=== PATIENT | male | born 1940 | race Caucasian/White ===

== ENCOUNTER → 2016-05-01 | Outpatient (CLI) | payer OTHER ==
[~2016-05-01] MED LIST: ALT25 PO; AMOX500C3 PO; ATOR-22 PO; ATOR10TA88 PO; CHOL100041 PO; CLIN1LOT TOP; CLOP1TAB15 PO; CYAN10005 PO; GLC500 PO; GLIM2TAB2 PO; GLIM4TAB2 PO; HYDR25SU20 PR; METF500T5 PO; NVLGI7030 SC; OMEP20CA9 PO; POTASSIUM PO; RAMI2.5C PO; SITA100T3 PO
[2016-05-01 11:42] LABS: ESTIMATED AVERAGE GLUCOSE 203 mg/dl; HA1C FLAG Normal (Normal)
[2016-05-01 12:56] LABS: RATIO 16.8 mcg/mg (0-30.0)
== END | disposition home or self-care (01) ==
LOC: C.LAB 10:18
PROVIDERS: ATTEND Nurse Practitioner Adult Health
DX: E11.65 Type 2 diabetes mellitus with hyperglycemia (principal); E78.5 Hyperlipidemia, unspecified

== ENCOUNTER 2016-09-20 20:21 | Emergency (ER) | payer OTHER ==
[~2016-09-20] VITALS: Ht 162.6 cm; Wt 82.7 kg
[~2016-09-20 20:21] MED LIST changes: -AMOX500C3 PO; -ATOR-22 PO; +ATOR10TA82 PO; -ATOR10TA88 PO; -CLIN1LOT TOP; -CLOP1TAB15 PO; -CYAN10005 PO; -HYDR25SU20 PR; -METF500T5 PO; -NVLGI7030 SC; -POTASSIUM PO; -RAMI2.5C PO
[2016-09-20 20:25] VITALS: TEMP 36.6; Ht 162.6 cm; Wt 82.7 kg
[2016-09-20 21:12] LABS: BASO % 0.5 %; BASO ABS # 0.06 K/uL (0-0.2); COMPLETE YES; EOS % 6.4 %; HEMATOCRIT 48.9 % (42-52); IG% 0.5 %; LYMPH % 25.8 %; LYMPH ABS # 2.98 K/uL (1.2-3.4); MEAN CELL VOLUME 92.8 fL (80-100); MEAN CORPUSCULAR HEMOGLOBIN 30.2 pg (25-34); MEAN CORPUSCULAR HGB CONC 32.5 g/dl (32-36); MEAN PLATELET VOLUME 9.8 fL (7.4-10.4); MONO % 7.8 %; PLATELET COUNT 261 K/uL (130-400); RED BLOOD COUNT 5.27 M/uL (4.7-6.1); WHITE BLOOD COUNT 11.55 K/uL (4.8-10.8)
[2016-09-20 21:21] LABS: INR 1.1 (0.9-1.1); PARTIAL THROMBOPLASTIN RATIO 1.1; PROTHROMBIN TIME (PATIENT) 11.4 SECONDS (9.0-12.0)
[2016-09-20] MEDS ORDERED: METF500T5 PO (21:29)
[2016-09-20] MEDS ORDERED: AMOX500C3 PO (21:29)
[2016-09-20] MEDS ORDERED: CYAN10005 PO (21:29)
[2016-09-20] MEDS ORDERED: CLIN1LOT TOP (21:29)
[2016-09-20] MEDS ORDERED: RAMI2.5C PO (21:29)
[2016-09-20] MEDS ORDERED: NVLGI7030 SC ×2 (21:29)
[2016-09-20] MEDS ORDERED: HYDR25SU20 PR (21:29)
[2016-09-20] MEDS ORDERED: ATOR-22 PO (21:29)
[2016-09-20 21:30] LABS: BLOOD UREA NITROGEN 27 mg/dl (7-18); BUN/CREATININE RATIO 21.1 (10-20); CALCIUM 9.1 mg/dl (8.5-10.1); CARBON DIOXIDE 26 mmol/L (21-32); CHLORIDE 109 mmol/L (98-107); GLUCOSE 98 mg/dl (70-99); SODIUM 143 mmol/L (136-145)
[2016-09-20] MEDS ORDERED: POTASSIUM PO (21:32)
[2016-09-20 21:36] LABS: ALKALINE PHOSPHATASE 95 U/L (45-117); ALT/SGPT 43 U/L (12-78); AST/SGOT 21 U/L (15-37); CKMB/CK RATIO 2.6 (0-3.0)
[2016-09-20] MEDS ORDERED: CLOP1TAB15 PO (22:21)
--- NOTE | 2016-09-21 00:14 | EMERGENCY ROOM VISIT NOTE ---
History Report prepared by Jared: Chandler Recio Under the Supervision of: Dr. Radhames Rios D.O. First contact with patient: 20:36 Chief Complaint: RECTAL BLEEDING Stated Complaint: RECTAL BLEEDING History of Present Illness The patient is a 75 year old male who presents to the Emergency Room with complaints of sudden rectal bleeding starting earlier today. The patient states that he had colonoscopy and polypectomy 11 days ago due to the presence of 6 precancerous nodules. He reports that the doctor burned and clipped the site. The patient states that he was fine after the surgery, but he started to experience rectal bleeding today. He reports that he was in his kitchen when he had an accidental bowel movement. The patient states he went to the bathroom and noticed a lot of blood had passed during his bowel movement. The patient reports he was able to have a bowel movement earlier today prior to his incontinence episode and denies any bleeding during his prior movement. He reports that he has an upcoming colonoscopy in November. The patient states he is currently on a Ramipril due to his carotid artery issue. He states that he monitors the artery with his doctor once a year. The patient denies any rectal or abdominal pain. Source of History: patient Onset: today Position: other (rectum) Quality: other (bleeding) Timing: other (sudden) Modifying Factors (Worsening): other (bowel movement) Associated Symptoms: No abdominal pain Review of Systems See HPI for pertinent positives & negatives. A total of 10 systems reviewed and were otherwise negative. Past Medical & Surgical Medical Problems: (1) Diverticulosis Colon (W/O Ment Of Hemorrhage) (2) Hypertension Nos (3) Hypothyroidism Nos (4) Urin Tract Infection Nos (5) Vitamin D Deficiency Nos Social History Smoking Status: Former Smoker Drug Use: none Marital Status: single Housing Status: lives alone Occupation Status: retired Current/Historical Medications Scheduled Amoxicillin (Amoxil), 4 CAP PO UD Atorvastatin (Lipitor), 20 MG PO DAILY Cholecalciferol (D 1000), 2,000 UNIT PO QD Clindamycin Phosphate (Topical (Cleocin-T), 1 APPLN TOP PRN Clopidogrel (Plavix), 75 MG PO DAILY Cyanocobalamin (Vitamin B-12), 1,000 MCG PO DAILY Insulin Aspart 70/30 (Novolog Mix 70/30), 45 UNITS SC QPM Insulin Aspart Protamine & Asp (Novolog Mix 70/30), 34 UNITS SC QAM Metformin Hcl Er (Glucophage Er), 500 MG PO DAILY Omeprazole (Prilosec), 20 MG PO DAILY Ramipril (Ramipril), 1 CAP PO DAILY [Potassium], 99 MG PO DAILY Scheduled PRN Hydrocortisone Acetate (Rectal (Anusol-Hc), 25 MG MA HS PRN for Hemorrhoids Allergies Coded Allergies: Niacinamide (Unverified Allergy, Unknown, RASH, 01/03/15) Procaine (Unverified Allergy, Unknown, RASH, 01/03/15) Pyridoxine (Unverified Allergy, Unknown, RASH, 01/03/15) Riboflavin (Unverified Allergy, Unknown, RASH, 01/03/15) Tetracycline (Unverified Allergy, Unknown, RASH, 01/03/15) Thiamine (Unverified Allergy, Unknown, RASH, 01/03/15) Physical Exam Vital Signs Date Time Temp Pulse Resp B/P (MAP) Pulse Ox O2 Delivery O2 Flow Rate FiO2 09/21/16 00:19 81 18 157/69 95 09/20/16 23:10 79 16 160/77 90 Room Air 09/20/16 21:53 81 121/66 96 Room Air 09/20/16 20:25 36.6 99 16 165/81 99 Room Air Physical Exam CONSTITUTIONAL/VITAL SIGNS: Reviewed / noted above. GENERAL: Non-toxic in appearance. INTEGUMENTARY: Warm, dry, and [place]. HEAD: Normocephalic. EYES: without scleral icterus or trauma. ENT/OROPHARYNX: clear and moist. LYMPHADENOPATHY/NECK: Is supple without lymphadenopathy or meningismus. RESPIRATORY: Lungs clear and equal. CARDIOVASCULAR: Regular rate and rhythm. GI/ABDOMEN: Soft and nontender. No organomegaly or pulsatile mass. No rebound or guarding. Normal bowel sounds. EXTREMITIES: Warm and well perfused. BACK: No CVA tenderness. NEUROLOGICAL: Intact without focal deficits. PSYCHIATRIC: normal affect. MUSCULOSKELETAL: Normally developed with good muscle tone. Medical Decision & Procedures Laboratory Results 09/20/16 20:56 Red Blood Count 5.27, Mean Corpuscular Volume 92.8, Mean Corpuscular Hemoglobin 30.2, Mean Corpuscular Hemoglobin Concent 32.5, Mean Platelet Volume 9.8, Neutrophils (%) (Auto) 59.0, Lymphocytes (%) (Auto) 25.8, Monocytes (%) (Auto) 7.8, Eosinophils (%) (Auto) 6.4, Basophils (%) (Auto) 0.5, Neutrophils # (Auto) 6.81, Lymphocytes # (Auto) 2.98, Monocytes # (Auto) 0.90, Eosinophils # (Auto) 0.74, Basophils # (Auto) 0.06 09/20/16 20:56 Test 09/20/16 20:56 09/20/16 23:37 White Blood Count 11.55 K/uL (4.8-10.8) Red Blood Count 5.27 M/uL (4.7-6.1) Hemoglobin 15.9 g/dL (14.0-18.0) Hematocrit 48.9 % (42-52) Mean Corpuscular Volume 92.8 fL (80-100) Mean Corpuscular Hemoglobin 30.2 pg (25-34) Mean Corpuscular Hemoglobin Concent 32.5 g/dl (32-36) Platelet Count 261 K/uL (130-400) Mean Platelet Volume 9.8 fL (7.4-10.4) Neutrophils (%) (Auto) 59.0 % Lymphocytes (%) (Auto) 25.8 % Monocytes (%) (Auto) 7.8 % Eosinophils (%) (Auto) 6.4 % Basophils (%) (Auto) 0.5 % Neutrophils # (Auto) 6.81 K/uL (1.4-6.5) Lymphocytes # (Auto) 2.98 K/uL (1.2-3.4) Monocytes # (Auto) 0.90 K/uL (0.11-0.59) Eosinophils # (Auto) 0.74 K/uL (0-0.5) Basophils # (Auto) 0.06 K/uL (0-0.2) RDW Standard Deviation 47.6 fL (36.4-46.3) RDW Coefficient of Variation 14.1 % (11.5-14.5) Immature Granulocyte % (Auto) 0.5 % Immature Granulocyte # (Auto) 0.06 K/uL (0.00-0.02) Prothrombin Time 11.4 SECONDS (9.0-12.0) Prothromb Time International Ratio 1.1 (0.9-1.1) Activated Partial Thromboplast Time 27.5 SECONDS (21.0-31.0) Partial Thromboplastin Ratio 1.1 Anion Gap 8.0 mmol/L (3-11) Est Creatinine Clear Calc Drug Dose 46.2 ml/min Estimated GFR () 61.0 Estimated GFR (Non- 52.6 BUN/Creatinine Ratio 21.1 (10-20) Calcium Level 9.1 mg/dl (8.5-10.1) Total Bilirubin 0.5 mg/dl (0.2-1) Direct Bilirubin 0.1 mg/dl (0-0.2) Aspartate Amino Transf (AST/SGOT) 21 U/L (15-37) Alanine Aminotransferase (ALT/SGPT) 43 U/L (12-78) Alkaline Phosphatase 95 U/L (45-117) Total Creatine Kinase 112 U/L (39-308) Creatine Kinase MB 2.9 ng/ml (0.5-3.6) Creatine Kinase MB Ratio 2.6 (0-3.0) Troponin I < 0.015 ng/ml (0-0.045) Total Protein 7.1 gm/dl (6.4-8.2) Albumin 3.5 gm/dl (3.4-5.0) Bedside Glucose 86 mg/dl (70-99) Laboratory results as stated above per my review. ECG Indication: other (rectal bleeding) Rate (beats per minute): 91 Rhythm: normal sinus Findings: no acute ischemic change, no ectopy ED Course 203: Previous medical records were reviewed. The patient was evaluated in room B02. A complete history and physical examination was performed. 2347: On reevaluation, the patient is resting comfortably. I discussed the results and findings with the patient. He verbalized agreement of the treatment plan. He was discharged home. Medical Decision Differential includes acute coronary syndrome, myocardial infarction, CVA, TIA, anemia, infection, pneumonia, UTI, pyelonephritis, poor nutrition, dehydration, electrolyte disturbance,hypoglycemia. Medication Reconciliation: I attest that I have personally reviewed the patient' s current medication list. Blood pressure Screening: Patient was found to have an elevated blood pressure and was referred to their primary doctor for recheck and further treatment. This is a 75-year-old male who presents to the ED with a chief complaint of rectal bleeding. The patient states that he had a polypectomy 10 days ago during colonoscopy. He states that one of the polyps bled and a Was placed. Tonight he had an episode of bloody bowel movement about 30 minute prior to arrival. The patient denies any other symptoms. His initial blood pressure was hypertensive. The patient's exam was unremarkable. His hemoglobin was 15.9. The BUN is 27. Complete metabolic panel was normal. Troponin is negative. The patient was unable to have any additional bloody stools during his ED stay. He was observed for 4 hours without any additional bleeding. He was felt to be stable for discharge. He was told to return should he have any recurrence or additional bleeding. Impression Primary Impression: GI bleed Scribe Attestation The scribe's documentation has been prepared under my direction and personally reviewed by me in its entirety. I confirm that the note above accurately reflects all work, treatment, procedures, and medical decision making performed by me. Departure Information Dispostion Home / Self-Care Referrals No Doctor, Assigned (PCP) Patient Instructions My [facility] Additional Instructions Return to the emergency department for recheck of blood work if you have any additional significant rectal bleeding. Follow-up with your doctor for further care and evaluation in 1-2 days. Return to the emergency department for worsening or new symptoms or any concerns. You have been examined and treated today on an emergency basis only. This is not a substitute for, or an effort to provide, complete comprehensive medical care. It is impossible to recognize and treat all injuries or illnesses in a single emergency department visit. It is therefore important that you follow up closely with your doctor. Call as soon as possible for an appointment.
[2016-09-21 00:19] VITALS: BP 157/69; PULSE 81; O2SAT 95
== END 2016-09-21 00:20 | disposition home or self-care (01) ==
LOC: C.EDB 20:22
DX: K92.2 Gastrointestinal hemorrhage, unspecified (principal); Z98.890 Other specified postprocedural states; Z86.010 Personal history of colon polyps; Z79.899 Other long term (current) drug therapy; I10 Essential (primary) hypertension; E03.9 Hypothyroidism, unspecified; Z87.440 Personal history of urinary (tract) infections; E55.9 Vitamin D deficiency, unspecified; Z87.891 Personal history of nicotine dependence; Z79.01 Long term (current) use of anticoagulants; Z79.82 Long term (current) use of aspirin

== ENCOUNTER → 2016-10-31 | Outpatient (CLI) | payer OTHER ==
[~2016-10-31] MED LIST changes: -ALT25 PO; +AMOX500C3 PO; +ATOR-22 PO; -ATOR10TA82 PO; +CLIN1LOT TOP; +CLOP1TAB15 PO; +CYAN10005 PO; -GLC500 PO; -GLIM2TAB2 PO; -GLIM4TAB2 PO; +HYDR25SU20 PR; +METF500T5 PO; +NVLGI7030 SC; +POTASSIUM PO; +RAMI2.5C PO; -SITA100T3 PO
[2016-10-31 09:51] LABS: ESTIMATED AVERAGE GLUCOSE 192 mg/dl; HA1C FLAG Normal (Normal)
[2016-10-31 09:53] LABS: ALT/SGPT 40 U/L (12-78); BLOOD UREA NITROGEN 24 mg/dl (7-18); BUN/CREATININE RATIO 24.5 (10-20); CARBON DIOXIDE 26 mmol/L (21-32); CHLORIDE 105 mmol/L (98-107); CREATININE 0.98 mg/dl (0.60-1.40); GLUCOSE 291 mg/dl (70-99); POTASSIUM 4.3 mmol/L (3.5-5.1); SODIUM 137 mmol/L (136-145)
[2016-10-31 09:57] LABS: ALB/GLOB RATIO 0.9 (0.9-2); ALKALINE PHOSPHATASE 88 U/L (45-117); AST/SGOT 23 U/L (15-37); CHOLESTEROL 90 mg/dl (0-200); CHOLESTEROL/HDL RATIO 3.1; HDL CHOLESTEROL 29 mg/dl; LDL CHOLESTEROL CALCULATED 49 mg/dl; TRIGLYCERIDES 61 mg/dl (0-150); VERY LOW DENSITY LIPOPROT CALC 12 mg/dl
== END | disposition home or self-care (01) ==
LOC: C.LAB 07:18
PROVIDERS: ATTEND Nurse Practitioner Adult Health
DX: E78.5 Hyperlipidemia, unspecified (principal); E11.65 Type 2 diabetes mellitus with hyperglycemia; I10 Essential (primary) hypertension

== ENCOUNTER → 2017-02-14 | Outpatient (CLI) | payer OTHER ==
[2017-02-14 09:37] LABS: HEMATOCRIT 51.3 % (42-52)
[2017-02-14 09:59] LABS: ESTIMATED AVERAGE GLUCOSE 174 mg/dl; HA1C FLAG Normal (Normal)
== END | disposition home or self-care (01) ==
LOC: C.LAB 08:34
PROVIDERS: ATTEND Nurse Practitioner Adult Health
DX: E78.5 Hyperlipidemia, unspecified (principal); E11.65 Type 2 diabetes mellitus with hyperglycemia; Z79.4 Long term (current) use of insulin; I10 Essential (primary) hypertension

== ENCOUNTER → 2017-06-17 | Outpatient (CLI) | payer OTHER ==
[~2017-06-17] MED LIST changes: +OPTIRAY 320 IV PRN
[2017-06-17 16:45] LABS: BASO % 0.4 %; BASO ABS # 0.06 K/uL (0-0.2); EOS % 1.9 %; EOS ABS # 0.26 K/uL (0-0.5); HEMATOCRIT 50.4 % (42-52); IG# 0.05 K/uL (0.00-0.02); LYMPH % 20.4 %; LYMPH ABS # 2.74 K/uL (1.2-3.4); MEAN CELL VOLUME 92.3 fL (80-100); MEAN CORPUSCULAR HEMOGLOBIN 31.1 pg (25-34); MEAN CORPUSCULAR HGB CONC 33.7 g/dl (32-36); MEAN PLATELET VOLUME 10.2 fL (7.4-10.4); MONO % 6.1 %; MONO ABS # 0.82 K/uL (0.11-0.59); NEUT % 70.8 %; NEUT ABS # 9.47 K/uL (1.4-6.5); PLATELET COUNT 183 K/uL (130-400); RED CELL DISTRIBUTION WIDTH CV 15.3 % (11.5-14.5); RED CELL DISTRIBUTION WIDTH SD 51.4 fL (36.4-46.3)
--- NOTE | 2017-06-17 16:57 | DIAGNOSTIC IMAGING REPORT ---
CT ANGIOGRAM OF THE CHEST CLINICAL HISTORY: Hypoxia COMPARISON STUDY: 09/14/2013 TECHNIQUE: Following the IV administration of 100 mL of Optiray-320, CT angiogram of the thorax was performed from the thoracic inlet to the lung bases utilizing the pulmonary embolus protocol. Images are reviewed in the axial, sagittal, and coronal planes. IV contrast was administered without complication. MIP imaging was performed. A dose lowering technique was utilized adhering to the principles of ALARA. CT DOSE: 511.86 mGycm FINDINGS: There is persistent mediastinal and hilar lymphadenopathy. An index right paratracheal lymph node measures 12 mm in short axis. This previously measured 10 mm. An index subcarinal lymph node measures 15 mm in short axis. This previously measured 13 mm. There was no evidence of thoracic aortic dilatation. There were no pulmonary artery filling defects to indicate acute pulmonary embolism. No pleural effusions are visualized. There is a solid 10.5 mm right upper lobe pulmonary nodule. This previously measured 9.6 mm. The slow growth rate favors a benign etiology. There is a stable 7 mm subpleural left lower lobe pulmonary nodule. There is no lobar consolidation. There are dependent atelectatic changes. There is subpleural interstitial thickening with an upper lung zone predominance. This appears progressive. There is persistent diffuse esophageal wall thickening IMPRESSION: 1. No evidence of acute pulmonary embolism 2. Mild progression the patient's mediastinal and hilar lymphadenopathy 3. Essentially stable pulmonary nodules 4. Persistent diffuse esophageal thickening 5. Suspected underlying interstitial lung disease with a subpleural and upper lung zone predominance Electronically signed by: Franklin Johnson M.D. 06/17/2017 4:56 PM Dictated Date/Time: 06/17/2017 4:47 PM
[2017-06-17 17:04] LABS: ALBUMIN 3.4 gm/dl (3.4-5.0); ALT/SGPT 35 U/L (12-78); BLOOD UREA NITROGEN 26 mg/dl (7-18); CALCIUM 9.3 mg/dl (8.5-10.1); CARBON DIOXIDE 26 mmol/L (21-32); CREATININE 1.09 mg/dl (0.60-1.40); GLUCOSE 77 mg/dl (70-99); SODIUM 137 mmol/L (136-145)
[2017-06-17 17:09] LABS: ALKALINE PHOSPHATASE 94 U/L (45-117); AST/SGOT 20 U/L (15-37); TOTAL PROTEIN 7.1 gm/dl (6.4-8.2)
[2017-06-18 06:47] LABS: HEMOGLOBIN A1C 8.3 % (4.5-5.6)
== END | disposition home or self-care (01) ==
LOC: C.CTS 15:51
PROVIDERS: ATTEND Internal Medicine
DX: Z01.812 Encounter for preprocedural laboratory examination (principal); R09.02 Hypoxemia; E11.9 Type 2 diabetes mellitus without complications; Z79.4 Long term (current) use of insulin; I10 Essential (primary) hypertension; R06.00 Dyspnea, unspecified

== ENCOUNTER → 2017-06-24 | Outpatient (CLI) | payer OTHER ==
[~2017-06-24] MED LIST changes: -OPTIRAY 320 IV PRN
[2017-06-25 20:41] LABS: ANA SCREEN TC 249X NEGATIVE (NEGATIVE)
== END | disposition home or self-care (01) ==
LOC: C.LAB 08:25
PROVIDERS: ATTEND Internal Medicine
DX: R59.0 Localized enlarged lymph nodes (principal)

== ENCOUNTER → 2017-07-03 | Outpatient (CLI) | payer OTHER | END | disposition home or self-care (01) | LOC: C.LAB 17:18 | PROVIDERS: ATTEND Internal Medicine Pulmonary Disease | DX: J84.9 Interstitial pulmonary disease, unspecified (principal) ==

== ENCOUNTER → 2017-10-28 | Outpatient (CLI) | payer OTHER ==
[~2017-10-28] MED LIST changes: +INSDGIPEN SQ; +LVQ750 PO; +NVLGI/PEN SQ
[2017-10-28 12:36] LABS: HEMOGLOBIN A1C 7.9 % (4.5-5.6)
== END | disposition home or self-care (01) ==
LOC: C.LAB 10:37
PROVIDERS: ATTEND Nurse Practitioner Adult Health
DX: Z00.00 Encounter for general adult medical examination without abnormal findings (principal); E11.9 Type 2 diabetes mellitus without complications; Z79.4 Long term (current) use of insulin; I10 Essential (primary) hypertension

== ENCOUNTER 2017-11-04 11:55 | Inpatient (IN) | payer OTHER ==
[~2017-11-04] VITALS: Ht 162.6 cm; Wt 84.6 kg
[~2017-11-04 11:55] MED LIST changes: -INSDGIPEN SQ; -LVQ750 PO; -NVLGI/PEN SQ
[2017-11-04] MEDS ORDERED: OPTIRAY 320 IV PRN (12:15)
[2017-11-04] MEDS ORDERED: ONDANSETRON INJ 2 MG/ML 2 ML VIAL IV STA (12:17)
[2017-11-04 12:32] LABS: BASO % 0.3 %; BASO ABS # 0.04 K/uL (0-0.2); EOS % 0.5 %; EOS ABS # 0.08 K/uL (0-0.5); HEMATOCRIT 47.2 % (42-52); HEMOGLOBIN 15.6 g/dL (14.0-18.0); IG# 0.06 K/uL (0.00-0.02); LYMPH % 10.9 %; LYMPH ABS # 1.74 K/uL (1.2-3.4); MEAN CELL VOLUME 94.8 fL (80-100); MEAN CORPUSCULAR HEMOGLOBIN 31.3 pg (25-34); MEAN CORPUSCULAR HGB CONC 33.1 g/dl (32-36); MEAN PLATELET VOLUME 9.9 fL (7.4-10.4); MONO % 5.8 %; MONO ABS # 0.92 K/uL (0.11-0.59); NEUT % 82.1 %; NEUT ABS # 13.11 K/uL (1.4-6.5); PLATELET COUNT 236 K/uL (130-400); RED CELL DISTRIBUTION WIDTH CV 14.1 % (11.5-14.5); RED CELL DISTRIBUTION WIDTH SD 48.8 fL (36.4-46.3); WHITE BLOOD COUNT 15.95 K/uL (4.8-10.8)
[2017-11-04 12:41] LABS: INR 1.2 (0.9-1.1); PTT PATIENT 28.2 SECONDS (21.0-31.0)
--- NOTE | 2017-11-04 12:44 | DIAGNOSTIC IMAGING REPORT ---
CHEST ONE VIEW PORTABLE CLINICAL HISTORY: EVALUATE RESPIRATORY DISTRESS.DYSPNEA dyspnea COMPARISON STUDY: 05/18/2013 FINDINGS: Mild primary megaly. Increased interstitial prominence throughout both hemithoraces suggesting developing congestive failure and/or pulmonary edema. IMPRESSION: Developing congestive failure and/or pulmonary edema. The above report was generated using voice recognition software. It may contain grammatical, syntax or spelling errors. Electronically signed by: Dylan Sandoval M.D. 11/04/2017 12:43 PM Dictated Date/Time: 11/04/2017 12:42 PM
[2017-11-04 12:45] LABS: ALBUMIN 3.4 gm/dl (3.4-5.0); ALKALINE PHOSPHATASE 89 U/L (45-117); ALT/SGPT 33 U/L (12-78); AST/SGOT 20 U/L (15-37); BLOOD UREA NITROGEN 33 mg/dl (7-18); CALCIUM 8.8 mg/dl (8.5-10.1); CARBON DIOXIDE 23 mmol/L (21-32); CREATININE 1.09 mg/dl (0.60-1.40); GLUCOSE 259 mg/dl (70-99); POTASSIUM 4.1 mmol/L (3.5-5.1); SODIUM 137 mmol/L (136-145); TOTAL PROTEIN 7.3 gm/dl (6.4-8.2)
--- NOTE | 2017-11-04 13:45 | DIAGNOSTIC IMAGING REPORT ---
(CHEST FOR PE) ANGIO WITH CLINICAL HISTORY: 76 years-old Male presenting with ^EVALUATE FOR PE ^RESPIRATORY DISTRESS.DYSPNEA. TECHNIQUE: Multidetector CT angiography of the chest was performed after administration of intravenous contrast. 3-D volumetric and/or maximum intensity projection (MIP) images were subsequently reconstructed for review. IV contrast: 83 mL of Optiray 320. A dose lowering technique was used consistent with the principles of ALARA (as low as reasonably achievable). COMPARISON: 06/17/2017. CT DOSE (mGy.cm): The estimated cumulative dose is 457.90 mGy.cm. 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 Pulmonary vasculature: The study is suboptimal for the assessment of the pulmonary vascular tree secondary to timing of the contrast bolus and respiratory motion artifact. Allowing for limited image quality, no central filling defect to suggest pulmonary embolus. Main pulmonary artery enlarged measuring 3.5 cm in diameter. Flattening of the interventricular septum with relative enlargement of the right atrium and right ventricle. No intracardiac filling defect. No reflux of contrast into the hepatic veins. Remaining chest: On soft tissue windows, normal thyroid and thoracic inlet. Stable to slight interval increase in size of numerous mediastinal and hilar lymph nodes. And index node in the right paratracheal region measures 12 mm in the short axis, previously 11 mm. Atherosclerosis of the aorta. Mild multichamber enlargement of the heart. Coronary artery calcification. No pericardial or pleural effusion. Diffuse esophageal wall thickening greatest in the mid to distal portion as on prior exam. Cholecystectomy clips. On lung windows, solid nodule in the right middle lobe now measures 13 mm, previously 10 mm (series 4 image 148). Extensive peripheral groundglass and reticular opacities with diffuse added density of the lungs. This diffusely affects both upper and lower lobes. Solid 6 mm nodule in the lingula (series 4 image 153), previously 6 mm. Interlobular septal thickening also noted. On bone windows, degenerative changes of the spine. IMPRESSION: 1. Allowing for suboptimal image quality, no evidence of pulmonary embolus. 2. Diffuse added density of the lungs new from prior. Given the evidence of pulmonary arterial hypertension, this may indicate pulmonary edema. Interlobular septal thickening may also be secondary to congestive change. If the patient has underlying malignancy, these findings may also be due to lymphangitic carcinomatosis. 3. Chronic lung disease with subpleural fibrotic changes as on prior exam. 4. Stable to slight interval increase in size of the solid right middle lobe nodule, which has been present and is largely unchanged dating back to at least 2013 consistent with a benign etiology. Electronically signed by: Mp Henry M.D. 11/04/2017 1:44 PM Dictated Date/Time: 11/04/2017 1:18 PM
[2017-11-04] MEDS ORDERED: NVLGI/PEN SQ ×2 (13:46)
[2017-11-04] MEDS ORDERED: INSDGIPEN SQ (13:46)
[2017-11-04] MEDS ORDERED: FUROSEMIDE INJ 20 MG in SYRINGE 0 ML IV ONE ×2 (15:15→20:15)
[2017-11-04] MEDS ORDERED: FUROSEMIDE 40 MG/4 ML VIAL ONE (15:23)
--- NOTE | 2017-11-04 15:33 | EMERGENCY ROOM VISIT NOTE ---
History Report prepared by Jared: Niurka Matthews Under the Supervision of: Dr. John Rios M.D. First contact with patient: 12:00 Chief Complaint: SHORTNESS OF BREATH Stated Complaint: SOB History of Present Illness The patient is a 76 year old male who presents to the Emergency Room with complaints of worsening shortness of breath starting last night. The patient states that movement exacerbates his shortness of breath. The patient states that he wears 5L of Oxygen at home. He states that his pulse ox is usually around 70 but sometimes goes up to 80. The patient states that he stays constant at 5L and that he does not turn it up when he walks around. He reports that he does have portable Oxygen when he leaves his home but that it only goes up to 4L. The patient reports having a cough but states that this has been chronic. He denies being febrile. The patient states that he follows with the [facility] and states that he has an upcoming appointment. He denies being around any sick and he also denies changes in medications. The patient states that he is diabetic but denies being on steroids for it currently. Per nursing staff, the patient has an interstitial lung disease. The patient reports that he is not sure what is causing his lung disease. Per nursing staff , the patient went to the diabetic clinic today and became short of breath after walking from his car to the clinic. The patient reports that he lives by himself. Per notes, the patient has an interstitial lung disease, pulmonary hypertension , hypertension, and type 2 diabetes. Notes report that the patient was diagnosed with hypoxemia on 06/17/17 during a colonoscopy.The patient had an ABG on 07/05/17 and was 7.47/37/53, with O2 saturation at 87%. Notes report that the patient's average glucose is about 150 and that the patient is on multiple doses of insulin. Notes state that the patient remains compliant with his blood pressure medication. Source of History: patient, nursing staff, other (notes) Onset: last night Position: other (generalized) Quality: other (shortness of breath ) Timing: worsening Modifying Factors (Worsening): movement Associated Symptoms: + cough (chronic), No fevers Review of Systems See HPI for pertinent positives and negatives. A total of ten systems were reviewed and were otherwise negative. Past Medical & Surgical Medical Problems: (1) Carotid artery plaque (2) Diverticulosis Colon (W/O Ment Of Hemorrhage) (3) HTN (hypertension) (4) Hypertension Nos (5) Hypothyroidism Nos (6) Hypoxia (7) Interstitial lung disease (8) Pulmonary hypertension (9) Type 2 diabetes mellitus (10) Urin Tract Infection Nos (11) Vitamin D Deficiency Nos Surgical Problems: (1) Cholecystectomy planned Family History FH: cancer FH: heart disease Hypertension Social History Smoking Status: Former Smoker Drug Use: none Marital Status: single Housing Status: lives alone Occupation Status: retired Current/Historical Medications Scheduled Amoxicillin (Amoxil), 4 CAP PO UD Atorvastatin (Lipitor), 20 MG PO DAILY Cholecalciferol (D 1000), 2,000 UNIT PO QD Clindamycin Phosphate (Topical (Cleocin-T), 1 APPLN TOP PRN Clopidogrel (Plavix), 75 MG PO DAILY Cyanocobalamin (Vitamin B-12), 1,000 MCG PO DAILY Insulin Aspart (Novolog Flexpen), 8 UNITS SQ BIDM Insulin Aspart (Novolog Flexpen), 10 UNITS SQ QDD Insulin Glargine (Lantus Solostar), 61 UNITS SQ QPM Metformin Hcl Er (Glucophage Er), 500 MG PO DAILY Omeprazole (Prilosec), 20 MG PO DAILY Ramipril (Ramipril), 1 CAP PO DAILY [Potassium], 99 MG PO DAILY Scheduled PRN Hydrocortisone Acetate (Rectal (Anusol-Hc), 25 MG [place] HS PRN for Hemorrhoids Allergies Coded Allergies: Niacinamide (Unverified Allergy, Unknown, RASH, 11/04/17) Procaine (Unverified Allergy, Unknown, RASH, 11/04/17) Pyridoxine (Unverified Allergy, Unknown, RASH, 11/04/17) Riboflavin (Unverified Allergy, Unknown, RASH, 11/04/17) Tetracycline (Unverified Allergy, Unknown, RASH, 11/04/17) Thiamine (Unverified Allergy, Unknown, RASH, 11/04/17) Physical Exam Vital Signs Date Time Temp Pulse Resp B/P (MAP) Pulse Ox O2 Delivery O2 Flow Rate FiO2 11/04/17 16:30 95 34 114/63 83 Nasal Cannula 5.0 11/04/17 16:14 97 11/04/17 16:00 98 30 118/66 83 Nasal Cannula 5.0 11/04/17 15:37 103 28 83 Nasal Cannula 5.0 11/04/17 15:32 136/81 11/04/17 15:00 101 27 143/76 89 Nasal Cannula 5.0 11/04/17 14:30 100 21 112/58 88 Nasal Cannula 5.0 11/04/17 14:00 104 23 123/69 91 Oxymask 5.0 11/04/17 13:30 110 33 118/64 84 Oxymask 5.0 11/04/17 13:27 127/66 11/04/17 13:00 107 35 105/56 87 Oxymask 6.0 11/04/17 12:32 108 28 122/71 86 Nasal Cannula 6.0 11/04/17 12:10 90 Oxymask 6.0 11/04/17 12:09 90 Oxymask 6.0 11/04/17 12:07 114 11/04/17 12:03 37.6 124 30 168/80 77 Nasal Cannula 4.0 Physical Exam GENERAL: Awake, alert, well-appearing, mild respiratory distress HENT: Normocephalic, atraumatic. Oropharynx unremarkable. EYES: Normal conjunctiva. Sclera non-icteric. NECK: Supple. No nuchal rigidity. RESPIRATORY: Clear to auscultation. No wheezes, but crackles at bases. Mild work of breathing. CARDIAC: Tachycardic. Normal rhythm. Extremities warm and well perfused. GI: Soft, non-distended. No tenderness to palpation. No rebound or guarding. No masses. RECTAL: Deferred. MUSCULOSKELETAL: Atraumatic. Chest examination reveals no tenderness. LOWER EXTREMITIES: Calves are equal size bilaterally and non-tender. No edema NEURO: Normal sensorium. No sensory or motor deficits noted. No facial droop. SKIN: Warm and dry. No rash or jaundice noted. Medical Decision & Procedures ER Provider Diagnostic Interpretation: Radiology results as stated below per my review and radiologist interpretation: CHEST ONE VIEW PORTABLE CLINICAL HISTORY: EVALUATE RESPIRATORY DISTRESS.DYSPNEA dyspnea COMPARISON STUDY: 05/18/2013 FINDINGS: Mild primary megaly. Increased interstitial prominence throughout both hemithoraces suggesting developing congestive failure and/or pulmonary edema. IMPRESSION: Developing congestive failure and/or pulmonary edema. The above report was generated using voice recognition software. It may contain grammatical, syntax or spelling errors. Electronically signed by: Dylan Sandoval M.D. 11/04/2017 12:43 PM Dictated Date/Time: 11/04/2017 12:42 PM (CHEST FOR PE) ANGIO WITH CLINICAL HISTORY: 76 years-old Male presenting with ^EVALUATE FOR PE ^RESPIRATORY DISTRESS.DYSPNEA. TECHNIQUE: Multidetector CT angiography of the chest was performed after administration of intravenous contrast. 3-D volumetric and/or maximum intensity projection (MIP) images were subsequently reconstructed for review. IV contrast: 83 mL of Optiray 320. A dose lowering technique was used consistent with the principles of ALARA (as low as reasonably achievable). COMPARISON: 06/17/2017. CT DOSE (mGy.cm): The estimated cumulative dose is 457.90 mGy.cm. FINDINGS: Music Engineer topogram: Cholecystectomy clips. Pulmonary vasculature: The study is suboptimal for the assessment of the pulmonary vascular tree secondary to timing of the contrast bolus and respiratory motion artifact. Allowing for limited image quality, no central filling defect to suggest pulmonary embolus. Main pulmonary artery enlarged measuring 3.5 cm in diameter. Flattening of the interventricular septum with relative enlargement of the right atrium and right ventricle. No intracardiac filling defect. No reflux of contrast into the hepatic veins. Remaining chest: On soft tissue windows, normal thyroid and thoracic inlet. Stable to slight interval increase in size of numerous mediastinal and hilar lymph nodes. And index node in the right paratracheal region measures 12 mm in the short axis, previously 11 mm. Atherosclerosis of the aorta. Mild multichamber enlargement of the heart. Coronary artery calcification. No pericardial or pleural effusion. Diffuse esophageal wall thickening greatest in the mid to distal portion as on prior exam. Cholecystectomy clips. On lung windows, solid nodule in the right middle lobe now measures 13 mm, previously 10 mm (series 4 image 148). Extensive peripheral groundglass and reticular opacities with diffuse added density of the lungs. This diffusely affects both upper and lower lobes. Solid 6 mm nodule in the lingula (series 4 image 153), previously 6 mm. Interlobular septal thickening also noted. On bone windows, degenerative changes of the spine. IMPRESSION: 1. Allowing for suboptimal image quality, no evidence of pulmonary embolus. 2. Diffuse added density of the lungs new from prior. Given the evidence of pulmonary arterial hypertension, this may indicate pulmonary edema. Interlobular septal thickening may also be secondary to congestive change. If the patient has underlying malignancy, these findings may also be due to lymphangitic carcinomatosis. 3. Chronic lung disease with subpleural fibrotic changes as on prior exam. 4. Stable to slight interval increase in size of the solid right middle lobe nodule, which has been present and is largely unchanged dating back to at least 2013 consistent with a benign etiology. Electronically signed by: Mp Henry M.D. 11/04/2017 1:44 PM Dictated Date/Time: 11/04/2017 1:18 PM Laboratory Results 11/04/17 12:00 Red Blood Count 4.98, Mean Corpuscular Volume 94.8, Mean Corpuscular Hemoglobin 31.3, Mean Corpuscular Hemoglobin Concent 33.1, Mean Platelet Volume 9.9, Neutrophils (%) (Auto) 82.1, Lymphocytes (%) (Auto) 10.9, Monocytes (%) (Auto) 5.8, Eosinophils (%) (Auto) 0.5, Basophils (%) (Auto) 0.3, Neutrophils # (Auto) 13.11, Lymphocytes # (Auto) 1.74, Monocytes # (Auto) 0.92, Eosinophils # (Auto) 0.08, Basophils # (Auto) 0.04 11/04/17 12:00 Test 11/04/17 12:00 11/04/17 12:45 11/04/17 15:55 White Blood Count 15.95 K/uL (4.8-10.8) Red Blood Count 4.98 M/uL (4.7-6.1) Hemoglobin 15.6 g/dL (14.0-18.0) Hematocrit 47.2 % (42-52) Mean Corpuscular Volume 94.8 fL (80-100) Mean Corpuscular Hemoglobin 31.3 pg (25-34) Mean Corpuscular Hemoglobin Concent 33.1 g/dl (32-36) Platelet Count 236 K/uL (130-400) Mean Platelet Volume 9.9 fL (7.4-10.4) Neutrophils (%) (Auto) 82.1 % Lymphocytes (%) (Auto) 10.9 % Monocytes (%) (Auto) 5.8 % Eosinophils (%) (Auto) 0.5 % Basophils (%) (Auto) 0.3 % Neutrophils # (Auto) 13.11 K/uL (1.4-6.5) Lymphocytes # (Auto) 1.74 K/uL (1.2-3.4) Monocytes # (Auto) 0.92 K/uL (0.11-0.59) Eosinophils # (Auto) 0.08 K/uL (0-0.5) Basophils # (Auto) 0.04 K/uL (0-0.2) RDW Standard Deviation 48.8 fL (36.4-46.3) RDW Coefficient of Variation 14.1 % (11.5-14.5) Immature Granulocyte % (Auto) 0.4 % Immature Granulocyte # (Auto) 0.06 K/uL (0.00-0.02) Prothrombin Time 12.2 SECONDS (9.0-12.0) Prothromb Time International Ratio 1.2 (0.9-1.1) Activated Partial Thromboplast Time 28.2 SECONDS (21.0-31.0) Partial Thromboplastin Ratio 1.1 Anion Gap 9.0 mmol/L (3-11) Est Creatinine Clear Calc Drug Dose 54.8 ml/min Estimated GFR () 75.0 Estimated GFR (Non- 64.7 BUN/Creatinine Ratio 29.8 (10-20) Calcium Level 8.8 mg/dl (8.5-10.1) Total Bilirubin 1.0 mg/dl (0.2-1) Aspartate Amino Transf (AST/SGOT) 20 U/L (15-37) Alanine Aminotransferase (ALT/SGPT) 33 U/L (12-78) Alkaline Phosphatase 89 U/L (45-117) Troponin I < 0.015 ng/ml (0-0.045) Pro-B-Type Natriuretic Peptide 342 pg/ml (0-1800) Total Protein 7.3 gm/dl (6.4-8.2) Albumin 3.4 gm/dl (3.4-5.0) Globulin 3.9 gm/dl (2.5-4.0) Albumin/Globulin Ratio 0.9 (0.9-2) Arterial Blood pH 7.45 (7.35-7.45) Arterial Blood Partial Pressure CO2 33 mmHg (35-46) Arterial Blood Partial Pressure O2 53 mm/Hg (80-95) Arterial Blood HCO3 23 mmol/L (19-24) Arterial Blood Oxygen Saturation 87.0 % (90-95) Arterial Blood Base Excess -0.2 mEq/L (-9-1.8) Arterial Blood Gas Delivery 6L Armand Test POS (POS) Bedside Glucose 222 mg/dl (70-99) Laboratory results reviewed by me Medications Administered Medications (Trade) Dose Ordered Sig/Allison Route Start Time Stop Time Status Last Admin Dose Admin Ondansetron HCl (Zofran Inj) 4 mg NOW STAT IV 11/04/17 12:17 11/04/17 12:18 DC 11/04/17 12:19 4 MG Furosemide (Lasix Inj) 40 mg STK-MED ONCE .ROUTE 11/04/17 15:23 11/04/17 15:24 DC 11/04/17 15:27 20 MG Insulin Aspart (novoLOG PER UNIT) 10 units STK-MED ONCE .ROUTE 11/04/17 16:05 11/04/17 16:06 DC 11/04/17 16:36 10 UNITS ECG Per My Interpretation Indication: SOB/dyspnea Rate (beats per minute): 122 Rhythm: sinus tachycardia Findings: other (normal intervals, normal axis, no ST segment elevation) Comparison ECG Date: now tachycardic, otherwise no change from 09/20/16 ED Course 1201: The patient was evaluated in room A1. A complete history and physical exam was performed. 1217: Ordered Zofran Inj 4 mg IV. 1435: I checked on the patient and he is feeling improved. I called out for the [facility] barrel tester and drainer. 1446: Discussed the patient's case with Dr. Pollock-[facility] Night Worker. He recommends diuresis and continued follow-up. 1508: Upon reexamination, the patient was resting. I discussed the test results and treatment plan with him. The patient will be evaluated for further management by Dr. Amaya. 1515: Ordered Furosemide 20 mg/Syringe 2 ml @ 4 mls/min IV. 1523: Ordered Lasix Inj 40 mg IV. Medical Decision Differential diagnosis: Etiologies such as infections, reactive airway disease, pneumonia, pneumothorax , COPD, CHF, cardiac ischemia, pulmonary embolism, musculoskeletal, gastrointestinal, as well as others were entertained. Patient presents complaining of worsening shortness of breath over the last approximately 24 hours. States he was outside yesterday. Is on a baseline 5 L of oxygen. Follows at the [facility] for interstitial lung disease and pulmonary hypertension. Patient denies any chest pain. States he felt more winded especially with exertion and went to his diabetes appointment today. Extremely winded from the office to the meeting and they referred him here for further evaluation. States his pulse ox is normal in the high 70s-80 on 5 L of oxygen. Does state he does feel more short of breath. Denies any chest pain. Experience some nausea earlier and has some mild diffuse abdominal cramping. States this started when he came into the emergency room. Not chronically on steroids or other breathing treatments. Does not have a known underlying cause for his interstitial restrictive lung disease. No significant infectious history reported but would not take much of a deficit with his interstitial lung disease to cause worsening shortness of breath. Infectious workup including x-ray and CT to exclude pulmonary embolism or pneumonia was completed. Lower suspicion this is acutely cardiac. Benign abdominal exam with some mild gas pain. Doubt this is a dissection or other acute intra- abdominal process. EKG shows sinus tachycardia without ischemic changes. Does have leukocytosis of almost 16 with shift. No elevated proBNP or troponin. There is some evidence of possible CHF on x-ray and CT of the chest was completed. On 6 L oxygen ABG shows a PO2 of 53. No PE noted. Some findings consistent with mild pulmonary edema. Back down to baseline 5 L of nasal oxygen and feels improved at rest. Did call and discuss with the [facility] barrel tester and drainer client relationship executive regarding his case. They recommend some light diuresis. Never been on Lasix for diuresis before. Still appears to be working some regarding breathing. Feel that observation overnight for monitor diuresis is prudent. The barrel tester and drainer did not feel strongly about starting steroids at this point. Patient in agreement with this plan especially as he lives alone. Medication Reconcilliation Current Medication List: was personally reviewed by me Blood Pressure Screening Patient's blood pressure: Low blood pressure will be monitored by the hospitalist Consults Time Called: [phone] Consulting Physician: Dr. Pollock-[facility] Pulmonolgist Returned Call: [phone] [facility] the [facility] He recommends diuresis and continued follow-up. Additional Consults: Time Called: [phone] Consulted Physician: Dr. Chandra Valdes Returned Call: [phone] Additional Comments: Discussed the patient's case. The patient will be evaluated for further treatment and disposition. Impression Primary Impression: Pulmonary edema Additional Impressions: Hypoxia Interstitial lung disease Scribe Attestation The scribe's documentation has been prepared under my direction and personally reviewed by me in its entirety. I confirm that the note above accurately reflects all work, treatment, procedures, and medical decision making performed by me. Departure Information Dispostion Being Evaluated By Hospitalist Referrals Mp Yeboah M.D. (PCP) Patient Instructions My [facility] Problem Qualifiers Primary Impression: Pulmonary edema Chronicity: acute Qualified Codes: J81.0 - Acute pulmonary edema
[2017-11-04] MEDS ORDERED: INSULIN ASPART 100 UNITS/ML 3 ML PEN SC ONE (16:00)
[2017-11-04] MEDS ORDERED: NovoLOG PER UNIT CHARGE ONE (16:05)
[2017-11-04] MEDS ORDERED: GLUCOSE 10 TABS/TUBE PO PRN (17:00)
[2017-11-04] MEDS ORDERED: ALBUT/IPRATROP 3MG/0.5MG NEB 3 ML VIAL INH PRN (17:00)
[2017-11-04] MEDS ORDERED: CARBOHYDRATES FOR HYPOGLYCEMIA PO PRN (17:00)
[2017-11-04] MEDS ORDERED: ONDANSETRON INJ 2 MG/ML 2 ML VIAL IV PRN (17:00)
[2017-11-04] MEDS ORDERED: GLUCOSE 40% GEL 15 GM TUBE PO PRN (17:00)
[2017-11-04] MEDS ORDERED: DC ALL PREVIOUSLY ORDERED DIABETES MEDS ONE (17:00)
[2017-11-04] MEDS ORDERED: DEXTROSE 50% 50 ML SYR IV PRN (17:00)
[2017-11-04] MEDS ORDERED: GLUCAGON FOR INJ 1 MG VIAL SQ PRN (17:00)
[2017-11-04] MEDS ORDERED: ACETAMINOPHEN 325 MG TAB PO PRN (17:00)
[2017-11-04 18:20] VITALS: BP 116/73; PULSE 91; TEMP 36.6; O2SAT 89
[2017-11-04 18:33] VITALS: BP 116/73; PULSE 91; TEMP 36.6; Ht 162.6 cm; Wt 84.6 kg
[2017-11-04 19:14] LABS: PHOSPHORUS 3.1 mg/dl (2.5-4.9)
--- NOTE | 2017-11-04 20:02 | History and Physical ---
History & Physical Date & Time of Service: Nov 04, 2017 at 19:34 Chief Complaint: Hypoxia Primary Care Physician: Mp Yeboah M.D. History of Present Illness Source: patient Patient is a pleasant 76yo male with history of HTN, DM, HLP, ILD on 5 liters of O2 at home. He follows with Dr. Ivy Thompson at [facility] for his ILD. Patient was out to dinner last night at [facility] when he started having shaking chills and some mild increase in shortness of breath. Chills have persisted. He reports some stable baseline shortness of breath at present. No increase in O2 requirement. His oxygen saturations have been at baseline (high 70's to low 90's). He denies fevers, productive cough, wheeze, worsening shortness of breath or urinary complaints. Denies abdominal pain, diarrhea or rash. Blood sugars have been more elevated than usual, 200's today. He had some nausea today with a small amount of vomit. He saw his diabetic DOG BOARDER today and was sent to the ER for further evaluation. In the ER he was found to be tachypneic with RR of 35, oxygen saturations 89% on 5L NC. No additional complaints today ER Course: Novolog 10u x 2, Lasix 40mg IV, Zofran 4mg Past Medical/Surgical History Medical Problems: Hypertension Diabetes Hyperlipidemia Interstitial Lung Disease - 5L O2 Carotid artery stenosis Diverticulosis Hypothyroidism Pulmonary hypertension Surgical Problems: (1) Cholecystectomy Right knee Family History FH: cancer FH: heart disease Hypertension Social History Smoking Status: Former Smoker Smokeless Tobacco Use: No Alcohol Use: none Drug Use: none Marital Status: single Housing status: lives alone Occupational Status: retired Immunizations History of Influenza Vaccine: No History of Tetanus Vaccine?: Yes History of Pneumococcal: Yes History of Hepatitis B Vaccine: Unknown Allergies Coded Allergies: Niacinamide (Unverified Allergy, Unknown, RASH, 11/04/17) Procaine (Unverified Allergy, Unknown, RASH, 11/04/17) Pyridoxine (Unverified Allergy, Unknown, RASH, 11/04/17) Riboflavin (Unverified Allergy, Unknown, RASH, 11/04/17) Tetracycline (Unverified Allergy, Unknown, RASH, 11/04/17) Thiamine (Unverified Allergy, Unknown, RASH, 11/04/17) Home Medications Scheduled Amoxicillin (Amoxil), 4 CAP PO UD Atorvastatin (Lipitor), 20 MG PO DAILY Cholecalciferol (D 1000), 2,000 UNIT PO QD Clindamycin Phosphate (Topical (Cleocin-T), 1 APPLN TOP PRN Clopidogrel (Plavix), 75 MG PO DAILY Cyanocobalamin (Vitamin B-12), 1,000 MCG PO DAILY Insulin Aspart (Novolog Flexpen), 8 UNITS SQ BIDM Insulin Aspart (Novolog Flexpen), 10 UNITS SQ QDD Insulin Glargine (Lantus Solostar), 61 UNITS SQ QPM Metformin Hcl Er (Glucophage Er), 500 MG PO DAILY Omeprazole (Prilosec), 20 MG PO DAILY Ramipril (Ramipril), 1 CAP PO DAILY [Potassium], 99 MG PO DAILY Scheduled PRN Hydrocortisone Acetate (Rectal (Anusol-Hc), 25 MG OK HS PRN for Hemorrhoids Review of Systems Constitutional: + chills, No fever, No sweats, No weight loss, No fatigue Eyes: No worsening of vision, No diplopia ENT: No hearing loss, No sore throat Respiratory: + shortness of breath (at baseline presently), No cough, No sputum , No wheezing, No dyspnea on exertion Cardiovascular: No chest pain, No orthopnea, No palpitations Abdomen: + nausea, + vomiting, No pain Musculoskeletal: No joint pain Genitourinary - Male: No hematuria, No dysuria Neurologic: No weakness Endocrine: No fatigue Hematologic / Lymphatic: No abnormal bleeding/bruising Integumentary: No rash Physical Exam Vital Signs Date Time Temp Pulse Resp B/P (MAP) Pulse Ox O2 Delivery O2 Flow Rate FiO2 11/04/17 18:33 36.6 91 20 116/73 Nasal Cannula 5.0 90 11/04/17 18:20 36.6 91 18 116/73 (87) 89 Nasal Cannula 4.5 11/04/17 17:30 94 26 124/85 84 Nasal Cannula 5.0 11/04/17 17:01 99 26 94/84 87 Nasal Cannula 5.0 11/04/17 16:30 95 34 114/63 83 Nasal Cannula 5.0 11/04/17 16:14 97 11/04/17 16:00 98 30 118/66 83 Nasal Cannula 5.0 11/04/17 15:37 103 28 83 Nasal Cannula 5.0 11/04/17 15:32 136/81 11/04/17 15:00 101 27 143/76 89 Nasal Cannula 5.0 11/04/17 14:30 100 21 112/58 88 Nasal Cannula 5.0 11/04/17 14:00 104 23 123/69 91 Oxymask 5.0 11/04/17 13:30 110 33 118/64 84 Oxymask 5.0 11/04/17 13:27 127/66 11/04/17 13:00 107 35 105/56 87 Oxymask 6.0 11/04/17 12:32 108 28 122/71 86 Nasal Cannula 6.0 11/04/17 12:10 90 Oxymask 6.0 11/04/17 12:09 90 Oxymask 6.0 11/04/17 12:07 114 11/04/17 12:03 37.6 124 30 168/80 77 Nasal Cannula 4.0 General: patient resting comfortably in bed, NAD, AA&O x 4, NC in place Skin: warm, dry, intact, no rashes or lesions HEENT: NC/AT, PERRL, EOMI, anicteric sclera, conjunctiva without injection, nares patent, moist mucus membranes, no oropharyngeal lesions, neck supple, trachea midline, no thyromegaly, no LAD Heart: +S1/S2, regular, no m/r/g Lungs: equal air entry bilaterally, diffuse end inspiratory crackles increased at bilateral bases, no rhonchi/wheezes Abdomen: soft, NT/ND, no masses/organomegaly/ascites Extremities: warm, well perfused, no clubbing, +CYANOSIS OF NAIL BEDS HANDS, 2 + palpable pulses in UE/LE bilaterally Neuro: grossly nonfocal Diagnostics Laboratory Results Results Past 24 Hours Test 11/04/17 12:00 11/04/17 12:45 11/04/17 15:55 11/04/17 16:00 Range/Units White Blood Count 15.95 4.8-10.8 K/uL Red Blood Count 4.98 4.7-6.1 M/uL Hemoglobin 15.6 14.0-18.0 g/dL Hematocrit 47.2 42-52 % Mean Corpuscular Volume 94.8 80-100 fL Mean Corpuscular Hemoglobin 31.3 25-34 pg Mean Corpuscular Hemoglobin Concent 33.1 32-36 g/dl Platelet Count 236 130-400 K/uL Mean Platelet Volume 9.9 7.4-10.4 fL Neutrophils (%) (Auto) 82.1 % Lymphocytes (%) (Auto) 10.9 % Monocytes (%) (Auto) 5.8 % Eosinophils (%) (Auto) 0.5 % Basophils (%) (Auto) 0.3 % Neutrophils # (Auto) 13.11 1.4-6.5 K/uL Lymphocytes # (Auto) 1.74 1.2-3.4 K/uL Monocytes # (Auto) 0.92 0.11-0.59 K/uL Eosinophils # (Auto) 0.08 0-0.5 K/uL Basophils # (Auto) 0.04 0-0.2 K/uL RDW Standard Deviation 48.8 36.4-46.3 fL RDW Coefficient of Variation 14.1 11.5-14.5 % Immature Granulocyte % (Auto) 0.4 % Immature Granulocyte # (Auto) 0.06 0.00-0.02 K/uL Prothrombin Time 12.2 9.0-12.0 SECONDS Prothromb Time International Ratio 1.2 0.9-1.1 Activated Partial Thromboplast Time 28.2 21.0-31.0 SECONDS Partial Thromboplastin Ratio 1.1 Sodium Level 137 136-145 mmol/L Potassium Level 4.1 3.5-5.1 mmol/L Chloride Level 105 98-107 mmol/L Carbon Dioxide Level 23 21-32 mmol/L Anion Gap 9.0 3-11 mmol/L Blood Urea Nitrogen 33 7-18 mg/dl Creatinine 1.09 0.60-1.40 mg/dl Est Creatinine Clear Calc Drug Dose 54.8 ml/min Estimated GFR () 75.0 Estimated GFR (Non- 64.7 BUN/Creatinine Ratio 29.8 10-20 Random Glucose 259 70-99 mg/dl Calcium Level 8.8 8.5-10.1 mg/dl Total Bilirubin 1.0 0.2-1 mg/dl Aspartate Amino Transf (AST/SGOT) 20 15-37 U/L Alanine Aminotransferase (ALT/SGPT) 33 12-78 U/L Alkaline Phosphatase 89 45-117 U/L Troponin I < 0.015 0-0.045 ng/ml Pro-B-Type Natriuretic Peptide 342 0-1800 pg/ml Total Protein 7.3 6.4-8.2 gm/dl Albumin 3.4 3.4-5.0 gm/dl Globulin 3.9 2.5-4.0 gm/dl Albumin/Globulin Ratio 0.9 0.9-2 Arterial Blood pH 7.45 7.35-7.45 Arterial Blood Partial Pressure CO2 33 35-46 mmHg Arterial Blood Partial Pressure O2 53 80-95 mm/Hg Arterial Blood HCO3 23 19-24 mmol/L Arterial Blood Oxygen Saturation 87.0 90-95 % Arterial Blood Base Excess -0.2 -9-1.8 mEq/L Arterial Blood Gas Delivery 6L Armand Test POS POS Bedside Glucose 222 70-99 mg/dl Urine Color YELLOW Urine Appearance CLEAR CLEAR Urine pH 5.0 4.5-7.5 Urine Specific [place] > 1.045 1.000-1.030 Urine Protein NEG NEG Urine Glucose (UA) NEG NEG Urine Ketones NEG NEG Urine Occult Blood NEG NEG Urine Nitrite NEG NEG Urine Bilirubin NEG NEG Urine Urobilinogen NEG NEG Urine Leukocyte Esterase NEG NEG Test 11/04/17 18:32 Range/Units Phosphorus Level 3.1 2.5-4.9 mg/dl Magnesium Level 1.8 1.8-2.4 mg/dl Microbiology Results 11/04/17 Blood Culture, Received Pending 11/04/17 Blood Culture, Received Pending Diagnostic Radiology CHEST ONE VIEW PORTABLE CLINICAL HISTORY: EVALUATE RESPIRATORY DISTRESS.DYSPNEA dyspnea COMPARISON STUDY: 05/18/2013 FINDINGS: Mild primary megaly. Increased interstitial prominence throughout both hemithoraces suggesting developing congestive failure and/or pulmonary edema. IMPRESSION: Developing congestive failure and/or pulmonary edema. The above report was generated using voice recognition software. It may contain grammatical, syntax or spelling errors. Electronically signed by: Dylan Sandoval M.D. 11/04/2017 12:43 PM Dictated Date/Time: 11/04/2017 12:42 PM (CHEST FOR PE) ANGIO WITH CLINICAL HISTORY: 76 years-old Male presenting with ^EVALUATE FOR PE ^RESPIRATORY DISTRESS.DYSPNEA. TECHNIQUE: Multidetector CT angiography of the chest was performed after administration of intravenous contrast. 3-D volumetric and/or maximum intensity projection (MIP) images were subsequently reconstructed for review. IV contrast: 83 mL of Optiray 320. A dose lowering technique was used consistent with the principles of ALARA (as low as reasonably achievable). COMPARISON: 06/17/2017. CT DOSE (mGy.cm): The estimated cumulative dose is 457.90 mGy.cm. FINDINGS: Transporter Driver topogram: Cholecystectomy clips. Pulmonary vasculature: The study is suboptimal for the assessment of the pulmonary vascular tree secondary to timing of the contrast bolus and respiratory motion artifact. Allowing for limited image quality, no central filling defect to suggest pulmonary embolus. Main pulmonary artery enlarged measuring 3.5 cm in diameter. Flattening of the interventricular septum with relative enlargement of the right atrium and right ventricle. No intracardiac filling defect. No reflux of contrast into the hepatic veins. Remaining chest: On soft tissue windows, normal thyroid and thoracic inlet. Stable to slight interval increase in size of numerous mediastinal and hilar lymph nodes. And index node in the right paratracheal region measures 12 mm in the short axis, previously 11 mm. Atherosclerosis of the aorta. Mild multichamber enlargement of the heart. Coronary artery calcification. No pericardial or pleural effusion. Diffuse esophageal wall thickening greatest in the mid to distal portion as on prior exam. Cholecystectomy clips. On lung windows, solid nodule in the right middle lobe now measures 13 mm, previously 10 mm (series 4 image 148). Extensive peripheral groundglass and reticular opacities with diffuse added density of the lungs. This diffusely affects both upper and lower lobes. Solid 6 mm nodule in the lingula (series 4 image 153), previously 6 mm. Interlobular septal thickening also noted. On bone windows, degenerative changes of the spine. IMPRESSION: 1. Allowing for suboptimal image quality, no evidence of pulmonary embolus. 2. Diffuse added density of the lungs new from prior. Given the evidence of pulmonary arterial hypertension, this may indicate pulmonary edema. Interlobular septal thickening may also be secondary to congestive change. If the patient has underlying malignancy, these findings may also be due to lymphangitic carcinomatosis. 3. Chronic lung disease with subpleural fibrotic changes as on prior exam. 4. Stable to slight interval increase in size of the solid right middle lobe nodule, which has been present and is largely unchanged dating back to at least 2013 consistent with a benign etiology. Electronically signed by: Mp Henry M.D. 11/04/2017 1:44 PM Dictated Date/Time: 11/04/2017 1:18 PM EKG sinus tachycardia at 122bpm, normal axis, intervals and waveforms, no evidence of acute ischemia Impression Assessment and Plan 76yo male with history of HTN, DM, HLP and ILD on 5L O2 at baseline presenting with shaking chills, leukocytosis 1. Shortness of breath - patient with shortness of breath at baseline, requiring 5L O2. He had brief worsening of SOB yesterday which has since improved to baseline. Patient also with leukocytosis/rigors raising concern for infectious process although no focal infiltrate noted on imaging. Concern for possibility of CHF in setting of pulmonary hypertension contributing to SOB and imaging findings. -Admit to medical floor with continuous pulse oximetry -Check procalcitonin, blood cultures, sputum culture -Trend leukocytosis -Will hold antibiotics for now pending results of culture data -Check 2D echocardiogram -Administer Lasix 20mg IV x additional dose now -Closely monitor I/Os -Pulmonology consultation -Continue 5L NC, target SaO2 > 88% -DuoNeb q4 hours PRN SOB 2. Rigors - patient afebrile at present, hemodynamically stable, does have leukocytosis. Concern for infectious source -Check blood cultures, urine culture, sputum culture -Continue to monitor 3. Diabetes - blood sugar elevated at 222 today. Reports being fairly well controlled prior to episode -Continue home lantus 61u qHS -Novolog sliding scale 4. Hypertension- patient presently normotensive. -Continue Ramipril -Continue to monitor 5. Hyperlipidemia - stable, chronic -Continue Lipitor 6. Carotid stenosis - asymptomatic, no bruits appreciated -Continue Plavix 7. F/E/N - Heplock, gentle diuresis as above with Lasix 20mg IV, monitor electrolytes and replete as needed, Diabetic diet as tolerated 8. Ppx - Lovenox for DVT prophylaxis, Protonix 9. Code -Full per discussion with patient 10. Dispo - admit to medical floor with continuous pulse oximetry Advanced Directives Existing Living Will: Yes Existing Power of Environmental Compliance Inspector: Yes Resuscitation Status Full VTE Prophylaxis Will order VTE Prophylaxis: Yes
--- NOTE | 2017-11-04 20:14 | Pulmonary Consultation ---
History General Date of Service: Nov 04, 2017. Stated Complaint: Hypoxia HPI Dear Leona, Thank you for your kind referral of Mr. Chen to pulmonary service. This is 76-year-old gentleman with a history of interstitial lung disease has been followed at [facility], according to the patient, he underwent pulmonary function test and followed by Dr. Pollock at that institution. The patient did not have any further workup although he has been scheduled for it next month. The patient followed by Dr. perez as an outpatient. The patient was at dinner with his family when he started having shaking chills and could not keep his O2 saturation where he was maintained on 3 L of oxygen with portable condenser. The patient presented to the ER for further management where he was found to have O2 saturation between 70-90%. He did have increased shortness of breath. No chest pain was reported no cough and no sputum production. The patient did not have any abdominal pain no epigastric pain. No nausea or vomiting and he did not have any choking sensation or aspiration event while he was eating at the dinner. No sick contact was reported as well. No increased swelling in his lower extremities and no increased shortness of breath. The patient in the ED, was found to have increased interstitial markings bilaterally and underwent a CAT scan of the chest which showed diffuse groundglass opacities as well as interstitial changes. The patient was given the diagnosis of CHF exacerbation, and he was diuresed and admitted to the hospital for further management. Historian: patient, other (Records) Review of Systems Constitutional: reports: chills Eyes: reports: no symptoms ENT: reports: no symptoms Cardiovascular: reports: no symptoms Respiratory: reports: cough, shortness of breath Gastrointestinal: reports: no symptoms Musculoskeletal: reports: no symptoms Neurologic: reports: no symptoms Hematologic / Lymphatic: no symptoms Allergic / Immunologic: no symptoms Past Medical History Past Medical History: Significant for ILD, osteoarthritis, coronary artery disease, ex-smoker. Past Medical History: arthritis, diabetes, high cholesterol Past Surgical History: cholecystectomy Family History FH: cancer FH: heart disease Hypertension Parent: Heart Disease Social History Hx Tobacco Use In Past Year?: No Smoking Status: Former Smoker Alcohol: socially Marital status: single Housing status: lives alone Occupational Status: retired Immunizations History of Influenza Vaccine: No History of Tetanus Vaccine?: Yes History of Pneumococcal: Yes History of Hepatitis B Vaccine: Unknown History of MDRO History of MDRO: No Allergies Coded Allergies: Niacinamide (Unverified Allergy, Unknown, RASH, 11/04/17) Procaine (Unverified Allergy, Unknown, RASH, 11/04/17) Pyridoxine (Unverified Allergy, Unknown, RASH, 11/04/17) Riboflavin (Unverified Allergy, Unknown, RASH, 11/04/17) Tetracycline (Unverified Allergy, Unknown, RASH, 11/04/17) Thiamine (Unverified Allergy, Unknown, RASH, 11/04/17) Current Medications Reported Home Medications Medications Dose Route/Sig Max Daily Dose Days Date Category Dose Instructions Lantus Solostar (Insulin Glargine) 100 Unit/Ml Inj 61 Units SQ QPM 11/04/17 Reported Novolog Flexpen (Insulin Aspart) 100 Units/Ml Inj 10 Units SQ QDD 11/04/17 Reported 10 UNITS IS PT BASELINE. DEPENDING WHAT HIS SUGAR IS AT THE TIME OF DINNER Novolog Flexpen (Insulin Aspart) 100 Units/Ml Inj 8 Units SQ BIDM 11/04/17 Reported TAKES WITH BREAKFAST AND LUNCH. 8 UNITS IS THE BASELINE DEPENDING WHAT HIS SUGAR LEVELS ARE. [Potassium] 99 Mg PO DAILY 09/20/16 Reported Vitamin B-12 (Cyanocobalamin) 1,000 Mcg Tab 1,000 Mcg PO DAILY 09/20/16 Reported Ramipril 2.5 Mg Cap 1 Cap PO DAILY 90 09/20/16 Reported Glucophage Er (Metformin HCl) 500 Mg Tab 500 Mg PO DAILY 09/20/16 Reported Anusol-Hc (Hydrocortisone Acetate (Rectal) 25 Mg Sup 25 Mg VT HS PRN 09/20/16 Reported Cleocin-T (Clindamycin Phosphate (Topical) 1 % Lot 1 Appln TOP PRN 30 09/20/16 Reported Lipitor (Atorvastatin Calcium) 20 Mg Tab 20 Mg PO DAILY 09/20/16 Reported Amoxil (Amoxicillin) 500 Mg Cap 4 Cap PO UD 09/20/16 Reported TAKE 1 HR PRIOR TO DENTAL VISIT Plavix (Clopidogrel Bisulfate) 75 Mg Tab 75 Mg PO DAILY 06/28/15 Reported Prilosec (Omeprazole) 20 Mg Cap 20 Mg PO DAILY 01/03/15 Reported D 1000 (Cholecalciferol) 1,000 Unit Cap 2,000 Unit PO QD 01/03/15 Reported Physical Physical Exam Vital Signs: Date Time Temp Pulse Resp B/P (MAP) Pulse Ox O2 Delivery O2 Flow Rate FiO2 11/04/17 18:33 36.6 91 20 116/73 Nasal Cannula 5.0 90 11/04/17 18:20 36.6 91 18 116/73 (87) 89 Nasal Cannula 4.5 11/04/17 17:30 94 26 124/85 84 Nasal Cannula 5.0 11/04/17 17:01 99 26 94/84 87 Nasal Cannula 5.0 11/04/17 16:30 95 34 114/63 83 Nasal Cannula 5.0 11/04/17 16:14 97 11/04/17 16:00 98 30 118/66 83 Nasal Cannula 5.0 11/04/17 15:37 103 28 83 Nasal Cannula 5.0 11/04/17 15:32 136/81 11/04/17 15:00 101 27 143/76 89 Nasal Cannula 5.0 11/04/17 14:30 100 21 112/58 88 Nasal Cannula 5.0 11/04/17 14:00 104 23 123/69 91 Oxymask 5.0 11/04/17 13:30 110 33 118/64 84 Oxymask 5.0 11/04/17 13:27 127/66 11/04/17 13:00 107 35 105/56 87 Oxymask 6.0 11/04/17 12:32 108 28 122/71 86 Nasal Cannula 6.0 11/04/17 12:10 90 Oxymask 6.0 11/04/17 12:09 90 Oxymask 6.0 11/04/17 12:07 114 11/04/17 12:03 37.6 124 30 168/80 77 Nasal Cannula 4.0 General Appearance: WD/WN, NO APPARENT DISTRESS Eyes: EOMI ENT: NORMAL EAR EXAM, NORMAL NASAL EXAM, NORMAL MOUTH EXAM, NORMAL THROAT EXAM Neck: TRACHEA MIDLINE Respiratory: other (Diffuse rhonchi.) Cardiovasular: REGULAR RATE/RHYTHM, NORMAL S1S2, NO M/G/R, NO MURMUR Abdomen: NON TENDER, NO ORGANOMEGALY Back: NORMAL INSPECTION Lower Extremities: NO EDEMA Neuro: ALERT, ORIENTED x 3, NORMAL MOTOR EXAM, NORMAL SENSATION Psychiatric: NORMAL AFFECT Diagnostics Labs Results Past 24 Hours Test 11/04/17 12:00 11/04/17 12:45 11/04/17 15:55 8/7/18 16:00 Range/Units White Blood Count 15.95 4.8-10.8 K/uL Red Blood Count 4.98 4.7-6.1 M/uL Hemoglobin 15.6 14.0-18.0 g/dL Hematocrit 47.2 42-52 % Mean Corpuscular Volume 94.8 80-100 fL Mean Corpuscular Hemoglobin 31.3 25-34 pg Mean Corpuscular Hemoglobin Concent 33.1 32-36 g/dl Platelet Count 236 130-400 K/uL Mean Platelet Volume 9.9 7.4-10.4 fL Neutrophils (%) (Auto) 82.1 % Lymphocytes (%) (Auto) 10.9 % Monocytes (%) (Auto) 5.8 % Eosinophils (%) (Auto) 0.5 % Basophils (%) (Auto) 0.3 % Neutrophils # (Auto) 13.11 1.4-6.5 K/uL Lymphocytes # (Auto) 1.74 1.2-3.4 K/uL Monocytes # (Auto) 0.92 0.11-0.59 K/uL Eosinophils # (Auto) 0.08 0-0.5 K/uL Basophils # (Auto) 0.04 0-0.2 K/uL RDW Standard Deviation 48.8 36.4-46.3 fL RDW Coefficient of Variation 14.1 11.5-14.5 % Immature Granulocyte % (Auto) 0.4 % Immature Granulocyte # (Auto) 0.06 0.00-0.02 K/uL Prothrombin Time 12.2 9.0-12.0 SECONDS Prothromb Time International Ratio 1.2 0.9-1.1 Activated Partial Thromboplast Time 28.2 21.0-31.0 SECONDS Partial Thromboplastin Ratio 1.1 Sodium Level 137 136-145 mmol/L Potassium Level 4.1 3.5-5.1 mmol/L Chloride Level 105 98-107 mmol/L Carbon Dioxide Level 23 21-32 mmol/L Anion Gap 9.0 3-11 mmol/L Blood Urea Nitrogen 33 7-18 mg/dl Creatinine 1.09 0.60-1.40 mg/dl Est Creatinine Clear Calc Drug Dose 54.8 ml/min Estimated GFR () 75.0 Estimated GFR (Non- 64.7 BUN/Creatinine Ratio 29.8 10-20 Random Glucose 259 70-99 mg/dl Calcium Level 8.8 8.5-10.1 mg/dl Total Bilirubin 1.0 0.2-1 mg/dl Aspartate Amino Transf (AST/SGOT) 20 15-37 U/L Alanine Aminotransferase (ALT/SGPT) 33 12-78 U/L Alkaline Phosphatase 89 45-117 U/L Troponin I < 0.015 0-0.045 ng/ml Pro-B-Type Natriuretic Peptide 342 0-1800 pg/ml Total Protein 7.3 6.4-8.2 gm/dl Albumin 3.4 3.4-5.0 gm/dl Globulin 3.9 2.5-4.0 gm/dl Albumin/Globulin Ratio 0.9 0.9-2 Arterial Blood pH 7.45 7.35-7.45 Arterial Blood Partial Pressure CO2 33 35-46 mmHg Arterial Blood Partial Pressure O2 53 80-95 mm/Hg Arterial Blood HCO3 23 19-24 mmol/L Arterial Blood Oxygen Saturation 87.0 90-95 % Arterial Blood Base Excess -0.2 -9-1.8 mEq/L Arterial Blood Gas Delivery 6L Armand Test POS POS Bedside Glucose 222 70-99 mg/dl Urine Color YELLOW Urine Appearance CLEAR CLEAR Urine pH 5.0 4.5-7.5 Urine Specific [place] > 1.045 1.000-1.030 Urine Protein NEG NEG Urine Glucose (UA) NEG NEG Urine Ketones NEG NEG Urine Occult Blood NEG NEG Urine Nitrite NEG NEG Urine Bilirubin NEG NEG Urine Urobilinogen NEG NEG Urine Leukocyte Esterase NEG NEG Test 11/04/17 18:32 11/04/17 20:00 Range/Units Phosphorus Level 3.1 2.5-4.9 mg/dl Magnesium Level 1.8 1.8-2.4 mg/dl Microbiology Results 11/04/17 Blood Culture, Received Pending 11/04/17 Blood Culture, Received Pending Diagnostic Radiology I have reviewed his CAT scan on this admission and compared with the one from 2014 which showed significant interstitial changes, multiple nodularity, right middle lobe nodule that has been increasing in size, multiple lymphadenopathy, I am not sure about serologic workup done on this patient in the past. He had leukocytosis was 6% bandemia. Impression Assessment and Plan 1. Although the patient has significant history of pulmonary hypertension, this could not explain increased groundglass opacity. 2. Pulmonary edema with cardiogenic versus noncardiogenic is a possibility however the patient has leukocytosis and 6% bandemia. Accompanied with chills even with the absence of fever, I would be suspicious about community-acquired pneumonia although atypical. 3. History of interstitial lung disease, workup is in progress at the [facility]. The patient had an appointment scheduled for further testing including pulmonary exercise testing and evaluation for pulmonary hypertension. 4. Given the presence of multiple nodularity in the lung and lymphadenopathy, concerns for granulomatous disease such as sarcoidosis is very high. 5. Right middle lobe nodule increasing in size which could represent granulomatous disease, cannot exclude low-grade malignancy. Plan: 1. I will add Levaquin 750 mg IV daily empirically. 2. Obtain serology including LOBO, FINANCIAL PLANNING ADVISER, DEION, CCP. 3. Agree with gentle diuresis. 4. Continue with oxygen. 5. The patient would benefit from bronchoscopy and sampling of the lymph nodes in the mediastinum. However he has been scheduled to be seen and followed by his tooth inspector at [facility]. Thank you
[2017-11-04] MEDS: LEVOFLOXACIN / D5W 750 MG in PREMIXED IN D5W 150 ML IV SCH (20:35)
[2017-11-04] MEDS: INSULIN GLARGINE SOLOSTAR 100 UNITS/ML 3 ML PEN SQ SCH (20:54)
[2017-11-04] MEDS: INSULIN ASPART 100 UNITS/ML 3 ML PEN SC SCH (20:55)
[2017-11-04] MEDS: ENOXAPARIN 40 MG/0.4 ML SYR SQ SCH (20:55)
[2017-11-04 21:42] VITALS: O2SAT 90
[2017-11-04 23:08] VITALS: BP 100/64; PULSE 89; TEMP 36.5; O2SAT 92
[2017-11-05 00:15] VITALS: O2SAT 91
[2017-11-05 06:55] VITALS: BP 109/70; PULSE 76; TEMP 36.5; O2SAT 91
[2017-11-05 07:12] LABS: BASO % 0.3 %; BASO ABS # 0.03 K/uL (0-0.2); EOS % 2.2 %; EOS ABS # 0.26 K/uL (0-0.5); HEMATOCRIT 43.9 % (42-52); HEMOGLOBIN 14.7 g/dL (14.0-18.0); IG# 0.06 K/uL (0.00-0.02); LYMPH % 19.4 %; LYMPH ABS # 2.25 K/uL (1.2-3.4); MEAN CELL VOLUME 94.8 fL (80-100); MEAN CORPUSCULAR HEMOGLOBIN 31.7 pg (25-34); MEAN CORPUSCULAR HGB CONC 33.5 g/dl (32-36); MEAN PLATELET VOLUME 9.6 fL (7.4-10.4); MONO % 11.2 %; NEUT % 66.4 %; NEUT ABS # 7.67 K/uL (1.4-6.5); PLATELET COUNT 206 K/uL (130-400); WHITE BLOOD COUNT 11.57 K/uL (4.8-10.8)
[2017-11-05 07:36] LABS: CALCIUM 8.5 mg/dl (8.5-10.1); CREATININE 0.9 mg/dl (0.60-1.40); POTASSIUM 3.5 mmol/L (3.5-5.1)
[2017-11-05] MEDS: INSULIN ASPART 100 UNITS/ML 3 ML PEN SC SCH ×4 (07:53→20:05)
[2017-11-05] MEDS: PANTOprazole SOD 40 MG TAB PO SCH (07:55)
[2017-11-05] MEDS: CLOPIDOGREL BISULFATE 75 MG TAB PO SCH (07:55)
[2017-11-05] MEDS: ATORVASTATIN 20 MG TAB PO SCH (07:55)
[2017-11-05] MEDS: CYANOCOBALAMIN 500 MCG TAB (VIT B-12) PO SCH (07:55)
[2017-11-05] MEDS: CHOLECALCIFEROL 1000 INTER.UNIT TAB PO SCH (07:55)
[2017-11-05] MEDS: LISINOPRIL 10 MG TAB PO SCH (07:56)
--- NOTE | 2017-11-05 12:03 | Clinical Documentation Query ---
CLINICAL DOCUMENTATION QUERY QUERY 1 OF 2 76 yo male admitted with SOB, shaking chills and leukocytosis. Patient meets SIRS criteria: SIRS may be indicated by 2 or more of the following; however, consider the entire clinical scenario... Temp < 96.8*F/36*C or > 100.4*F/38*C Resps > 20 breaths/min Pulse > 90 bpm PaCO2 <32 mmHg WBC > 12K or < 4K or Bands > 10% In your clinical opinion is this patient being managed for: ( ) Sepsis ( x ) Not Agree ( ) Other explanation of clinical findings (No explanation is considered a No Response) ( ) Unable to determine ( ) Need to Discuss (Phone CDS or qliq) (No discussion is considered a No Response) The medical record reflects the following clinical findings, treatment, and risk factors. Clinical Indicators: WBC 15.95, Pulse 124, Resp 30 Treatment: Levaquin IV, blood cultures, CT chest, O2, I&O, Pulmonary consult Risk Factors: Age, chronic respiratory failure, chronic lung disease QUERY 2 OF 2 Patient is on chronic home O2 at 5L. Patient's saturations upon admission were 77% requiring an oxymask. Respiration rate was 28. CXR shows developing congestive failure and/or pulmonary edema. In your clinical opinion is this patient being managed for: (x ) Acute and chronic respiratory failure with hypoxia ( ) Not Agree ( ) Other explanation of clinical findings (No explanation is considered a No Response) ( ) Unable to determine ( ) Need to Discuss (Phone CDS or qliq) (No discussion is considered a No Response) The medical record reflects the following clinical findings, treatment, and risk factors. Clinical Indicators: As above Treatment: O2 via oxymask, ABGs, chest CT, Pulmonary consult Risk Factors: Age, chronic O2, chronic lung disease Please clarify and document your clinical opinion in the progress notes and discharge summary. Terms such as "probable", "suspected", "likely", "questionable", "possible", or "still to be ruled out" are acceptable. IF IN AGREEMENT, YOU MUST DOCUMENT ABOVE DIAGNOSTIC STATEMENT IN DAILY PROGRESS NOTES AND DISCHARGE SUMMARY. This document is not part of the patient's record. Thank You, Rita Thompson RN, MSN [id number]
[2017-11-05 15:58] VITALS: O2SAT 91
--- NOTE | 2017-11-05 16:14 | Progress Note ---
Subjective Date of Service: Nov 05, 2017. Subjective Pt evaluation today including: conversation w/ patient, physical exam, lab review, conversation w/ computing consultant, review of inpatient medication list Pain: no pain PO Intake: adequate Voiding: no voiding problems patient feels better but not at his baseline asking about going home, asked him to ambulate around the room saturations dropped to 81% just walking [address] Jackson, appreciate his recommendations patient feels like urinated more with the Lasix IV, says he does not normally take Lasix says that he was not gaining weight to his knowledge and did not notice leg swelling Problem List Medical Problems: (1) Encounter for management of vacuum-assisted closure (VAC) of wound Status: Acute (2) GI bleed Status: Acute (3) Hypoxia Status: Chronic (4) Interstitial lung disease Status: Chronic (5) Pulmonary edema Status: Acute Review of Systems Respiratory: + cough, + dyspnea on exertion All Other Systems: Reviewed and Negative Medications Current Inpatient Medications Medications (Trade) Dose Ordered Sig/Allison Route Start Time Stop Time Status Last Admin Dose Admin Ioversol (Optiray 320) 100 ml UD PRN IV 11/04/17 12:15 11/08/17 12:14 Enoxaparin Sodium (Lovenox Inj) 40 mg QPM SQ 11/04/17 21:00 12/04/17 20:59 11/04/17 20:55 40 MG Acetaminophen (Tylenol Tab) 650 mg Q4H PRN PO 11/04/17 17:00 12/04/17 16:59 Ondansetron HCl (Zofran Inj) 4 mg Q6H PRN IV 11/04/17 17:00 12/04/17 16:59 Glucose (Glucose 40% Gel) 15-30 GRAMS 15 GRAMS... UD PRN PO 11/04/17 17:00 12/04/17 16:59 Glucose (Glucose Chew Tab) 4-8 Tablets 4 Tabl... UD PRN PO 11/04/17 17:00 12/04/17 16:59 Dextrose (Dextrose 50% 50ML Syringe) 25-50ML 25ML FOR ... UD PRN IV 11/04/17 17:00 12/04/17 16:59 Glucagon (Glucagon Inj) 1 mg UD PRN SQ 11/04/17 17:00 12/04/17 16:59 Carbohydrates (Carbohydrates For Hypoglycemia) 15-30 GRAMS 15 grams if BSG 54-69... UD PRN PO 11/04/17 17:00 12/04/17 16:59 Atorvastatin Calcium (Lipitor Tab) 20 mg DAILY PO 11/05/17 09:00 12/05/17 08:59 11/05/17 07:55 20 MG Clopidogrel Bisulfate (plAVix TAB) 75 mg DAILY PO 11/05/17 09:00 12/05/17 08:59 11/05/17 07:55 75 MG Cyanocobalamin (Vitamin B-12 Tab) 1,000 mcg DAILY PO 11/05/17 09:00 12/05/17 08:59 11/05/17 07:55 1,000 MCG Insulin Glargine (Lantus Solostar Pen) 61 units QPM SQ 11/04/17 21:00 12/04/17 20:59 11/04/17 20:54 61 UNITS Cholecalciferol (Vitamin D Tab) 2,000 inter.unit DAILY PO 11/05/17 09:00 12/05/17 08:59 11/05/17 07:55 2,000 INTER.UNIT Pantoprazole Sodium (Protonix Tab) 40 mg DAILY PO 11/05/17 09:00 12/05/17 08:59 11/05/17 07:55 40 MG Lisinopril (Zestril Tab) 10 mg DAILY PO 11/05/17 09:00 12/05/17 08:59 11/05/17 07:56 10 MG Insulin Aspart (novoLOG ASPART) SLIDING SCALE G... ACHS SC 11/04/17 21:00 12/04/17 20:59 11/05/17 11:52 6 UNITS Albuterol/ Ipratropium (Duoneb) 3 ml Q4R PRN INH 11/04/17 17:00 12/04/17 16:59 Levofloxacin 750 mg/Prmx 150 ml @ 100 mls/hr Q24H IV 11/04/17 20:30 11/11/17 20:29 11/04/17 20:35 100 MLS/HR Objective Vital Signs Date Time Temp Pulse Resp B/P (MAP) Pulse Ox O2 Delivery O2 Flow Rate FiO2 11/05/17 15:58 91 Nasal Cannula 5.0 90 8/8/18 07:40 Nasal Cannula 5.0 11/05/17 06:55 36.5 76 18 109/70 (83) 91 Nasal Cannula 5.0 11/05/17 00:15 91 Nasal Cannula 5.0 11/04/17 23:08 36.5 89 16 100/64 (76) 92 Nasal Cannula 5.0 11/04/17 21:42 90 Nasal Cannula 5.0 11/04/17 18:33 36.6 91 20 116/73 Nasal Cannula 5.0 90 11/04/17 18:20 36.6 91 18 116/73 (87) 89 Nasal Cannula 4.5 11/04/17 17:30 94 26 124/85 84 Nasal Cannula 5.0 11/04/17 17:01 99 26 94/84 87 Nasal Cannula 5.0 11/04/17 16:30 95 34 114/63 83 Nasal Cannula 5.0 11/04/17 16:14 97 Physical Exam General Appearance: WD/WN, no apparent distress Eyes: normal inspection, EOMI, sclerae normal ENT: normal ENT inspection, hearing grossly normal, pharynx normal Neck: supple, no adenopathy, no JVD, trachea midline Respiratory/Chest: chest non-tender, lungs clear, no respiratory distress, no accessory muscle use, + decreased breath sounds (bases) Cardiovascular: regular rate, rhythm, no edema, no gallop, no JVD, no murmur Abdomen: normal bowel sounds, non tender, soft, no organomegaly Extremities: normal range of motion, non-tender, normal inspection, no pedal edema, no calf tenderness, pelvis stable Neurologic/Psychiatric: 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 II-XII nml as tested, no motor/sensory deficits, alert, normal mood/affect, oriented x 3 Skin: normal color, warm/dry, no rash Laboratory Results Last 24 Hours Test 11/04/17 18:32 11/04/17 20:05 11/05/17 06:35 11/05/17 07:32 Phosphorus Level 3.1 mg/dl Magnesium Level 1.8 mg/dl Procalcitonin 0.12 ng/ml Cyclic Citrullinated Peptide IgG Ab < 0.40 U/mL Bedside Glucose 159 mg/dl 89 mg/dl White Blood Count 11.57 K/uL Red Blood Count 4.63 M/uL Hemoglobin 14.7 g/dL Hematocrit 43.9 % Mean Corpuscular Volume 94.8 fL Mean Corpuscular Hemoglobin 31.7 pg Mean Corpuscular Hemoglobin Concent 33.5 g/dl Platelet Count 206 K/uL Mean Platelet Volume 9.6 fL Neutrophils (%) (Auto) 66.4 % Lymphocytes (%) (Auto) 19.4 % Monocytes (%) (Auto) 11.2 % Eosinophils (%) (Auto) 2.2 % Basophils (%) (Auto) 0.3 % Neutrophils # (Auto) 7.67 K/uL Lymphocytes # (Auto) 2.25 K/uL Monocytes # (Auto) 1.30 K/uL Eosinophils # (Auto) 0.26 K/uL Basophils # (Auto) 0.03 K/uL RDW Standard Deviation 48.0 fL RDW Coefficient of Variation 14.0 % Immature Granulocyte % (Auto) 0.5 % Immature Granulocyte # (Auto) 0.06 K/uL Sodium Level 137 mmol/L Potassium Level 3.5 mmol/L Chloride Level 105 mmol/L Carbon Dioxide Level 26 mmol/L Anion Gap 6.0 mmol/L Blood Urea Nitrogen 30 mg/dl Creatinine 0.90 mg/dl Est Creatinine Clear Calc Drug Dose 66.4 ml/min Estimated GFR () 94.5 Estimated GFR (Non- 81.5 BUN/Creatinine Ratio 33.0 Random Glucose 85 mg/dl Calcium Level 8.5 mg/dl Test 11/05/17 11:28 Bedside Glucose 168 mg/dl Assessment and Plan 76yo male with history of HTN, DM, HLP and ILD on 5L O2 at baseline presenting with shaking chills, leukocytosis - Acute and chronic hypoxic respiratory failure still with increased work of breathing at rest and quickly desaturates just walking around the room he is maintaining 88-90% on 5L at rest which he wears chronically however, saturations drop to 80% walking patient wishes to go home, not quite ready, will reassess tomorrow - Interstitial lung disease still being worked up at [facility], has an appointment later this month planning on right heart catheterization Dr. Jackson recommends bronchoscopy and sampling of nodes sent serology markers continue nebulizers, Levaquin for infectious etiology of flare - Pulmonary edema: improved, no rales admits that he diuresed more follow up on echo results - Diabetes - monitor for hypoglycemia -Continue home lantus 61u qHS -Novolog sliding scale 4. Hypertension- patient presently normotensive. -Continue Ramipril -Continue to monitor 5. Hyperlipidemia - stable, chronic -Continue Lipitor 6. Carotid stenosis - asymptomatic, no bruits appreciated -Continue Plavix 7. F/E/N - Heplock, gentle diuresis as above with Lasix 20mg IV, monitor electrolytes and replete as needed, Diabetic diet as tolerated 8. Ppx - Lovenox for DVT prophylaxis, Protonix 9. Code -Full per discussion with patient
--- NOTE | 2017-11-05 18:32 | Pulmonology Progress Note ---
Pulmonary Progress Note Date of Service Nov 05, 2017. Attending Dr. Jackson Subjective The patient is feeling better today, his shortness of breath is less, but he desaturated with ambulation. The patient uses 2 L/3 L of oxygen at rest and ambulation respectively. He denies any cough no sputum production and no chills occurred. Objective Physical exam on 11/05/2017 showed elderly gentleman, not in any apparent distress , he speaks in full sentences, bibasilar crackles were audible, S1-S2 regular rate and rhythm, abdomen is benign, no edema. His leukocytosis has improved. And his CCP was negative. Assessment & Plan 1. Interstitial lung disease with lymphadenopathy, highly suspicious for sarcoidosis. Other entities cannot be totally excluded. 2. Pulmonary hypertension. 3. Atypical community-acquired pneumonia, responding to Levaquin. 4. Chronic hypoxic respiratory failure on home O2. 5. Possible superimposed pulmonary vascular congestion and mild case of CHF. Plan: 1. Continue with Levaquin for total of 7 days. May change to p.o. 2. Continue with oxygen. 3. Follow [employer] and DEION levels. 4. The patient would benefit from bronchoscopy and sampling of the lymph nodes to rule out sarcoidosis, however the patient has been scheduled at [facility] for a full workup in that regard and he has been followed with them as well. 5. Hopefully discharge in the morning. Patient does have oxygen at home and he does have a nebulizer machine as well as bronchodilators. Thank you. Data Medications: Current Inpatient Medications Medications (Trade) Dose Ordered Sig/Allison Route Start Time Stop Time Status Last Admin Dose Admin Ioversol (Optiray 320) 100 ml UD PRN IV 11/04/17 12:15 11/08/17 12:14 Enoxaparin Sodium (Lovenox Inj) 40 mg QPM SQ 11/04/17 21:00 12/04/17 20:59 11/04/17 20:55 40 MG Acetaminophen (Tylenol Tab) 650 mg Q4H PRN PO 11/04/17 17:00 12/04/17 16:59 Ondansetron HCl (Zofran Inj) 4 mg Q6H PRN IV 11/04/17 17:00 12/04/17 16:59 Glucose (Glucose 40% Gel) 15-30 GRAMS 15 GRAMS... UD PRN PO 11/04/17 17:00 12/04/17 16:59 Glucose (Glucose Chew Tab) 4-8 Tablets 4 Tabl... UD PRN PO 11/04/17 17:00 12/04/17 16:59 Dextrose (Dextrose 50% 50ML Syringe) 25-50ML 25ML FOR ... UD PRN IV 11/04/17 17:00 12/04/17 16:59 Glucagon (Glucagon Inj) 1 mg UD PRN SQ 11/04/17 17:00 12/04/17 16:59 Carbohydrates (Carbohydrates For Hypoglycemia) 15-30 GRAMS 15 grams if BSG 54-69... UD PRN PO 11/04/17 17:00 12/04/17 16:59 Atorvastatin Calcium (Lipitor Tab) 20 mg DAILY PO 11/05/17 09:00 12/05/17 08:59 11/05/17 07:55 20 MG Clopidogrel Bisulfate (plAVix TAB) 75 mg DAILY PO 11/05/17 09:00 12/05/17 08:59 11/05/17 07:55 75 MG Cyanocobalamin (Vitamin B-12 Tab) 1,000 mcg DAILY PO 11/05/17 09:00 12/05/17 08:59 11/05/17 07:55 1,000 MCG Insulin Glargine (Lantus Solostar Pen) 61 units QPM SQ 11/04/17 21:00 12/04/17 20:59 11/04/17 20:54 61 UNITS Cholecalciferol (Vitamin D Tab) 2,000 inter.unit DAILY PO 11/05/17 09:00 12/05/17 08:59 11/05/17 07:55 2,000 INTER.UNIT Pantoprazole Sodium (Protonix Tab) 40 mg DAILY PO 11/05/17 09:00 12/05/17 08:59 11/05/17 07:55 40 MG Lisinopril (Zestril Tab) 10 mg DAILY PO 11/05/17 09:00 12/05/17 08:59 11/05/17 07:56 10 MG Insulin Aspart (novoLOG ASPART) SLIDING SCALE G... ACHS SC 11/04/17 21:00 12/04/17 20:59 11/05/17 17:08 8 UNITS Albuterol/ Ipratropium (Duoneb) 3 ml Q4R PRN INH 11/04/17 17:00 12/04/17 16:59 Levofloxacin 750 mg/Prmx 150 ml @ 100 mls/hr Q24H IV 11/04/17 20:30 11/11/17 20:29 11/04/17 20:35 100 MLS/HR I & O: 24-Hour Column 11/06/17 08:00 Intake Total 895 ml Output Total 825 ml Balance 70 ml Vital Signs: Date Time Temp Pulse Resp B/P (MAP) Pulse Ox O2 Delivery O2 Flow Rate FiO2 11/05/17 15:58 91 Nasal Cannula 5.0 90 11/05/17 07:40 Nasal Cannula 5.0 11/05/17 06:55 36.5 76 18 109/70 (83) 91 Nasal Cannula 5.0 11/05/17 00:15 91 Nasal Cannula 5.0 11/04/17 23:08 36.5 89 16 100/64 (76) 92 Nasal Cannula 5.0 11/04/17 21:42 90 Nasal Cannula 5.0 11/04/17 18:33 36.6 91 20 116/73 Nasal Cannula 5.0 90 Laboratory Results: Last 24 Hours Test 11/04/17 18:32 11/04/17 20:05 11/05/17 06:35 11/05/17 07:32 Phosphorus Level 3.1 mg/dl Magnesium Level 1.8 mg/dl Procalcitonin 0.12 ng/ml Cyclic Citrullinated Peptide IgG Ab < 0.40 U/mL Bedside Glucose 159 mg/dl 89 mg/dl White Blood Count 11.57 K/uL Red Blood Count 4.63 M/uL Hemoglobin 14.7 g/dL Hematocrit 43.9 % Mean Corpuscular Volume 94.8 fL Mean Corpuscular Hemoglobin 31.7 pg Mean Corpuscular Hemoglobin Concent 33.5 g/dl Platelet Count 206 K/uL Mean Platelet Volume 9.6 fL Neutrophils (%) (Auto) 66.4 % Lymphocytes (%) (Auto) 19.4 % Monocytes (%) (Auto) 11.2 % Eosinophils (%) (Auto) 2.2 % Basophils (%) (Auto) 0.3 % Neutrophils # (Auto) 7.67 K/uL Lymphocytes # (Auto) 2.25 K/uL Monocytes # (Auto) 1.30 K/uL Eosinophils # (Auto) 0.26 K/uL Basophils # (Auto) 0.03 K/uL RDW Standard Deviation 48.0 fL RDW Coefficient of Variation 14.0 % Immature Granulocyte % (Auto) 0.5 % Immature Granulocyte # (Auto) 0.06 K/uL Sodium Level 137 mmol/L Potassium Level 3.5 mmol/L Chloride Level 105 mmol/L Carbon Dioxide Level 26 mmol/L Anion Gap 6.0 mmol/L Blood Urea Nitrogen 30 mg/dl Creatinine 0.90 mg/dl Est Creatinine Clear Calc Drug Dose 66.4 ml/min Estimated GFR () 94.5 Estimated GFR (Non- 81.5 BUN/Creatinine Ratio 33.0 Random Glucose 85 mg/dl Calcium Level 8.5 mg/dl Test 11/05/17 11:28 11/05/17 16:06 Bedside Glucose 168 mg/dl 227 mg/dl
--- NOTE | 2017-11-05 18:48 | ECHOCARDIOGRAM REPORT ---
*NOTICE TO RECEIVING [employer] This information is strictly Confidential and protected under [place] law. [place] law prohibits you from making any further disclosure of this information unless further disclosure is expressly permitted by the written consent of the person to whom it pertains or is authorized by law. A general authorization for the release of medical or other information is not sufficient for this purpose. Hospital accepts no responsibility if the information is made available to any other person, INCLUDING THE PATIENT. Interpretation Summary * Name: ALAYNA HADDAD Study Date: 11/05/2017 06:48 AM BP: 109/70 mmHg * Patient Location: .[id number]\[id number]\1 HR: 78 * : 1940 (M/d/yyyy) Gender: Male Height: 64 in * Age: 76 yrs Ethnicity: [place] Weight: 186 lb * Ordering Physician: Leona Amaya * Referring Physician: Self, Referred * Performed By: Leona Dawson RDCS * * Reason For Study: CHF * BSA: 1.9 m2 * -- Conclusions -- * 1. Normal left ventricular size and systolic function. EF 55-60%. No regional wall motion abnormalities. Mild left ventricular hypertrophy. Type 1 diastolic dysfunction. * 2. Aortic valve sclerosis mild, without significant aortic valvular stenosis. * 3. Mild pulmonary hypertension suggested. Estimated RVSP 46mmHg. * 4. Technically difficult study, enhanced with IV Definity. * 5. Compared to prior study on 01/14/2011, RVSP is similar. Procedure Details * A contrast injection of Definity was performed to improve assessment of LV function. * Contrast was injected into an intravenous site in the left arm. * One vial of Definity ultrasound contrast was diluted in normal saline to a total volume of 10 ml. A total of '2' ml of solution was administered during imaging. * Lot # [id number] of Definity utilized for procedure. * Expiration date OCT 16. * The attending nurse who injected the contrast agent was LINCOLN PADILLA. Left Ventricle * Normal left ventricular size and systolic function. EF 55-60%. No regional wall motion abnormalities. Mild left ventricular hypertrophy. Type 1 diastolic dysfunction. * Septal flattening during diastole may suggest right ventricular volume overload. Right Ventricle * The right ventricle is normal in size and function. Atria * The left atrial size is normal. * Right atrial size is normal. * There is no evidence of atrial septal defect, but resolution does not allow assessment for a patent foramen ovale. Mitral Valve * The mitral valve is grossly normal. * There is no mitral valve stenosis. * There is trace mitral regurgitation. Tricuspid Valve * The tricuspid valve is not well visualized, but is grossly normal. * There is no tricuspid stenosis. * There is mild tricuspid regurgitation. Aortic Valve * Aortic valve sclerosis mild, without significant aortic valvular stenosis. * No aortic regurgitation is present. Pulmonic Valve * The pulmonary valve is inadequately visualized, but the Doppler data is adequate for interpretation. * There is no pulmonic valvular stenosis. * Mild to moderate pulmonic valvular regurgitation. Great Vessels * The aortic root is normal size. Pericardium/Pleural * There is no pericardial effusion. Great Vessels * Normal inferior vena cava size and collapsability with sniff indicates a normal right atrial pressure of 3 mmHg MMode 2D Measurements and Calculations IVSd 1.2 cm IVSs 1.9 cm LVIDd 3.6 cm LVIDs 2.7 cm LVPWd 1.1 cm LVPWs 1.7 cm IVS/LVPW 1.1 FS 25.1 % EDV(Teich) 53.7 ml ESV(Teich) 26.6 ml EF(Teich) 50.6 % EDV(cubed) 45.9 ml ESV(cubed) 19.3 ml EF(cubed) 58.0 % % IVS thick 59.0 % % LVPW thick 64.2 % LV mass(C)d 126.5 grams LV mass(C)dI 66.7 grams/m\S\2 LV mass(C)s 192.4 grams LV mass(C)sI 101.4 grams/m\S\2 SV(Teich) 27.2 ml SI(Teich) 14.3 ml/m\S\2 SV(cubed) 26.6 ml SI(cubed) 14.0 ml/m\S\2 Ao root diam 3.5 cm Ao root area 9.8 cm\S\2 LA dimension 3.4 cm LA/Ao 0.95 LVAd ap4 29.3 cm\S\2 LVLd ap4 8.5 cm EDV(MOD-sp4) 81.7 ml EDV(sp4-el) 85.7 ml LVAs ap4 16.5 cm\S\2 LVLs ap4 7.3 cm ESV(MOD-sp4) 31.2 ml ESV(sp4-el) 31.7 ml EF(MOD-sp4) 61.8 % EF(sp4-el) 63.0 % SV(MOD-sp4) 50.5 ml SI(MOD-sp4) 26.6 ml/m\S\2 SV(sp4-el) 54.0 ml SI(sp4-el) 28.5 ml/m\S\2 Doppler Measurements and Calculations MV E max isaac 65.0 cm/sec MV A max isaac 87.8 cm/sec MV E/A 0.74 MV dec time 0.25 sec Ao V2 max 139.9 cm/sec Ao max PG 7.8 mmHg Ao max PG (full) 3.7 mmHg LV V1 max PG 4.1 mmHg LV V1 max 101.4 cm/sec TR max isaac 325.8 cm/sec RVSP(TR) 45.7 mmHg RAP systole 3.0 mmHg
[2017-11-05] MEDS: LEVOFLOXACIN / D5W 750 MG in PREMIXED IN D5W 150 ML IV SCH (19:51)
[2017-11-05] MEDS: ENOXAPARIN 40 MG/0.4 ML SYR SQ SCH (19:52)
[2017-11-05] MEDS: INSULIN GLARGINE SOLOSTAR 100 UNITS/ML 3 ML PEN SQ SCH (20:06)
[2017-11-05 23:33] VITALS: BP 102/60; PULSE 88; TEMP 37.5; O2SAT 94
[2017-11-06] MEDS: CHOLECALCIFEROL 1000 INTER.UNIT TAB PO SCH (07:37)
[2017-11-06] MEDS: CLOPIDOGREL BISULFATE 75 MG TAB PO SCH (07:37)
[2017-11-06] MEDS: PANTOprazole SOD 40 MG TAB PO SCH (07:37)
[2017-11-06] MEDS: LISINOPRIL 10 MG TAB PO SCH (07:37)
[2017-11-06] MEDS: ATORVASTATIN 20 MG TAB PO SCH (07:37)
[2017-11-06] MEDS: CYANOCOBALAMIN 500 MCG TAB (VIT B-12) PO SCH (07:37)
[2017-11-06 07:41] VITALS: BP 115/73; PULSE 71; TEMP 36.4; O2SAT 93
[2017-11-06 07:42] LABS: CALCIUM 8.2 mg/dl (8.5-10.1); CREATININE 0.79 mg/dl (0.60-1.40); POTASSIUM 3.6 mmol/L (3.5-5.1)
[2017-11-06] MEDS: INSULIN ASPART 100 UNITS/ML 3 ML PEN SC SCH ×2 (08:03→12:01)
--- NOTE | 2017-11-06 11:20 | Pulmonology Progress Note ---
Pulmonary Progress Note Date of Service Nov 06, 2017. Attending Dr. Jackson Subjective The patient is clinically feeling better, he denies any shortness of breath in the morning, no chills reported, no fever. Objective Physical exam on 11/05/2017 showed elderly gentleman, not in any apparent distress , he speaks in full sentences, bibasilar crackles were audible, S1-S2 regular rate and rhythm, abdomen is benign, no edema. His leukocytosis has improved. And his CCP was negative. Physical exam on 11/06/2017 showed stable vital signs, O2 sat 91% on 3 L of oxygen which is his baseline, S1-S2 regular rate and rhythm, bilateral Velcro type crackles mainly at the bases up to the mid nathan, trace edema in the periphery. Abdomen is benign. Serology still pending. Assessment & Plan 1. Interstitial lung disease with lymphadenopathy, highly suspicious for sarcoidosis. 2. Pulmonary hypertension. 3. Atypical community-acquired pneumonia, responding to Levaquin. 4. Chronic hypoxic respiratory failure on home O2. 5. Possible superimposed pulmonary vascular congestion and mild case of CHF. Plan: 1. Continue with Levaquin for total of 7 days. Finishing on 11/11/2017. 2. Continue with oxygen. Keep O2 sat above than 88%. 3. Follow [employer] and DEION levels. 4. Follow-up at [facility] with Dr. Pollock and pulmonary for ILD and pulmonary hypertension. 5. PA catheter and bronchoscopy is recommended if the patient is willing to pursue a definitive diagnosis. 6. Discharge patient home. Thank you. Will follow as needed. Data Medications: Current Inpatient Medications Medications (Trade) Dose Ordered Sig/[facility] Route Start Time Stop Time Status Last Admin Dose Admin Ioversol (Optiray 320) 100 ml UD PRN IV 11/04/17 12:15 11/08/17 12:14 Enoxaparin Sodium (Lovenox Inj) 40 mg QPM SQ 11/04/17 21:00 12/04/17 20:59 11/05/17 19:52 40 MG Acetaminophen (Tylenol Tab) 650 mg Q4H PRN PO 11/04/17 17:00 12/04/17 16:59 Ondansetron HCl (Zofran Inj) 4 mg Q6H PRN IV 11/04/17 17:00 12/04/17 16:59 Glucose (Glucose 40% Gel) 15-30 GRAMS 15 GRAMS... UD PRN PO 11/04/17 17:00 12/04/17 16:59 Glucose (Glucose Chew Tab) 4-8 Tablets 4 Tabl... UD PRN PO 11/04/17 17:00 12/04/17 16:59 Dextrose (Dextrose 50% 50ML Syringe) 25-50ML 25ML FOR ... UD PRN IV 11/04/17 17:00 12/04/17 16:59 Glucagon (Glucagon Inj) 1 mg UD PRN SQ 11/04/17 17:00 12/04/17 16:59 Carbohydrates (Carbohydrates For Hypoglycemia) 15-30 GRAMS 15 grams if BSG 54-69... UD PRN PO 11/04/17 17:00 12/04/17 16:59 Atorvastatin Calcium (Lipitor Tab) 20 mg DAILY PO 11/05/17 09:00 12/05/17 08:59 11/06/17 07:37 20 MG Clopidogrel Bisulfate (plAVix TAB) 75 mg DAILY PO 11/05/17 09:00 12/05/17 08:59 11/06/17 07:37 75 MG Cyanocobalamin (Vitamin B-12 Tab) 1,000 mcg DAILY PO 11/05/17 09:00 12/05/17 08:59 11/06/17 07:37 1,000 MCG Insulin Glargine (Lantus Solostar Pen) 61 units QPM SQ 11/04/17 21:00 12/04/17 20:59 11/05/17 20:06 61 UNITS Cholecalciferol (Vitamin D Tab) 2,000 inter.unit DAILY PO 11/05/17 09:00 12/05/17 08:59 11/06/17 07:37 2,000 INTER.UNIT Pantoprazole Sodium (Protonix Tab) 40 mg DAILY PO 11/05/17 09:00 12/05/17 08:59 11/06/17 07:37 40 MG Lisinopril (Zestril Tab) 10 mg DAILY PO 11/05/17 09:00 12/05/17 08:59 11/06/17 07:37 10 MG Insulin Aspart (novoLOG ASPART) SLIDING SCALE G... ACHS SC 11/04/17 21:00 12/04/17 20:59 11/06/17 08:03 4 UNITS Albuterol/ Ipratropium (Duoneb) 3 ml Q4R PRN INH 11/04/17 17:00 12/04/17 16:59 Levofloxacin 750 mg/Prmx 150 ml @ 100 mls/hr Q24H IV 11/04/17 20:30 11/11/17 20:29 11/05/17 19:51 100 MLS/HR Vital Signs: Date Time Temp Pulse Resp B/P (MAP) Pulse Ox O2 Delivery O2 Flow Rate FiO2 11/06/17 08:00 Nasal Cannula 5.0 11/06/17 07:41 36.4 71 18 115/73 (87) 93 Nasal Cannula 5.0 11/06/17 00:40 Nasal Cannula 5.0 11/05/17 23:33 37.5 88 20 102/60 (74) 94 5.0 11/05/17 15:58 91 Nasal Cannula 5.0 90 Laboratory Results: Last 24 Hours Test 11/05/17 11:28 11/05/17 16:06 11/05/17 19:12 11/06/17 07:00 Bedside Glucose 168 mg/dl 227 mg/dl 205 mg/dl Sodium Level 136 mmol/L Potassium Level 3.6 mmol/L Chloride Level 106 mmol/L Carbon Dioxide Level 26 mmol/L Anion Gap 4.0 mmol/L Blood Urea Nitrogen 25 mg/dl Creatinine 0.79 mg/dl Est Creatinine Clear Calc Drug Dose 75.6 ml/min Estimated GFR () 99.7 Estimated GFR (Non- 86.0 BUN/Creatinine Ratio 31.3 Random Glucose 86 mg/dl Calcium Level 8.2 mg/dl Test 11/06/17 07:10 Bedside Glucose 93 mg/dl
[2017-11-06] MEDS ORDERED: INSDGIPEN SQ (11:43)
[2017-11-06] MEDS ORDERED: LVQ750 PO (11:43)
--- NOTE | 2017-11-06 12:23 | Discharge Instructions ---
Discharge Instructions Date of Service Nov 06, 2017. Admission Reason for Admission: Hypoxia Discharge Discharge Diagnosis / Problem: Acute and chronic hypoxic respiratory failure, atypical pneumonia Discharge Goals Goal(s): Improve function, Improve disease control, Diagnostic testing (heart cath at [facility] on 11/19) Activity Recommendations Activity Limitations: resume your previous activity . Instructions / Follow-Up Instructions / Follow-Up Medications: - LEVAQUIN: take 750mg daily x 5 more days to treat atypical pneumonia Acute and chronic hypoxic respiratory failure, atypical pneumonia, interstitial lung disease improved with Levaquin, complete 5 more days for 7 days total follow up with [facility] as planned keep oxygen saturations above 88% Diabetes, hypoglycemic episodes in the morning as we discussed, try lowering dose of Lantus to 55 units in the evening call and discuss with endocrinology FOLLOW UP - Dr. Yeboah in one week for hospital follow up, call for appointment - [facility] on 11/19 Current Hospital Diet Patient's current hospital diet: Diabetes Type 2 Diet Discharge Diet Recommended Diet: Diabetes Type 2 Diet Pending Studies Studies pending at discharge: yes List of pending studies: serological studies, DEION, SENIOR DATA DEVELOPER and LOBO inhibitor level, Dr. Yeboah will get results Laboratory Results Hemoglobin A1c Test 10/28/17 10:42 Range/Units Estimated Average Glucose 180 mg/dl Hemoglobin A1c 7.9 H 4.5-5.6 % Medical Emergencies . Who to Call and When: Medical Emergencies: If at any time you feel your situation is an emergency, please call 911 immediately. . Non-Emergent Contact Non-Emergency issues call your: Primary Care Provider Call Non-Emergent contact if: you have any medication questions . . "Provider Documentation" section prepared by Connor Rivera. . [place] Drug Monitoring Program Search Results: no issues identified
[2017-11-06 14:08] VITALS: BP 115/73; PULSE 71; TEMP 36.4; O2SAT 93
[2017-11-06 19:25] LABS: ANA SCREEN TC 249X NEGATIVE (NEGATIVE)
[2017-11-06] MEDS ORDERED: LEVOFLOXACIN 750 MG TAB PO SCH (20:00)
--- NOTE | 2017-11-08 08:33 | Discharge Summary ---
Discharge Summary Date of Service Nov 06, 2017. Discharge Summary Admission Date: Nov 04, 2017 at 17:07 Discharge Date: Nov 06, 2017 Discharge Disposition: Home Principal Diagnosis: Atypical pneumonia Problems/Secondary Diagnoses: Acute exacerbation of interstitial lung disease Acute hypoxic respiratory failure Chronic hypoxic respiratory failure DM, insulin dependent Immunizations: Have You Had Influenza Vaccine: No History of Tetanus Vaccine?: Yes History of Pneumococcal: Yes History of Hepatitis B Vaccine: Unknown Procedures: none Consultations: Pulmonology Medication Reconciliation New Medications: Levofloxacin (Levofloxacin) 750 Mg Tab 1 TAB PO DAILY for 5 Days, #5 TABS 0 Refills Changed Medications: Insulin Glargine (Lantus Solostar) 100 Unit/Ml Inj 55 UNITS SQ QPM, #1 BOX 1 Refill (Changed from: 61 UNITS; Refills: ) Continued Medications: Amoxicillin (Amoxil) 500 Mg Cap 4 CAP PO UD, #21 CAP TAKE 1 HR PRIOR TO DENTAL VISIT Atorvastatin (Lipitor) 20 Mg Tab 20 MG PO DAILY, TAB Cholecalciferol (D 1000) 1,000 Unit Cap 2000 UNIT PO QD Clindamycin Phosphate (Topical (Cleocin-T) 1 % Lot 1 APPLN TOP PRN for 30 Days, #60 ML 2 Refills Clopidogrel (Plavix) 75 Mg Tab 75 MG PO DAILY, TAB Cyanocobalamin (Vitamin B-12) 1,000 Mcg Tab 1000 MCG PO DAILY, TAB Hydrocortisone Acetate (Rectal (Anusol-Hc) 25 Mg Sup 25 MG NE HS PRN for Hemorrhoids, #7 SUP Insulin Aspart (Novolog Flexpen) 100 Units/Ml Inj 8 UNITS SQ BIDM TAKES WITH BREAKFAST AND LUNCH. 8 UNITS IS THE BASELINE DEPENDING WHAT HIS SUGAR LEVELS ARE. Insulin Aspart (Novolog Flexpen) 100 Units/Ml Inj 10 UNITS SQ QDD 10 UNITS IS PT BASELINE. DEPENDING WHAT HIS SUGAR IS AT THE TIME OF DINNER Metformin Hcl Er (Glucophage Er) 500 Mg Tab 500 MG PO DAILY, TAB Omeprazole (Prilosec) 20 Mg Cap 20 MG PO DAILY, CAP Ramipril (Ramipril) 2.5 Mg Cap 1 CAP PO DAILY for 90 Days, #90 CAP 3 Refills [Potassium] () 99 MG PO DAILY Discharge Exam Patient feeling much better on the day of discharge, breathing easier, ambulating without desaturating like the day before. Discussed plan with patient, to complete course of Levaquin, follow up closely with pulmonology at [facility] as planned. Discussed with shannan Kenny for discharge. Review of Systems: Constitutional: No fever, No chills, No sweats, No weight loss, No weakness , No fatigue, No problem reported Eyes: No worsening of vision, No eye pain, No redness, No discharge, No diplopia, No problem reported ENT: No hearing loss, No unusual epistaxis, No nasal symptoms, No sore throat, No tinnitus, No dental problems, No trouble swallowing, No problem reported Respiratory: + dyspnea on exertion, + dyspnea at rest, No cough, No sputum, No wheezing, No shortness of breath, No hemoptysis, No problem reported Cardiovascular: No chest pain, No orthopnea, No PND, No edema, No claudication, No palpitations, No problem reported Abdomen: No pain, No nausea, No vomiting, No diarrhea, No constipation, No GI bleeding, No problem reported Musculoskeletal: No joint pain, No muscle pain, No swelling, No calf pain, No problem reported Genitourinary - Male: No hematuria, No dysuria, No urinary frequency, No urinary urgency Neurologic: No memory loss, No paralysis, No weakness, No numbness/tingling , No vertigo, No balance problems, No problem reported Psychiatric: No depression symptoms, No anhedonism, No anxiety, No insomnia , No substance abuse, No problem reported Endocrine: No fatigue, No excessive thirst, No excessive urination, No problem reported Hematologic / Lymphatic: No abnormal bleeding/bruising, No clotting problems , No swollen lymph nodes, No night sweats, No problem reported Integumentary: No rash, No itch, No new/changing skin lesions, No color change, No bleeding, No problem reported Physical Exam: General Appearance: WD/WN, no apparent distress Eyes: normal inspection, EOMI, sclerae normal ENT: normal ENT inspection, hearing grossly normal, pharynx normal Neck: supple, no adenopathy, no JVD, trachea midline Respiratory/Chest: chest non-tender, lungs clear, normal breath sounds, no respiratory distress, no accessory muscle use Cardiovascular: regular rate, rhythm, no edema, no gallop, no JVD, no murmur , normal peripheral pulses Abdomen / GI: normal bowel sounds, non tender, soft, no organomegaly Extremities: normal inspection, no calf tenderness, normal capillary refill , no pedal edema, normal range of motion, pelvis stable 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, no motor/sensory deficits , alert, normal mood/affect, normal reflexes, oriented x 3 Skin: normal color, warm/dry, no rash Hospital Course 76yo male with history of HTN, DM, HLP and ILD on 5L O2 at baseline presenting with shaking chills, leukocytosis - Acute and chronic hypoxic respiratory failure appears closer to baseline, no increased work of breathing, no desaturations with ambulation he is maintaining >90% on 5L at rest which he wears chronically patient wishes to go home - Interstitial lung disease still being worked up at [facility], has an appointment later this month planning on right heart catheterization Dr. Jackson recommends bronchoscopy and sampling of nodes sent serology markers -- DEION, GRINDER OPERATOR TOOL and LOBO inhibitor levels all normal continue nebulizers - Atypical pneumonia likely lead to the acute worsening of his breathing improved quickly with Levaquin recommend completing a 7 day course, prescription provided - Pulmonary edema: resolved, no rales admits that he diuresed more echo shows EF preserved, has pulmonary hypertension which would be expected given his ILD no need for daily diuretics at this time - Diabetes - admits to having hypoglycemic episodes in the morning when at home he was going to discuss with Ruby Ruffin but was sent to the ED due to his breathing difficulties recommend a slight reduction in Lantus at 55 units in the evening recommend he call to discuss with endocrinology soon after discharge, try to reschedule appointment -Hypertension- patient presently normotensive. -Continue Ramipril -Continue to monitor - Hyperlipidemia - stable, chronic, Continue Lipitor - Carotid stenosis - asymptomatic, no bruits appreciated Continue Plavix Total Time Spent: Greater than 30 minutes This includes examination of the patient, discharge planning, medication reconciliation, and communication with other providers. Discharge Instructions Please refer to the electronic Patient Visit Report (Discharge Instructions) for additional information. Follow-Up Dr. Yeboah in one week Pulmonology at [facility] on 11/19 Endocrinology in a few weeks Additional Copies To Mp Yeboah M.D.; [place], Ana Peng
== END 2017-11-06 14:52 | disposition home or self-care (01) | DRG 196 ==
LOC: EDBD 11:55 → C.EDA 11:56 → C.MS2W 17:07 → ENRESERV 17:20
PROVIDERS: ADMIT Internal Medicine; ATTEND Internal Medicine
DX: D86.9 Sarcoidosis, unspecified (principal); J18.9 Pneumonia, unspecified organism; J96.21 Acute and chronic respiratory failure with hypoxia; I10 Essential (primary) hypertension; E03.9 Hypothyroidism, unspecified; E11.649 Type 2 diabetes mellitus with hypoglycemia without coma; E78.5 Hyperlipidemia, unspecified; I65.29 Occlusion and stenosis of unspecified carotid artery; Z79.02 Long term (current) use of antithrombotics/antiplatelets; Z79.4 Long term (current) use of insulin; Z79.84 Long term (current) use of oral hypoglycemic drugs; Z79.899 Other long term (current) drug therapy; Z87.891 Personal history of nicotine dependence; Z99.81 Dependence on supplemental oxygen

== ENCOUNTER 2019-08-12 01:15 | Inpatient (IN) ==
[2019-08-12] MEDS ORDERED: SODIUM CHLORIDE 0.9% 500 ML IV ONE (01:37)
[2019-08-12 01:46] LABS: Basophils # (auto) 0.05 K/uL (0-0.2); Basophils % (auto) 0.3 %; Eosinophils % (auto) 1.9 %; Hematocrit (blood only) 45.2 % (42-52); Hemoglobin 15.1 g/dL (14.0-18.0); Immature Granulocytes # (auto) 0.11 K/uL (0.00-0.02); Immature Granulocytes % (auto) 0.7 %; Lymphocytes # (auto) 4.05 K/uL (1.2-3.4); Lymphocytes % (auto) 25.1 %; Mean Corpuscular Hemoglobin 31.9 pg (25-34); Mean Corpuscular Hgb Conc 33.4 g/dL (32-36); Mean Corpuscular Volume 95.4 fL (80-100); Neutrophils # (auto) 10.34 K/uL (1.4-6.5); Nucleated RBC # (auto) 0.05 K/uL (0-0); Nucleated RBC % (auto) 0.3 %; Platelet Count 272 K/uL (130-400); RDW Standard Deviation 61.3 fL (36.4-46.3); Red Blood Count 4.74 M/uL (4.7-6.1); White Blood Count 16.15 K/uL (4.8-10.8)
[2019-08-12] MEDS ORDERED: LEVOFLOXACIN/D5W 750 MG/150 ML BAG IV STA (02:05)
[2019-08-12] MEDS ORDERED: PIPERACILL/TAZOBAC CONSULT ACTIVE PRN (02:05)
[2019-08-12] MEDS ORDERED: PIPERACILLIN/TAZOBACTAM 4.5 GM/120 ML BAG IV ONE (02:05)
[2019-08-12 02:20] LABS: INR 1.3 (0.9-1.1); Partial Thromboplastin Ratio 1.1; Partial Thromboplastin Time 29.4 Seconds (21.0-31.0); Prothrombin Time 13.6 Seconds (9.0-12.0)
[2019-08-12 02:26] LABS: Albumin Level 3.1 gm/dl (3.4-5.0); Calcium 8.5 mg/dl (8.5-10.1); Creatinine Clr Calc Pharmacy 51.5 ml/min; Est GFR (African American) 65.8; Est GFR (Non-African American) 56.8; Magnesium 1.2 mg/dl (1.8-2.4); Potassium 3.8 mmol/L (3.5-5.1)
[2019-08-12 02:38] LABS: Albumin Globulin Ratio 0.8 (0.9-2); Bilirubin,Total 0.9 mg/dl (0.2-1); Total Protein 7.1 gm/dl (6.4-8.2); Troponin I 0.077 ng/ml (0-0.045)
[2019-08-12] MEDS ORDERED: METOPROLOL TARTRATE 1 MG/ML VIAL IV STA (03:21)
[2019-08-12] MEDS: METOPROLOL TARTRATE 1 MG/ML VIAL IV ONE ×2 (03:26→03:38)
--- NOTE | 2019-08-12 03:27 | Emergency Department Note ---
Impression & Plan Respiratory failure, Hypoxia, Aspiration pneumonia, Syncope ED Provider Note NAME: ALAYNA HADDAD AGE: 78 SEX: M ARRIVES VIA: Ambulance INFORMANT: Patient ED PROVIDER(S): Cortney Bowling DO CHIEF COMPLAINT: Respiratory distress PLAN: Disposition: Admitted to the [facility]ist MEDICAL DECISION MAKING: This is an 78-year-old male patient with a history of interstitial lung disease and diabetes who presents to the emergency department in respiratory failure. The patient had an episode of hypoglycemia at home for which he was attempting to correct by drinking pancake syrup when he had a syncopal event. Upon awakening from the syncopal event, the patient denies injuring himself but noted that he was becoming increasingly short of breath. By the time EMS arrived at his home, he had an O2 saturation in the 60s. The patient denies that he had any respiratory symptoms or complaints prior to this syncopal event. It seems that the patient may have aspirated what ever he was trying to consume to corre ct his blood sugar. He describes taking raisins, pancakes syrup, and a packet of sugar. The patient's sister told nursing staff that it is not uncommon for the patient to eat marshmallows when he is hypoglycemic to correct his blood sugars. Upon EMS arrival at the home, the patient's blood sugar was greater than 400. On chest x-ray here in the emergency department, there appears to be increased interstitial findings on the left which may represent pulmonary edema or early aspiration pneumonia. The case was discussed with the [facility] hospitalist and they will evaluate for further management. Triage Nursing notes reviewed and agree them. Additional history obtained from EMS and the patient's sister Prior medical records reviewed Vital Signs: reviewed and remarkable for hypoxia Differential diagnosis: Aspiration pneumonia, congestive heart failure, COVID-19, pulmonary edema ER treatment provided: IV Levaquin, IV Pipracil and/tazobactam, IV normal saline Diagnostics interpreted by me: ECG: Sinus tachycardia at [address] segment depression in leads V2 and V3 which is new in comparison to an EKG from October 2017. There is no obvious e ctopy or other significant signs of ischemia Cardiac Monitoring: Sinus tachycardia at 108 Laboratory studies: See below Imaging studies: Chest x-ray: Increased interstitial lung markings on the left concerning for early signs of aspiration pneumonia in the left lung versus pulmonary edema as per my interpretation HPI: 78/M arrives for evaluation of shortness of breath. This is an 78-year-old male patient who presents to the emergency department with increasing shortness of breath and hypoxia after syncopal event at home. The patient has a history of interstitial lung disease but was in his usual state of health throughout the day today until tonight when he developed an episode of hypoglycemia. The patient explains that he went to the kitchen to take food to increase his blood sugar and had a syncopal event. Prior to the syncopal event, the patient was eating raisins, taking sugar packets and drinking pancakes syrup. After he woke up on the floor, the patient noted that he was somewhat short of breath. After getting up off of the floor, the shortness of breath seem to significantly increase. He called 911. Upon EMS arrival, they found the patient extremely short of breath, rivera in color, with an O2 saturation in the 60s. They supplied him with supplemental oxygen and transported him here. His blood sugar was found to be greater than 400. The patient has been afebrile without a cough up to this point. He has had no exposure to COVID-19. He has not been going out of the house and no one has been coming into his home. At this time, the patient has this persistent dry hacking cough since the syncopal event. ROS: See above HPI for pertinent positives & negatives. A total of 10 systems reviewed and were otherwise negative. PAST MEDICAL HISTORY:See Below PAST SURGICAL HISTORY:See Below FAMILY HISTORY:See Below SOCIAL HISTORY:See Below HOME MEDICATIONS:See list ALLERGIES:See list VITALS:See Below PHYSICAL EXAMINATION: HEENT: Head - normocephalic and atraumatic Pupils are equal, round, and reactive to light. Extraocular eye muscles are intact, and sclera are anicteric. Nose - moist nasal mucosa without discharge. Mouth - moist buccal mucosa. Oropharynx is nonerythematous and there is no tonsillar exudate or edema noted. Neck: Supple; no JVD, nuchal rigidity, cervical lymphadenopathy, or auscultated bruits. Heart: Regular rate and rhythm. There is a normal S1 and S2 with no murmurs, clicks, or gallops appreciated. Lungs: Rhonchi at both bases Abdomen: Soft, completely nontender, nondistended, with good bowel sounds. There are no palpable pulsatile masses or hepatosplenomegaly. There is no guarding, rigidity, or rebound noted. Extremities: No evidence of cyanosis, clubbing, or edema. There are easily palpable peripheral pulses. Skin: warm and dry with good turgor and no rashes. ED COURSE: The patient was evaluated in room B1. A complete history and physical was performed upon his arrival. The patient had a very weak frequent cough and he appeared to be in moderate respiratory distress. A septic protocol was performed. A chest x-ray was obtained. An order was placed for continuous cardiac monitoring. The patient was noted to be in a sinus tachycardia at a rate of 110. Point of care lactic acid was obtained and found to be greater than 5. Patient was treated with IV normal saline solution and IV Levaquin and Pipracillin /tazobactam. A twelve-lead EKG was obtained as described above. The patient was initially tried on an oxy mask but could not maintain his oxygen saturations. I did discuss CODE STATUS with the patient. He did request to be a full code. He was then switched to high flow oxygen through [employer]. I discussed the case with the [facility] Hospitalist and they will evaluate the patient for further management. His O2 saturations were better maintained on high flow oxygen. I have personally spent greater than 80 minutes of critical care time in the direct management of this patient. This includes bedside care, interpretation of diagnostic studies, and testing, discussion with consultants, patient, and family members, and other required patient management activities. This 80 minutes is in excess of all separately billable procedures. Cortney Bowling DO Past Med/Surg History Social History Preferred Language: Latvian Communication Ability: Effective Visual Impairment: No Limitations Hearing Ability: Normal [place] Required: No Beliefs That Will Affect Care: None marital status: Single Current Living Situation: Alone current occupational status: retired Other Information That Helps Us Care for You: No Feels Safe at Home: Yes Safety Concerns: Feels Safe At This Time Smoking Status: Former smoker Tobacco Type: cigarettes ; Age Started Using Tobacco: 15 ; Age Quit Using Tobacco: 39 ; packs per day: 2 ; Cigarettes Per Day: 40 ; Do You Dip or Chew Tobacco: No ; Smoking End Date: 40 years ago ; Number of Years Since Quit: 39 ; Second Hand Exposure: No ; Tobacco Cessation Education Requested by Patient: No Hx Alcohol Use: No Hx Substance Use: No Childhood Exposure to Second-Hand Smoke: Yes caffeine: No Dental Care, Regularly: Yes Physical Activity Frequency: Does not Exercise Physical Activity Frequency Comment: due to left knee Seatbelt Use: always Sunscreen Use: No Allergies Allergies Allergy/AdvReac Type Severity Reaction Status Date / Time cyanocobalamin (vitamin B12) Allergy Mild Rash Verified 08/12/19 01:30 niacinamide Allergy Unknown RASH Verified 08/12/19 01:30 pyridoxine Allergy Unknown RASH Verified 08/12/19 01:30 riboflavin (vitamin B2) Allergy Unknown RASH Verified 08/12/19 01:30 tetracycline Allergy Unknown RASH Verified 08/12/19 01:30 thiamine (vitamin B1) Allergy Unknown RASH Verified 08/12/19 01:30 Home Meds Home Medications Medication Instructions Recorded Confirmed cholecalciferol (vitamin D3) 2,000 unit PO QAM 07/06/18 08/12/19 [Vitamin D3] potassium 99 mg PO QAM 07/06/18 08/12/19 amoxicillin 500 mg tablet 2,000 mg PO UD PRN tab 02/05/19 08/12/19 insulin glargine 100 unit/mL 55 units SUBCUT HS ml 07/22/19 08/12/19 subcutaneous solution atorvastatin 20 mg PO DAILY 08/12/19 08/12/19 metformin 500 mg PO DAILY 08/12/19 08/12/19 Previous Rx's Medication Instructions Recorded omeprazole 20 mg tablet,delayed 20 mg PO QAM #90 tab 11/16/18 release ramipril 2.5 mg capsule 2.5 mg PO QAM #90 cap 12/14/18 pen needle, diabetic 32 gauge x #400 ea 01/05/19" Novolog Flexpen U-100 Insulin 100 See Rx Instructions .ROUTE 02/08/19 unit/mL (3 mL) subcutaneous .COMPLEX 90 Days #3 box NS hydrocortisone 2.5 % topical cream 1 appln [place] BID PRN #28.35 gm 02/09/19 with perineal applicator Miscellaneous Pulmonary Supply #1 ea 03/12/19 clopidogrel 75 mg tablet 75 mg PO QAM #90 tab 06/02/19 torsemide 10 mg tablet 10 mg PO DAILY #90 tab 07/16/19 Results & Data (ED) Vital Signs Vital Signs - 24 hr 08/12/19 01:20 08/12/19 01:37 08/12/19 01:40 Temperature 36.7 C Temperature Source Oral Pulse Rate 112 H Pulse Rate [Apical] Pulse Rate from SpO2 Sensor Respiratory Rate 26 H Respiratory Effort / Characteristics Respiratory Depth Normal Respiratory Pattern Regular Blood Pressure 147/87 H Blood Pressure Mean 107 Pulse Oximetry 93 94 Oxygen Delivery Method Non-rebreather Oxymask Oxymask Oxygen Flow Rate 15 12 12 Fraction of Inspired Oxygen Sepsis Recent Fever Within 48 Hours No Sepsis New/Unexplained Change in Mental Status No Sepsis Action Taken by Nursing No Action Required Oxygen Flow Rate - Titration Fraction of Inspired Oxygen - Titration Pulse Oximetry Post Tiitration 93 08/12/19 01:47 08/12/19 02:01 08/12/19 02:15 Temperature Temperature Source Pulse Rate 108 H 108 H 105 H Pulse Rate [Apical] Pulse Rate from SpO2 Sensor 110 H 108 H 105 H Respiratory Rate 25 H 30 H 29 H Respiratory Effort / Characteristics Respiratory Depth Respiratory Pattern Blood Pressure 144/78 H 119/103 H 144/95 H Blood Pressure Mean 100 104 111 Pulse Oximetry 92 90 90 Oxygen Delivery Method Oxymask Oxymask Oxymask Oxygen Flow Rate 12 12 12 Fraction of Inspired Oxygen Sepsis Recent Fever Within 48 Hours Sepsis New/Unexplained Change in Mental Status Sepsis Action Taken by Nursing Oxygen Flow Rate - Titration Fraction of Inspired Oxygen - Titration Pulse Oximetry Post Tiitration 08/12/19 02:30 08/12/19 02:46 08/12/19 02:49 Temperature Temperature Source Pulse Rate 104 H 105 H Pulse Rate [Apical] Pulse Rate from SpO2 Sensor 105 H 106 H Respiratory Rate 30 H 29 H Respiratory Effort / Characteristics Respiratory Depth Respiratory Pattern Blood Pressure 136/83 143/78 H Blood Pressure Mean 96 91 Pulse Oximetry 88 L 88 L Oxygen Delivery Method Oxymask Oxymask High Flow Nasal Cannula Oxygen Flow Rate 12 15 Fraction of Inspired Oxygen Sepsis Recent Fever Within 48 Hours Sepsis New/Unexplained Change in Mental Status Sepsis Action Taken by Nursing Oxygen Flow Rate - Titration 30 Fraction of Inspired Oxygen - Titration 100 Pulse Oximetry Post Tiitration 93 08/12/19 03:02 08/12/19 03:19 Temperature Temperature Source Pulse Rate 105 H Pulse Rate [Apical] 103 H Pulse Rate from SpO2 Sensor 107 H Respiratory Rate 38 H 24 Respiratory Effort / Characteristics Spontaneous Respiratory Depth Respiratory Pattern Blood Pressure 162/60 H Blood Pressure Mean 119 Pulse Oximetry 91 92 Oxygen Delivery Method High Flow Nasal Cannula High Flow Nasal Cannula Oxygen Flow Rate 30 30 Fraction of Inspired Oxygen 100 100 Sepsis Recent Fever Within 48 Hours Sepsis New/Unexplained Change in Mental Status Sepsis Action Taken by Nursing Oxygen Flow Rate - Titration Fraction of Inspired Oxygen - Titration Pulse Oximetry Post Tiitration Laboratory Data Result diagrams: 08/12/19 01:30 08/12/19 02:00 Lab Results 08/12/19 08/12/19 08/12/19 Range/Units 01:30 01:30 01:30 WBC 16.15 H (4.8-10.8) K/uL RBC 4.74 (4.7-6.1) M/uL Hgb 15.1 (14.0-18.0) g/dL Hct 45.2 (42-52) % MCV 95.4 (80-100) fL MCH 31.9 (25-34) pg MCHC 33.4 (32-36) g/dL RDW Std Deviation 61.3 H (36.4-46.3) fL RDW Coeff of Ron 18.0 H (11.5-14.5) % Plt Count 272 (130-400) K/uL Immature Gran % (Auto) 0.7 % Neut % (Auto) 64.0 % Lymph % (Auto) 25.1 % [place] % (Auto) 8.0 % Eos % (Auto) 1.9 % Baso % (Auto) 0.3 % Immature Gran # (Auto) 0.11 H (0.00-0.02) K/uL Neut # (Auto) 10.34 H (1.4-6.5) K/uL Lymph # (Auto) 4.05 H (1.2-3.4) K/uL [place] # (Auto) 1.30 H (0.11-0.59) K/uL Eos # (Auto) 0.30 (0-0.5) K/uL Baso # (Auto) 0.05 (0-0.2) K/uL Absolute Nucleated RBC 0.05 H (0-0) K/uL Nucleated RBC % (auto) 0.3 % PT Cancelled INR Cancelled APTT Cancelled PTT Ratio Cancelled Sodium Cancelled Potassium Cancelled Chloride Cancelled Carbon Dioxide Cancelled Anion Gap Cancelled BUN Cancelled Creatinine Cancelled Est Cr Clr Drug Dosing Cancelled Est GFR ( Amer) Cancelled Est GFR (Non-Af Amer) Cancelled BUN/Creatinine Ratio Cancelled Glucose Cancelled POC Lactic Acid Michael (0.90-1.70) mmol/L Lactate (0.4-2.0) mmol/L Calcium Cancelled Magnesium Cancelled Total Bilirubin Cancelled AST Cancelled ALT Cancelled Alkaline Phosphatase Cancelled Troponin I Cancelled Total Protein Cancelled Albumin Cancelled Globulin Cancelled Albumin/Globulin Ratio Cancelled 08/12/19 08/12/19 08/12/19 Range/Units 01:49 01:59 02:00 WBC (4.8-10.8) K/uL RBC (4.7-6.1) M/uL Hgb (14.0-18.0) g/dL Hct (42-52) % MCV (80-100) fL MCH (25-34) pg MCHC (32-36) g/dL RDW Std Deviation (36.4-46.3) fL RDW Coeff of Ron (11.5-14.5) % Plt Count (130-400) K/uL Immature Gran % (Auto) % Neut % (Auto) % Lymph % (Auto) % [place] % (Auto) % Eos % (Auto) % Baso % (Auto) % Immature Gran # (Auto) (0.00-0.02) K/uL Neut # (Auto) (1.4-6.5) K/uL Lymph # (Auto) (1.2-3.4) K/uL [place] # (Auto) (0.11-0.59) K/uL Eos # (Auto) (0-0.5) K/uL Baso # (Auto) (0-0.2) K/uL Absolute Nucleated RBC (0-0) K/uL Nucleated RBC % (auto) % PT INR APTT PTT Ratio Sodium 143 Potassium 3.8 Chloride 110 H Carbon Dioxide 22 Anion Gap 11.0 BUN 22 H Creatinine 1.20 Est Cr Clr Drug Dosing 51.5 Est GFR ( Amer) 65.8 Est GFR (Non-Af Amer) 56.8 BUN/Creatinine Ratio 18.0 Glucose 257 H POC Lactic Acid Michael 5.16 H (0.90-1.70) mmol/L Lactate 4.3 H* (0.4-2.0) mmol/L Calcium 8.5 Magnesium 1.2 L Total Bilirubin 0.9 AST 26 ALT 41 Alkaline Phosphatase 134 H Troponin I 0.077 H* Total Protein 7.1 Albumin 3.1 L Globulin 4.0 Albumin/Globulin Ratio 0.8 L 08/12/19 Range/Units 02:00 WBC (4.8-10.8) K/uL RBC (4.7-6.1) M/uL Hgb (14.0-18.0) g/dL Hct (42-52) % MCV (80-100) fL MCH (25-34) pg MCHC (32-36) g/dL RDW Std Deviation (36.4-46.3) fL RDW Coeff of Ron (11.5-14.5) % Plt Count (130-400) K/uL Immature Gran % (Auto) % Neut % (Auto) % Lymph % (Auto) % [place] % (Auto) % Eos % (Auto) % Baso % (Auto) % Immature Gran # (Auto) (0.00-0.02) K/uL Neut # (Auto) (1.4-6.5) K/uL Lymph # (Auto) (1.2-3.4) K/uL [place] # (Auto) (0.11-0.59) K/uL Eos # (Auto) (0-0.5) K/uL Baso # (Auto) (0-0.2) K/uL Absolute Nucleated RBC (0-0) K/uL Nucleated RBC % (auto) % PT 13.6 H INR 1.3 H APTT 29.4 PTT Ratio 1.1 Sodium Potassium Chloride Carbon Dioxide Anion Gap BUN Creatinine Est Cr Clr Drug Dosing Est GFR ( Amer) Est GFR (Non-Af Amer) BUN/Creatinine Ratio Glucose POC Lactic Acid Michael (0.90-1.70) mmol/L Lactate (0.4-2.0) mmol/L Calcium Magnesium Total Bilirubin AST ALT Alkaline Phosphatase Troponin I Total Protein Albumin Globulin Albumin/Globulin Ratio Administered Medications Atorvastatin Calcium (Lipitor) [facility] [place] Stop: 09/11/19 08:59 Last Admin: 08/12/19 08:37 Dose: 20 mg Documented by: [id number] Clopidogrel Bisulfate (Plavix) 75 mg PO [facility] Stop: 09/11/19 08:59 Last Admin: 08/12/19 08:37 Dose: 75 mg Documented by: [id number] Famotidine (Pepcid) 20 mg PO [facility] Stop: 09/11/19 08:59 Last Admin: 08/12/19 08:37 Dose: 20 mg Documented by: [id number] Ampicillin Sodium/Sulbactam Sodium 1,500 mg/ Sodium Chloride 104 mls @ 200 mls/hr IV Q6H [facility]; Protocol Stop: 08/19/19 11:59 Last Infusion: 08/13/19 00:48 Dose: 0 mls/hr Documented by: [id number] Admin: 08/13/19 00:07 Dose: 200 mls/hr Documented by: [id number] Infusion: 08/12/19 20:56 Dose: 0 mls/hr Documented by: [id number] Admin: 08/12/19 18:31 Dose: 200 mls/hr Documented by: [id number] Infusion: 08/12/19 13:02 Dose: 0 mls/hr Documented by: [id number] Admin: 08/12/19 12:30 Dose: 200 mls/hr Documented by: [id number] Insulin Aspart (Novolog Flexpen) 0 units SC [facility] Stop: 09/11/19 07:29 Last Admin: 08/12/19 21:12 Dose: Not Given Documented by: [id number] Cosigned by: [id number] Admin: 08/12/19 17:27 Dose: 2 units Documented by: [id number] Cosigned by: [id number] Admin: 08/12/19 13:08 Dose: 3 units Documented by: [id number] Cosigned by: [id number] Admin: 08/12/19 08:33 Dose: 1 units Documented by: [id number] Cosigned by: [id number] Insulin Glargine (Lantus Solostar Pen) 45 units SC [facility] Stop: 09/11/19 20:59 Last Admin: 08/12/19 21:11 Dose: 45 units Documented by: [id number] Cosigned by: [id number] Menthol (Nice) 1 ariella BUCCAL TID PRN PRN Reason: cough Stop: 09/11/19 14:00 Last Admin: 08/12/19 14:11 Dose: 1 ariella Documented by: [id number] Torsemide (Demadex) 10 mg PO [facility] Stop: 09/11/19 08:59 Last Admin: 08/12/19 08:36 Dose: 10 mg Documented by: [id number] Discontinued Medications Sodium Chloride (Nss) 500 mls @ 999 mls/hr IV .Q31M ONE Stop: 08/12/19 02:07 Last Infusion: 08/12/19 02:22 Dose: 0 mls/hr Documented by: [id number] Admin: 08/12/19 01:51 Dose: 999 mls/hr Documented by: [id number] Piperacillin Sod/Tazobactam Sod (Zosyn) 4.5 gm in 120 mls @ 240 mls/hr IV NOW ONE Stop: 08/12/19 02:34 Last Infusion: 08/12/19 02:47 Dose: 0 mls/hr Documented by: [id number] Admin: 08/12/19 02:12 Dose: 240 mls/hr Documented by: [id number] Levofloxacin/Dextrose (Levaquin/D5w) 750 mg in 150 mls @ 100 mls/hr IV NOW STA Stop: 08/12/19 03:34 Last Infusion: 08/12/19 04:07 Dose: 0 mls/hr Documented by: [id number] Admin: 08/12/19 02:47 Dose: 100 mls/hr Documented by: [id number] Ampicillin Sodium/Sulbactam Sodium 1,500 mg/ Sodium Chloride 104 mls @ 200 mls/hr IV NOW STA; Protocol Stop: 08/12/19 04:54 Last Infusion: 08/12/19 05:28 Dose: 0 mls/hr Documented by: [id number] Admin: 08/12/19 04:50 Dose: 200 mls/hr Documented by: [id number] Magnesium Sulfate/Dextrose (Magnesium Sulfate / D5w) 1 gm in 100 mls @ 100 mls/hr IV Q1H [facility] Stop: 08/12/19 07:06 Last Infusion: 08/12/19 09:02 Dose: 0 mls/hr Documented by: [id number] Admin: 08/12/19 06:25 Dose: 100 mls/hr Documented by: [id number] Infusion: 08/12/19 06:25 Dose: 100 mls/hr Documented by: [id number] Admin: 08/12/19 05:33 Dose: 100 mls/hr Documented by: [id number] Sodium Chloride (Nss 1000ml) 1,000 mls @ 120 mls/hr IV .Q8H20M ONE Stop: 08/12/19 13:30 Last Infusion: 08/12/19 09:12 Dose: 0 mls/hr Documented by: [id number] Admin: 08/12/19 05:33 Dose: 120 mls/hr Documented by: [id number] Furosemide 40 mg/ Syringe 4 mls @ 4 mls/min IV ONE ONE Stop: 08/12/19 08:51 Last Admin: 08/12/19 09:12 Dose: 4 mls/min Documented by: [id number] Furosemide 40 mg/ Syringe 4 mls @ 4 mls/min IV ONE ONE Stop: 08/12/19 15:01 Last Admin: 08/12/19 15:47 Dose: 4 mls/min Documented by: [id number] Metoprolol Tartrate (Lopressor) 5 mg IV NOW STA Stop: 08/12/19 03:22 Last Admin: 08/12/19 03:46 Dose: Not Given Documented by: [id number] Metoprolol Tartrate (Lopressor) Confirm Administered Dose 5 mg IV .STK-MED ONE Stop: 08/12/19 03:24 Last Admin: 08/12/19 03:38 Dose: 5 mg Documented by: [id number] Discharge Plan Visit Data *Final* Discharge Date/Time: 08/12/19 04:03 Chief Complaint: Respiratory Problems Stated Complaint: RESPIRATORY PROBLEMS ED Provider: Cortney Bowling Discharge Problem: Respiratory failure, Hypoxia, Aspiration pneumonia, Syncope Patient Disposition: Admitted As Inpatient Discharge Instructions Interventions: ED Discharge Assessment Last Done: 08/12/19 04:03 Discharge Problem: Respiratory failure Qualifiers: Chronicity: acute Respiratory failure complication: hypoxia Qualified Code(s): J96.01 - Acute respiratory failure with hypoxia Aspiration pneumonia Qualifiers: Aspiration pneumonia type: unspecified Laterality: unspecified laterality Lung location: unspecified part of lung Qualified Code(s): J69.0 - Pneumonitis due to inhalation of food and vomit Syncope Qualifiers: Syncope type: unspecified Qualified Code(s): R55 - Syncope and collapse
--- NOTE | 2019-08-12 04:17 | History & Physical Report ---
Date of Service August 12, 2019 Assessment & Plan (1) Dyslipidemia: 78 yo M with PMH pulm HTN, right sided heart failure, dyslipidemia, interstitial lung disease admitted for aspiration pneumonia and hypoxemia. 1) Hypoxemia secondary to aspiration pneumonia - O2 sats in 70s without supplementation. Pt normally on 5L at home. 95% on 30L HFNC 100%. - CXR showing left lower lobe opacity likely pneumonitis vs pneumonia secondary to aspiration event - Lactate elevated at 4.3 - WBC elevated at 16.15 - Pt unable to speak full sentence without coughing; would not be able to sit through CT Chest at this time - empiric treatment with Unasyn - Appreciate recommendations from Pulmonary team & assistance with bronchoscopy to evaluate plugging of bronchial tree 2) Elevated Troponin - 0.077, repeats ordered for trending at 10 am and 6 pm - likely secondary to increased myocardial depend with coughing fits - denies any chest pain, normal EKG - home 75 mg plavix continued 3)Hypomagnesemia - Mg 1.2, repleted 4) Peripheral Edema/heart failure - possible underlying heart failure exacerbation in addition to aspiration PNA with constellation of dyspnea, peripheral edema and hypoxemia - hx of right heart failure - 10 mg torsemide daily continued - consider slow titration of diuretic to offload extra fluid in order to avoid collapsing preload 5) Pulm HTN - continued ramipril 2.5 6) DM2 - metformin 500 continued - SSI insulin with meals - 55 U lantus at bedtime DVT ppx: not indicated FEN/GI: NPO Code status: full code Dispo: Med/Surg with Tele (2) Obesity (BMI 30.0-34.9): (3) Right heart failure: (4) Interstitial lung disease: (5) Type 2 diabetes mellitus: (6) HTN (hypertension): (7) Pulmonary hypertension: (8) Hypoxia: (9) Aspiration pneumonia: History of Present Illness 78 yo M with PMH pulm HTN, right sided heart failure, interstitial lung disease, dyslipidemia brought to the ED by ambulance for peripheral cyanosis. Per patient, he measured his blood sugar prior to bed and found it to be "low" in the 100s. He proceeded to eat some sugar packets and raisins, which didn't incr ease his blood sugar. He then proceeded to pour some pancake syrup in his mouth to try and increase his BSG. He remembers walking over to his sink after this, and then woke up on the floor sometime later. He denies hitting his head on anything, but doesn't remember passing out or falling asleep. Upon getting up, he had a severe cough but was able to ambulate back to his bedroom, whereupon he noticed his hands were blue and he called 911. He denies any recent fevers or chills, night sweats, sick contacts, dyspnea prior to the aspiration event, chest pain, palpitations. He currently still has a strong cough but denies any pain with taking a deep breath or positional improvement in breathing. He attests to feeling very warm despite not having any blankets on him and having a normal temperature. Primary Care Provider: Mp Yeboah MD Allergies Allergy/AdvReac Type Severity Reaction Status Date / Time cyanocobalamin (vitamin B12) Allergy Mild Rash Verified 08/12/19 01:30 niacinamide Allergy Unknown RASH Verified 08/12/19 01:30 pyridoxine Allergy Unknown RASH Verified 08/12/19 01:30 riboflavin (vitamin B2) Allergy Unknown RASH Verified 08/12/19 01:30 tetracycline Allergy Unknown RASH Verified 08/12/19 01:30 thiamine (vitamin B1) Allergy Unknown RASH Verified 08/12/19 01:30 Home Medications Home Medications Medication Instructions Recorded Confirmed Type cholecalciferol (vitamin D3) 2,000 unit PO QAM 07/06/18 08/12/19 History [Vitamin D3] potassium 99 mg PO QAM 07/06/18 08/12/19 History omeprazole 20 mg tablet,delayed 20 mg PO QAM #90 tab 11/16/18 08/12/19 Rx release ramipril 2.5 mg capsule 2.5 mg PO QAM #90 cap 12/14/18 08/12/19 Rx pen needle, diabetic 32 gauge x #400 ea 01/05/19 07/29/19 Rx 532" amoxicillin 500 mg tablet 2,000 mg PO UD PRN tab 02/05/19 08/12/19 History Novolog Flexpen U-100 Insulin 100 See Rx Instructions .ROUTE 02/08/19 08/12/19 Rx unit/mL (3 mL) subcutaneous .COMPLEX 90 Days #3 box NS hydrocortisone 2.5 % topical cream 1 appln MI BID PRN #28.35 gm 02/09/19 08/12/19 Rx with perineal applicator Miscellaneous Pulmonary Supply #1 ea 03/12/19 07/29/19 Rx clopidogrel 75 mg tablet 75 mg PO QAM #90 tab 06/02/19 08/12/19 Rx torsemide 10 mg tablet 10 mg PO DAILY #90 tab 07/16/19 08/12/19 Rx insulin glargine 100 unit/mL 55 units SUBCUT HS ml 07/22/19 08/12/19 History subcutaneous solution atorvastatin 20 mg PO DAILY 08/12/19 08/12/19 History metformin 500 mg PO DAILY 08/12/19 08/12/19 History Past Med/Surg History Social History Preferred Language: Polish Communication Ability: Effective Visual Impairment: No Limitations Hearing Ability: Normal Mat Gauger Required: No Beliefs That Will Affect Care: None marital status: Single Current Living Situation: Alone current occupational status: retired Other Information That Helps Us Care for You: No Feels Safe at Home: Yes Safety Concerns: Feels Safe At This Time Smoking Status: Former smoker Tobacco Type: cigarettes ; Age Started Using Tobacco: 15 ; Age Quit Using Tobacco: 39 ; packs per day: 2 ; Cigarettes Per Day: 40 ; Do You Dip or Chew Tobacco: No ; Smoking End Date: 40 years ago ; Number of Years Since Quit: 39 ; Second Hand Exposure: No ; Tobacco Cessation Education Requested by Patient: No Hx Alcohol Use: No Hx Substance Use: No Childhood Exposure to Second-Hand Smoke: Yes caffeine: No Dental Care, Regularly: Yes Physical Activity Frequency: Does not Exercise Physical Activity Frequency Comment: due to left knee Seatbelt Use: always Sunscreen Use: No Review of Systems Constitutional: no fever, no chills, no body aches and no fatigue Respiratory: + cough and + dyspnea Cardiovascular: + dyspnea and + edema; no chest pain Gastrointestinal: no abdominal pain, no nausea, no vomiting, no constipation and no diarrhea/loose stools Physical Exam Constitutional: + acute distress, + ill appearing and cooperative reddened face secondary to frequent strong coughs Neck: normal visual inspection Respiratory: + labored breathing and + cough; + abnormal respiratory effort, no respiratory distress, no retractions, + not able to speak in complete sentence and no audible wheezes Auscultation: lungs clear to auscultation bilaterally and + rhonchi; no crackles, no rales and no wheezes Cardiovascular: Rate/Rhythm: regular rhythm and + tachycardic Heart Sounds: normal S1 and normal S2; no gallop, no murmur and no cardiac rub Vessels: posterior tibial pulses present Extremities: normal capillary refill, + pedal edema and + edema Gastrointestinal (Abdomen): Inspection/Auscultation: abdomen normal to inspection and normal bowel sounds; abdomen not distended Percussion/Palpation: abdomen soft; abdomen nontender, no guarding, abdomen not rigid and no abdominal mass Skin: + skin tightening and + nails discolored stasis dermatitis changes of skin at lower legs bilaterally Results & Data Results & Data ([facility]) Vital Signs (Past 12 Hours) Vital Signs Temp Pulse Pulse Resp BP Pulse Ox 08/12/19 04:01 82 34 H 120/65 95 08/12/19 03:46 82 28 H 122/89 95 08/12/19 03:30 103 H 37 H 156/92 H 92 08/12/19 03:19 103 H 24 92 08/12/19 03:15 107 H 26 H 144/83 H 94 08/12/19 03:02 105 H 38 H 162/60 H 91 08/12/19 02:46 105 H 29 H 143/78 H 88 L 08/12/19 02:30 104 H 30 H 136/83 88 L 08/12/19 02:15 105 H 29 H 144/95 H 90 08/12/19 02:01 108 H 30 H 119/103 H 90 08/12/19 01:47 108 H 25 H 144/78 H 92 08/12/19 01:40 94 08/12/19 01:20 36.7 C 112 H 26 H 147/87 H 93 Laboratory Results WBC 16.15 K/uL (4.8-10.8) H 08/12/19 01:30 RBC 4.74 M/uL (4.7-6.1) 08/12/19 01:30 Hgb 15.1 g/dL (14.0-18.0) 08/12/19 01:30 Hct 45.2 % (42-52) 08/12/19 01:30 MCV 95.4 fL (80-100) 08/12/19 01:30 MCH 31.9 pg (25-34) 08/12/19 01:30 MCHC 33.4 g/dL (32-36) 08/12/19 01:30 RDW Std Deviation 61.3 fL (36.4-46.3) H 08/12/19 01:30 RDW Coeff of Ron 18.0 % (11.5-14.5) H 08/12/19 01:30 Plt Count 272 K/uL (130-400) 08/12/19 01:30 Immature Gran % (Auto) 0.7 % 08/12/19 01:30 Neut % (Auto) 64.0 % 08/12/19 01:30 Lymph % (Auto) 25.1 % 08/12/19 01:30 Yates % (Auto) 8.0 % 08/12/19 01:30 Eos % (Auto) 1.9 % 08/12/19 01:30 Baso % (Auto) 0.3 % 08/12/19 01:30 Immature Gran # (Auto) 0.11 K/uL (0.00-0.02) H 08/12/19 01:30 Neut # (Auto) 10.34 K/uL (1.4-6.5) H 08/12/19 01:30 Lymph # (Auto) 4.05 K/uL (1.2-3.4) H 08/12/19 01:30 Yates # (Auto) 1.30 K/uL (0.11-0.59) H 08/12/19 01:30 Eos # (Auto) 0.30 K/uL (0-0.5) 08/12/19 01:30 Baso # (Auto) 0.05 K/uL (0-0.2) 08/12/19 01:30 Absolute Nucleated RBC 0.05 K/uL (0-0) H 08/12/19 01:30 Nucleated RBC % (auto) 0.3 % 08/12/19 01:30 PT 13.6 Seconds (9.0-12.0) H 08/12/19 02:00 INR 1.3 (0.9-1.1) H 08/12/19 02:00 APTT 29.4 Seconds (21.0-31.0) 08/12/19 02:00 PTT Ratio 1.1 08/12/19 02:00 Sodium 143 mmol/L (136-145) 08/12/19 02:00 Potassium 3.8 mmol/L (3.5-5.1) 08/12/19 02:00 Chloride 110 mmol/L (98-107) H 08/12/19 02:00 Carbon Dioxide 22 mmol/L (21-32) 08/12/19 02:00 Anion Gap 11.0 (3-11) 08/12/19 02:00 BUN 22 mg/dl (7-18) H 08/12/19 02:00 Creatinine 1.20 mg/dl (0.6-1.4) 08/12/19 02:00 Est Cr Clr Drug Dosing 51.5 ml/min 08/12/19 02:00 Est GFR ( Amer) 65.8 08/12/19 02:00 Est GFR (Non-Af Amer) 56.8 08/12/19 02:00 BUN/Creatinine Ratio 18.0 (10-20) 08/12/19 02:00 Glucose 257 mg/dl (70-99) H 08/12/19 02:00 POC Glucose 271 mg/dl (70-99) H 08/12/19 04:22 POC Lactic Acid Michael 5.16 mmol/L (0.90-1.70) H 08/12/19 01:49 Lactate 4.3 mmol/L (0.4-2.0) H* 08/12/19 01:59 Calcium 8.5 mg/dl (8.5-10.1) 08/12/19 02:00 Magnesium 1.2 mg/dl (1.8-2.4) L 08/12/19 02:00 Total Bilirubin 0.9 mg/dl (0.2-1) 08/12/19 02:00 AST 26 U/L (15-37) 08/12/19 02:00 ALT 41 U/L (12-78) 08/12/19 02:00 Alkaline Phosphatase 134 U/L (45-117) H 08/12/19 02:00 Troponin I 0.077 ng/ml (0-0.045) H* 08/12/19 02:00 Total Protein 7.1 gm/dl (6.4-8.2) 08/12/19 02:00 Albumin 3.1 gm/dl (3.4-5.0) L 08/12/19 02:00 Globulin 4.0 gm/dl (2.5-4.0) 08/12/19 02:00 Albumin/Globulin Ratio 0.8 (0.9-2) L 08/12/19 02:00 Supervising Physician Co-Signing Physician Notes Attending addendum: I have physically seen this patient, have supervised the medical residents activities, and agree with the H&P unless as otherwise noted. Assessment and Plan: Acute respiratory failure with hypoxia/aspiration pneumonia of food contents- The patient will be admitted to telemetry for serial cardiac enzymes, serial EKG's, cardiac rhythm monitoring and a 2-D echocardiogram with Dopplers. NPO except essential medications Started on Unasyn IV Consult pulmonology for possible bronchoscopy look for foreign object. Elevated troponin/type II non-STEMI- Telemetry admission as noted above. Continue clopidogrel 75 mg p.o. daily. Hypomagnesemia- Magnesium 1.2 upon entry. Replace IV, recheck in a.m. Remainder of orders and notations as noted. Resident Activity Tracking Resident Involvement: Resident Care Provided Care Provided: Adult Hospital Medicine (1) Type 2 diabetes mellitus Diabetes mellitus adjunct faculty for medical terminology insulin use: with adjunct faculty for medical terminology use (2) HTN (hypertension) Hypertension type: essential hypertension Qualified Code(s): I10 - Essential (primary) hypertension
[2019-08-12] MEDS ORDERED: AMPICILLIN/SULBACTAM SOD 1,500 MG in 0.9 % SODIUM CHLORIDE 100 ML IV STA (04:23)
[2019-08-12] MEDS ORDERED: GLUCOSE 10 TABS/TUBE PO PRN (05:01)
[2019-08-12] MEDS ORDERED: CARBOHYDRATES FOR HYPOGLYCEMIA PO PRN (05:01)
[2019-08-12] MEDS ORDERED: GLUCAGON FOR INJ 1 MG VIAL SQ PRN (05:01)
[2019-08-12] MEDS ORDERED: GLUCOSE 40% GEL 15 GM TUBE PO PRN (05:01)
[2019-08-12] MEDS ORDERED: DEXTROSE 50% 50 ML SYRINGE IV PRN (05:01)
[2019-08-12] MEDS ORDERED: SODIUM CHLORIDE 0.9% 1000ML 1,000 ML IV ONE (05:11)
[2019-08-12] MEDS: MAGNESIUM SULFATE / D5W 1 GM/100 ML BAG IV SCH ×2 (05:33→06:25)
--- NOTE | 2019-08-12 07:02 | XRay Report ---
XR chest 1V portable CLINICAL HISTORY: 78 years-old Male presenting with SEPSIS. TECHNIQUE: Portable upright AP view of the chest was obtained. COMPARISON: 11/04/2017. FINDINGS: Atherosclerosis of the aortic arch. Cardiac silhouette enlarged. Persistent partial obscuration of th e left heart border may be due to pericardial fat. Pulmonary vascular and interstitial prominence wit h perihilar added density, left greater than right. Trace pleural effusions are not excluded. No larg e pneumothorax. Degenerative changes of the thoracic spine. Surgical material suggested in the right upper quadrant. IMPRESSION: 1. Cardiomegaly with findings concerning for volume overload and congestive change. Developing pulmo nary edema difficult to exclude especially on the left. 2. Worsening interstitial lung markings may relate to underlying chronic lung disease. ACT 112: Negative or not required by law. Electronically signed by: Mp Henry M.D. 08/12/2019 7:01 AM
[2019-08-12] MEDS: INSULIN ASPART 100 UNITS/ML 3 ML PEN SC SCH ×4 (08:33→21:12)
[2019-08-12] MEDS: TORSEMIDE 10 MG TAB PO SCH (08:36)
[2019-08-12] MEDS: FAMOTIDINE 20 MG TAB PO SCH (08:37)
[2019-08-12] MEDS: CLOPIDOGREL BISULFATE 75 MG TAB PO SCH (08:37)
[2019-08-12] MEDS: ATORVASTATIN 20 MG TAB PO SCH (08:37)
[2019-08-12] MEDS ORDERED: FUROSEMIDE 40 MG in SYRINGE 0 ML IV ONE ×2 (08:50→15:00)
[2019-08-12] MEDS ORDERED: NON-FORMULARY MEDICATION (Omeprazole 20 MG) PO SCH (09:00)
[2019-08-12] MEDS ORDERED: TORSEMIDE 10 MG TAB PO SCH (09:00)
[2019-08-12] MEDS ORDERED: METFORMIN HCL ER 500 MG TABCR PO SCH (09:00)
[2019-08-12] MEDS ORDERED: CLOPIDOGREL BISULFATE 75 MG TAB PO SCH (09:00)
[2019-08-12] MEDS ORDERED: RAMIPRIL 2.5 MG PO SCH (09:00)
[2019-08-12] MEDS ORDERED: METFORMIN HCL 500 MG TAB PO SCH (09:00)
[2019-08-12] MEDS ORDERED: ATORVASTATIN 20 MG TAB PO SCH (09:00)
[2019-08-12 09:37] LABS: Appearance Urine Clear (Clear); Bacteria Urine Automated Negative (Negative); Bilirubin Urine Negative (Negative); Blood Urine Negative (Negative); Color Urine Dark Yellow; Epithelial Cell Urine Auto >30 /lpf (0-5); Glucose Urine UA 1+ (Negative); Ketones Urine Trace (Negative); Leukocyte Esterase Urine 1+ (Negative); Nitrite Urine Negative (Negative); Protein Urine 2+ (Negative); RBC Urine Automated 0-4 /hpf (0-4); Urobilinogen Urine Negative (Negative)
[2019-08-12] MEDS: AMPICILLIN/SULBACTAM SOD 1,500 MG in 0.9 % SODIUM CHLORIDE 100 ML IV SCH ×2 (12:30→18:31)
[2019-08-12] MEDS ORDERED: COUGH DROP (SUGAR FREE) LOZ 24 LOZ/1 BOX BUCCAL PRN (14:01)
--- NOTE | 2019-08-12 17:21 | Hospitalist Progress Note ---
Date of Service August 12, 2019 Assessment & Plan (1) Hypoxia: most likely CHF vs aspiration vs possibly elements of both -treat underlying causes as below, continue supportive care -suspect underlying pulmonary HTN magnifies impact of the other hypoxia inducing problems -SARS-CoV2 pending given cough/hypoxia, although suspect CHF more likely dx (2) Right heart failure: clinically now also seems to have some L sided CHF given clinical appearance of pulmonary edema - HFpEF - but hypoxia seems disproportionate - likely due to aspiration and also more due to R CHF/pulm HTN -lasix, follow (3) Aspiration pneumonia: given leukocytosis and CXR - ?aspiration - but cognitively intact and does not appear high risk for aspiration - possibly just a one time event - agree continue unasyn for now, follow clincally, follow exams. consider speech but for now follow bedside swallowing clinically (4) Type 2 diabetes mellitus: sugars acceptable continue current care (5) HTN (hypertension): BP reasonable for the situation, follow on lasix (6) Elevated troponin: almost certainly demand from hypoxia, would not be surprising if he chronically runs a little elevated due to R heart strain - continue to trend (7) Pulmonary hypertension: oxygen support (8) DVT prophylaxis: lovenox (9) Discharge planning issues: telemetry for now once he improves then will need to assess functional status Admission and Anticipated Discharge Date Admission Date: August 12, 2019 Subjective sob better than last night. no fevers. ongoing cough. thought that lasix helped a good bit. notes in passing that he was actually getting more PADILLA for about 3-4 days prior to last night's events. clarifies the sugar issue - sugar was 89, but glucose monitor beeps at him all night if sugar isn't within a higher range. Review of Systems Review of Systems: All systems reviewed & are unremarkable except as noted in HPI & below Physical Exam Physical Exam: gen beau yap laying in bed does have a conversational cough fatigue but no distress. heent nc at mmm lungs diminished and maybe faintly coarse bibasilar R worse than L no rhonchi no wheeze good effort no stridor no accessory muscles. b/l LE edema visible. skin no rashes no pallor or ictreus Results & Data Results & [facility] ([facility]) Vital Signs (Past 12 Hours) Vital Signs Temp Pulse Pulse Resp BP Pulse Ox 08/12/19 16:20 97.7 F 91 H 22 147/85 H 96 08/12/19 15:31 96 H 18 91 08/12/19 14:19 97.7 F 95 H 18 139/83 95 08/12/19 11:31 81 20 91 08/12/19 11:18 97.9 F 91 H 19 124/77 94 08/12/19 09:45 90 08/12/19 07:20 72 78 20 99 08/12/19 07:18 97.5 F L 77 18 130/80 95 08/12/19 06:09 84 08/12/19 05:43 97.3 F L 83 24 124/80 95 PG Care Time/CCT Total # of Minutes Spent Total Time Spent with Patient: Total time spent is greater than 50% in coordination of care (as documented) at patient's floor/unit and/or counseling patient: Coding Level of Care Code None Diagnoses Hypoxia R09.02 Right heart failure I50.810 Aspiration pneumonia J69.0 Type 2 diabetes mellitus E11.9 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
[2019-08-12] MEDS ORDERED: INSULIN GLARGINE SOLOSTAR 100 UNITS/ML 3 ML PEN SC SCH (21:00)
[2019-08-12] MEDS ORDERED: LANTUS PER UNIT CHARGE SQ SCH (21:00)
--- NOTE | 2019-08-12 22:39 | Electrocardiogram Report ---
Test Reason : Blood Pressure : / mmHG Vent. Rate : 110 BPM Atrial Rate : 110 BPM P-R Int : 192 ms QRS Dur : 098 ms QT Int : 328 ms P-R-T Axes : 032 124 034 degrees QTc Int : 443 ms Sinus tachycardia Possible Left atrial enlargement Incomplete right bundle branch block Right ventricular hypertrophy with repolarization abnormality Nonspecific T wave abnormality Abnormal ECG When compared with ECG of 04-NOV-2017 12:01, Incomplete right bundle branch block is now Present Confirmed by Saul Polanco ([id number]) on 08/12/2019 10:39:50 PM Referred By: REFERRED SELF Confirmed By:Saul Polanco
[2019-08-13] MEDS: AMPICILLIN/SULBACTAM SOD 1,500 MG in 0.9 % SODIUM CHLORIDE 100 ML IV SCH ×3 (00:07→11:58)
[2019-08-13] MEDS: CLOPIDOGREL BISULFATE 75 MG TAB PO SCH (07:37)
[2019-08-13] MEDS: ENOXAPARIN INJ 40 MG/0.4 ML SYR SQ SCH (07:37)
[2019-08-13] MEDS: ATORVASTATIN 20 MG TAB PO SCH (07:37)
[2019-08-13] MEDS: TORSEMIDE 10 MG TAB PO SCH (07:37)
[2019-08-13] MEDS: FAMOTIDINE 20 MG TAB PO SCH (07:37)
[2019-08-13] MEDS: INSULIN ASPART 100 UNITS/ML 3 ML PEN SC SCH ×4 (08:36→20:41)
[2019-08-13 10:10] LABS: Basophils # (auto) 0.02 K/uL (0-0.2); Basophils % (auto) 0.1 %; Eosinophils # (auto) 0.03 K/uL (0-0.5); Eosinophils % (auto) 0.1 %; Hematocrit (blood only) 45.1 % (42-52); Hemoglobin 14.5 g/dL (14.0-18.0); Immature Granulocytes # (auto) 0.07 K/uL (0.00-0.02); Immature Granulocytes % (auto) 0.3 %; Lymphocytes % (auto) 13.6 %; Mean Corpuscular Hemoglobin 31.2 pg (25-34); Mean Corpuscular Hgb Conc 32.2 g/dL (32-36); Mean Platelet Volume 11.2 fL (7.4-10.4); Monocytes # (auto) 1.42 K/uL (0.11-0.59); Monocytes % (auto) 6.6 %; Neutrophils # (auto) 16.94 K/uL (1.4-6.5); Neutrophils % (auto) 79.3 %; Platelet Count 183 K/uL (130-400); RDW Coefficient of Variation 17.1 % (11.5-14.5); RDW Standard Deviation 59.5 fL (36.4-46.3); Red Blood Count 4.65 M/uL (4.7-6.1); White Blood Count 21.38 K/uL (4.8-10.8)
[2019-08-13 10:40] LABS: BUN Creatinine Ratio 29.5 (10-20); Calcium 8.5 mg/dl (8.5-10.1); Creatinine Clr Calc Pharmacy 46.5 ml/min; Est GFR (African American) 63.2; Est GFR (Non-African American) 54.6; Potassium 3.6 mmol/L (3.5-5.1)
[2019-08-13 10:46] LABS: Troponin I 0.871 ng/ml (0-0.045)
[2019-08-13] MEDS ORDERED: POTASSIUM CHLORIDE 20 MEQ TABCR PO STA (16:02)
[2019-08-13] MEDS ORDERED: FUROSEMIDE 40 MG in SYRINGE 0 ML IV ONE (16:15)
--- NOTE | 2019-08-13 16:32 | Hospitalist Progress Note ---
Date of Service August 13, 2019 Assessment & Plan (1) Hypoxia: acute and chronic respiratory failure with hypoxia present on admission most likely acute LV HFpEF vs aspiration vs probably elements of both -treat underlying causes as below, continue supportive care -suspect underlying pulmonary HTN magnifies impact of the other hypoxia inducing problems -SARS-CoV2 negative (2) Right heart failure: clinically now also seems to have some L sided CHF given clinical appearance of pulmonary edema -acute LV HFpEF - but hypoxia seems disproportionate - likely due to aspiration and also more due to R CHF/pulm HTN -continue to dose lasix, follow clinically, follow BMP -educated extensively on Na restriction - unfortunately he had seemed quite unaware of relationship between sodium and fluid retention, and even more unaware that a huge salt load can be ingested without ever touching a salt shaker (3) Aspiration pneumonia: given leukocytosis and CXR - ?aspiration - but cognitively intact and does not appear high risk for aspiration - possibly just a one time event - clinically mixed picture today - he feels better, oxygenation is progressing reasonably well, he has far less dyspnea; however, he has worse R lower lung findings on exam and CBC shows rising WBC -on unasyn - would doubt resistant bacteria but does not otherwise appear c/w MRSA etc --> for now will change to rocephin and flagyl for similar spectrum of coverage / different meds to get there --> follow (4) Type 2 diabetes mellitus: sugars had gotten a little high - and basal bolus was disproportionately basal -- tighten log (and reduce lantus a little) and continue to follow discussed outpt management with last A1c being just-above goal range set for him - discussed continuing home regimen for now but trying to eat less carbs (5) HTN (hypertension): BP overall acceptable, follow on lasix (6) Elevated troponin: almost certainly myocardial demand ischemia from hypoxia, would not be surprising if he chronically runs a little elevated due to R heart strain - has peaked, no sx. (7) Pulmonary hypertension: oxygen support (8) DVT prophylaxis: lovenox (9) Discharge planning issues: improving. continue current care for now Admission and Anticipated Discharge Date Admission Date: August 12, 2019 Subjective feeling better overall - still not back to baseline but better, and better enough he asks about criteria for going home. -breathing improving, less dyspnea. still on 60% hi flow but feeling better -cough less - still happens mostly w conversations but less, no significant sputum -no f/c/s -swelling seems to be improving but still present -wonders about diuretic dose after discharge - discuss diet - he notes quite adamantly and multiple times that he doesn't use salt shaker, then notes that he reads labels and a soup that he eats is only 180 calories per serving, when i discuss the sodium content i believe is in the soup he is discussing he was entirely unaware. discussed sodium restriction and rationale extensively Review of Systems Review of Systems: All systems reviewed & are unremarkable except as noted in HPI & below Physical Exam Physical Exam: gen aaox3 pleasant nad heent nc at mmm lungs faintly diminished bibasilar base R rales not present elsewhere no accessory muscles good effort skin no rashes no pallor or icterus neuro no focal deficits Results & Data Results & Data ([facility]) Vital Signs (Past 12 Hours) Vital Signs Temp Pulse Pulse Resp BP BP Pulse Ox 08/13/19 15:58 86 19 93 08/13/19 15:06 86 08/13/19 15:03 97.2 F L 87 20 117/76 92 08/13/19 12:01 97.3 F L 85 18 123/76 93 08/13/19 11:56 90 18 91 08/13/19 07:30 97.3 F L 82 18 128/78 91 08/13/19 07:05 83 18 95 PG Care Time/CCT Total # of Minutes Spent Total Time Spent with Patient: Total time spent is greater than 50% in coordination of care (as documented) at patient's floor/unit and/or counseling patient: Coding Level of Care Code 72642 Subseq Hosp Care Lvl 3 Diagnoses Hypoxia R09.02 Right heart failure I50.810 Aspiration pneumonia J69.0 Type 2 diabetes mellitus E11.9 Diabetes mellitus [facility] insulin use: with director of home health services use HTN (hypertension) I10 Hypertension type: essential hypertension Elevated troponin R79.89 Pulmonary hypertension I27.20 DVT prophylaxis Z29.9 Discharge planning issues Z02.9 (1) Type 2 diabetes mellitus Diabetes mellitus director of home health services insulin use: with director of home health services use (2) HTN (hypertension) Hypertension type: essential hypertension Qualified Code(s): I10 - Essential (primary) hypertension
[2019-08-13] MEDS: metroNIDAZOLE 500 MG/100 ML BAG IV SCH (16:50)
[2019-08-13] MEDS: cefTRIAXone SODIUM 2,000 MG in DEXTROSE 5% 50 ML IV SCH (16:51)
[2019-08-13] MEDS: INSULIN GLARGINE SOLOSTAR 100 UNITS/ML 3 ML PEN SC SCH (20:41)
--- NOTE | 2019-08-13 23:29 | Billing Data ---
Date of Service August 13, 2019 Coding Level of Care Code 51536 Initial Inpt Care Lvl 3
[2019-08-14] MEDS: metroNIDAZOLE 500 MG/100 ML BAG IV SCH ×3 (01:03→17:23)
[2019-08-14 05:59] LABS: Basophils # (auto) 0.03 K/uL (0-0.2); Basophils % (auto) 0.2 %; Eosinophils # (auto) 0.25 K/uL (0-0.5); Eosinophils % (auto) 1.8 %; Hematocrit (blood only) 44.6 % (42-52); Hemoglobin 14.2 g/dL (14.0-18.0); Immature Granulocytes # (auto) 0.06 K/uL (0.00-0.02); Immature Granulocytes % (auto) 0.4 %; Lymphocytes # (auto) 3.37 K/uL (1.2-3.4); Lymphocytes % (auto) 24.2 %; Mean Corpuscular Hemoglobin 31.1 pg (25-34); Mean Corpuscular Hgb Conc 31.8 g/dL (32-36); Mean Corpuscular Volume 97.8 fL (80-100); Mean Platelet Volume 10.5 fL (7.4-10.4); Monocytes # (auto) 1.07 K/uL (0.11-0.59); Monocytes % (auto) 7.7 %; Neutrophils # (auto) 9.17 K/uL (1.4-6.5); Neutrophils % (auto) 65.7 %; Platelet Count 182 K/uL (130-400); RDW Coefficient of Variation 17.4 % (11.5-14.5); RDW Standard Deviation 61.2 fL (36.4-46.3); Red Blood Count 4.56 M/uL (4.7-6.1); White Blood Count 13.95 K/uL (4.8-10.8)
[2019-08-14 06:26] LABS: BUN Creatinine Ratio 35.7 (10-20); Calcium 8.1 mg/dl (8.5-10.1); Creatinine Clr Calc Pharmacy 60.1 ml/min; Est GFR (African American) 85.1; Est GFR (Non-African American) 73.4; Potassium 3.3 mmol/L (3.5-5.1)
[2019-08-14] MEDS ORDERED: POTASSIUM CHLORIDE 20 MEQ TABCR PO STA ×2 (07:42→10:07)
[2019-08-14] MEDS: ATORVASTATIN 20 MG TAB PO SCH (08:46)
[2019-08-14] MEDS: CLOPIDOGREL BISULFATE 75 MG TAB PO SCH (08:47)
[2019-08-14] MEDS: FAMOTIDINE 20 MG TAB PO SCH (08:47)
[2019-08-14] MEDS: TORSEMIDE 10 MG TAB PO SCH (08:47)
[2019-08-14] MEDS: ENOXAPARIN INJ 40 MG/0.4 ML SYR SQ SCH (08:47)
[2019-08-14] MEDS: INSULIN ASPART 100 UNITS/ML 3 ML PEN SC SCH ×4 (08:50→20:58)
--- NOTE | 2019-08-14 10:09 | Hospitalist Progress Note ---
Date of Service August 14, 2019 Assessment & Plan (1) Hypoxia: acute and chronic respiratory failure with hypoxia present on admission most likely acute LV HFpEF vs aspiration vs probably elements of both -treat underlying causes as below, continue supportive care -suspect underlying pulmonary HTN magnifies impact of the other hypoxia inducing problems -SARS-CoV2 negative -weaning O2 slowly but successfully - baseline chronic hypoxic respiratory failure is 5L O2 support (2) Right heart failure: clinically now also seems to have some L sided CHF given clinical appearance of pulmonary edema -acute LV HFpEF - but hypoxia seems disproportionate - likely due to aspiration and also more due to R CHF/pulm HTN -still with some rales - additional lasix (and K) today; continue to follow clinically and follow BMP -educated extensively on Na restriction on 08/12 - reiterated today (3) Aspiration pneumonia: given leukocytosis and CXR - ?aspiration - but cognitively intact and does not appear high risk for aspiration - possibly just a one time event - WBC now improving again - continue ceftriaxone and flagyl. follow (4) Interstitial lung disease: (5) Type 2 diabetes mellitus: sugars improving - continue to titrate basal/bolus (6) HTN (hypertension): BP overall reasonable, follow on lasix (7) Dyslipidemia: atorvastatin (8) Pulmonary hypertension: oxygen support (9) Obesity (BMI 30.0-34.9): (10) DVT prophylaxis: lovenox (11) Discharge planning issues: PT/OT eval and treat, work towards hopeful goal of home, have to wean O2 further Admission and Anticipated Discharge Date Admission Date: August 12, 2019 Subjective feeling better each day - still needs to sit up - breathing is worse when he lays down - but breathing is better. coughing - more sputum now. hasn't really been able to move much due to high flow NC. otherwise no new complaints and generally feeling better. Review of Systems Review of Systems: All systems reviewed & are unremarkable except as noted in HPI & below Physical Exam Physical Exam: gen aao pleasant nad heent nc atmmm, lungs faint rales bibasilar today L>R no r/w good effort no accessory muscles no resp distress no conversational dyspnea. skin no rashes no pallor or icterus. neuro no focal deficits. Results & Data Results & Data ([facility]) Vital Signs (Past 12 Hours) Vital Signs Temp Pulse Pulse Resp BP Pulse Ox 08/14/19 08:25 89 22 90 08/14/19 07:23 98.1 F 77 22 115/77 93 08/14/19 03:36 79 18 91 08/14/19 03:04 97.7 F 81 17 102/67 90 08/14/19 01:00 91 H 08/13/19 23:47 87 20 93 08/13/19 23:38 97.9 F 87 18 101/62 92 08/13/19 23:05 86 20 92 PG Care Time/CCT Total # of Minutes Spent Total Time Spent with Patient: Total time spent is greater than 50% in coordination of care (as documented) at patient's floor/unit and/or counseling patient: Coding Level of Care Code 79870 Subseq Hosp Care Lvl 3 Diagnoses Hypoxia R09.02 Right heart failure I50.810 Aspiration pneumonia J69.0 Interstitial lung disease J84.9 Type 2 diabetes mellitus E11.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
[2019-08-14] MEDS ORDERED: FUROSEMIDE 40 MG in SYRINGE 0 ML IV ONE (10:30)
[2019-08-14] MEDS: ALBUT/IPRATROP 3MG/0.5MG NEB 3 ML VIAL NEB SCH ×4 (11:25→23:18)
[2019-08-14] MEDS: cefTRIAXone SODIUM 2,000 MG in DEXTROSE 5% 50 ML IV SCH (17:23)
[2019-08-14] MEDS: INSULIN GLARGINE SOLOSTAR 100 UNITS/ML 3 ML PEN SC SCH (20:59)
[2019-08-15] MEDS: metroNIDAZOLE 500 MG/100 ML BAG IV SCH ×4 (00:01→23:59)
[2019-08-15] MEDS ORDERED: POLYETHYLENE (MIRALAX) 17 GM PACK PO PRN (04:33)
[2019-08-15] MEDS: ALBUT/IPRATROP 3MG/0.5MG NEB 3 ML VIAL NEB SCH ×4 (07:23→19:27)
[2019-08-15] MEDS: FAMOTIDINE 20 MG TAB PO SCH (08:03)
[2019-08-15] MEDS: ATORVASTATIN 20 MG TAB PO SCH (08:03)
[2019-08-15] MEDS: CLOPIDOGREL BISULFATE 75 MG TAB PO SCH (08:03)
[2019-08-15] MEDS: TORSEMIDE 10 MG TAB PO SCH (08:03)
[2019-08-15] MEDS: ENOXAPARIN INJ 40 MG/0.4 ML SYR SQ SCH (08:04)
[2019-08-15 08:18] LABS: Basophils # (auto) 0.05 K/uL (0-0.2); Basophils % (auto) 0.4 %; Eosinophils # (auto) 0.26 K/uL (0-0.5); Eosinophils % (auto) 2.3 %; Hematocrit (blood only) 45.1 % (42-52); Hemoglobin 14.3 g/dL (14.0-18.0); Immature Granulocytes # (auto) 0.04 K/uL (0.00-0.02); Immature Granulocytes % (auto) 0.3 %; Lymphocytes # (auto) 3.21 K/uL (1.2-3.4); Lymphocytes % (auto) 27.9 %; Mean Corpuscular Hemoglobin 30.8 pg (25-34); Mean Corpuscular Hgb Conc 31.7 g/dL (32-36); Mean Corpuscular Volume 97.2 fL (80-100); Mean Platelet Volume 10.5 fL (7.4-10.4); Monocytes # (auto) 1.12 K/uL (0.11-0.59); Monocytes % (auto) 9.7 %; Neutrophils # (auto) 6.83 K/uL (1.4-6.5); Neutrophils % (auto) 59.4 %; Platelet Count 176 K/uL (130-400); RDW Coefficient of Variation 17.2 % (11.5-14.5); Red Blood Count 4.64 M/uL (4.7-6.1); White Blood Count 11.51 K/uL (4.8-10.8)
[2019-08-15 08:45] LABS: Calcium 8.6 mg/dl (8.5-10.1); Creatinine Clr Calc Pharmacy 64.1 ml/min; Est GFR (Non-African American) 81.1; Potassium 3.6 mmol/L (3.5-5.1)
[2019-08-15] MEDS: INSULIN ASPART 100 UNITS/ML 3 ML PEN SC SCH ×4 (08:46→21:54)
[2019-08-15] MEDS ORDERED: POTASSIUM CHLORIDE 20 MEQ TABCR PO STA (12:16)
[2019-08-15] MEDS ORDERED: FUROSEMIDE 40 MG in SYRINGE 0 ML IV ONE (12:45)
[2019-08-15] MEDS: cefTRIAXone SODIUM 2,000 MG in DEXTROSE 5% 50 ML IV SCH (16:59)
--- NOTE | 2019-08-15 17:05 | Hospitalist Progress Note ---
Date of Service August 15, 2019 Assessment & Plan (1) Hypoxia: acute and chronic respiratory failure with hypoxia present on admission most likely acute LV HFpEF vs aspiration vs probably elements of both -treat underlying causes as below, continue supportive care -suspect underlying pulmonary HTN magnifies impact of the other hypoxia inducing problems -SARS-CoV2 negative -weaning O2 slowly but successfully - baseline chronic hypoxic respiratory failure is 5L O2 support (and may need equipment that allows up to 6L when he gets closer to discharge) (2) Right heart failure: clinically now also seems to have some L sided CHF given clinical appear ance of pulmonary edema -acute LV HFpEF - but hypoxia seems disproportionate - likely due to aspiration and also more due to R CHF/pulm HTN -still with some rales - additional lasix (and K) once againtoday; continue to follow clinically and follow BMP -educated extensively on Na restriction on 08/12 - reiterated today again (3) Aspiration pneumonia: given leukocytosis and CXR - ?aspiration - but cognitively intact and does not appear high risk for aspiration - possibly just a one time event - WBC improving nicely - continue ceftriaxone and flagyl. follow (4) Interstitial lung disease: (5) Type 2 diabetes mellitus: sugars improving - continue to titrate basal/bolus (tighten carb ratio today) (6) HTN (hypertension): BP overall adequate, follow on lasix (7) Dyslipidemia: atorvastatin (8) Pulmonary hypertension: oxygen support (9) Obesity (BMI 30.0-34.9): (10) DVT prophylaxis: lovenox (11) Discharge planning issues: PT/OT eval and treat, work towards hopeful goal of home, have to wean O2 further (may need new equipment at home) Admission and Anticipated Discharge Date Admission Date: August 12, 2019 Subjective feeling a little better was able to sleep better last night and not even very propped up. ongoing improvement in breathing and in ability to move without as much dypsnea - still needing high flow NC. no f/c/s. rediscussed sodium restriction, etc Review of Systems Review of Systems: All systems reviewed & are unremarkable except as noted in HPI & below Physical Exam Physical Exam: gen aao pleasant nad, sitting up with legs off side of bed. heent nc at mmm. lungs faintly scattered rales maybe R sl more than L but fairly symmetric no rhonchi no wheeze no accessory muscles. skin no rashes no pallor or icterus. ongoing LE edema Results & Data Results & Data ([facility]) Vital Signs (Past 12 Hours) Vital Signs Temp Pulse Pulse Resp BP BP Pulse Ox 08/15/19 16:04 97.7 F 107 H 20 125/81 91 08/15/19 15:54 100 H 08/15/19 14:53 99 H 20 93 08/15/19 11:56 97.7 F 93 H 20 144/79 H 90 08/15/19 10:52 96 H 20 91 08/15/19 07:33 97 08/15/19 07:25 81 18 97 08/15/19 07:22 97.5 F L 78 81 22 118/75 95 PG Care Time/CCT Total # of Minutes Spent Total Time Spent with Patient: Total time spent is greater than 50% in coordination of care (as documented) at patient's floor/unit and/or counseling patient: Coding Level of Care Code 15982 Subseq Hosp Care Lvl 3 Diagnoses Hypoxia R09.02 Right heart failure I50.810 Aspiration pneumonia J69.0 Interstitial lung disease J84.9 Type 2 diabetes mellitus E11.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
[2019-08-15] MEDS: INSULIN GLARGINE SOLOSTAR 100 UNITS/ML 3 ML PEN SC SCH (21:56)
[2019-08-16 06:14] LABS: BUN Creatinine Ratio 28.8 (10-20); Calcium 8.7 mg/dl (8.5-10.1); Est GFR (African American) 88.4; Est GFR (Non-African American) 76.3; Potassium 4.2 mmol/L (3.5-5.1)
[2019-08-16] MEDS: ALBUT/IPRATROP 3MG/0.5MG NEB 3 ML VIAL NEB SCH ×4 (07:13→19:41)
[2019-08-16] MEDS: TORSEMIDE 10 MG TAB PO SCH (08:09)
[2019-08-16] MEDS: ATORVASTATIN 20 MG TAB PO SCH (08:10)
[2019-08-16] MEDS: CLOPIDOGREL BISULFATE 75 MG TAB PO SCH (08:10)
[2019-08-16] MEDS: FAMOTIDINE 20 MG TAB PO SCH (08:10)
[2019-08-16] MEDS: ENOXAPARIN INJ 40 MG/0.4 ML SYR SQ SCH (08:10)
[2019-08-16] MEDS: metroNIDAZOLE 500 MG/100 ML BAG IV SCH (08:11)
[2019-08-16] MEDS: INSULIN ASPART 100 UNITS/ML 3 ML PEN SC SCH ×5 (08:13→21:15)
--- NOTE | 2019-08-16 13:13 | Family Medicine Progress Note ---
Date of Service August 16, 2019 Assessment & Plan (1) Hypoxia: 78 yo M with PMH pulm HTN, right sided heart failure, dyslipidemia, interstitial lung disease admitted for hypoxemic respiratory failure 2/2 aspiration pneumonia in the setting of chronic ILD. Acute on chronic respiratory failure secondary to aspiration pneumonia vs. pulmonary HTN: - CXR showing left lower lobe opacity likely pneumonitis vs pneumonia secondary to aspiration event. - Lactate elevated at 4.3 admission, has trended down. - WBC elevated at 16.15 on admission; 11.5 today. - Empirically treated with Unasyn on admit however transitioned to ceftriaxone/Flagyl, currently on day 4 of treatment. Will transition to Augmentin 875mg BID for a total of 7 days of antibiotic therapy. - COVID 19 testing negative. - Element of right heart failure, as well as Hx pulmonary HTN 2/2 ILD likely contributory given loss of 6kg since arrival, likely fluid 2/2 diuretics. - Home Torsemide 10mg daily increased to 20mg daily due to continued peripheral edema, without FELICITAS. - Albuterol Nebs QIDR scheduled; supplemental O2 to saturation >90%. - Case Management in contact with oxygen supply company regarding services for home upon discharge. - 2 Step ordered for AM; pt is insistent upon going home tomorrow however will see how he does overnight and with PT tomorrow. - Continue oxygen support with goal to wean patient to baseline 5LNC for eventual discharge home with supplemental O2. - Has appointment with Pulmonology scheduled for 09/17; will consider consult if patient's respiratory status does not continue to improve. Pulm HTN with Right Heart Failure: - Last Echo 05/2019 with normal LV function, severe RV dilation, moderate TR, RVP overload. - Continue ramipril 2.5mg daily. - Torsemide 20mg daily as above. - Urged to restrict fluid intake both in the hospital and at home to about 1800mL/day. Syncopal event: - Pt reports syncopal event on day of his admission prior to arrival via EMS; was a few seconds, did not hit his head. - Telemetry monitoring has been sinus in 70s during daytime, overnight sinus with 1st degree block with HR 80s. - Per EMS on arrival patient was hypoxic in 70s, with BSG 400s. Pt had been sitting for some time before standing and having the syncopal event. - syncopal event possibly due to arrhythmia vs. hyper/hypoglycemia vs. orthostatic hypotension. DM2: - Hgb A1c 8.2 in May. - Metformin 500 held. - Insulin aspart: Goal BSG Range: Low 120 mg/dL, High 180mg/dL. Correction Factor: 25mg/dL/unit. INS:CHO Ratio: 1unit per 6gms CHO consumed. BSGs ACHS if eating, q6h if npo. - Lantus 40u at bedtime. - Diabetic education consult ordered. Pt is unclear on when to take snacks; i.e. what sugar is too low and should be treated. Has Dexcom G6. Elevated Troponin: - 0.077 on admission, did not have further elevation. - Likely secondary to increased myocardial demand with coughing fits and hypoxia. - Denies any chest pain, normal EKG. - Continue home Plavix. DVT ppx: Lovenox 40mg SQ daily FEN/GI: DM2, low Sodium, Fluid Restriction 1800cc Code status: full code Dispo: Med/Surg with Tele; PT/OT to continue evaluating patient with goal of discharge home (2) Aspiration pneumonia: (3) Dyslipidemia: (4) Obesity (BMI 30.0-34.9): (5) Right heart failure: (6) Interstitial lung disease: (7) Type 2 diabetes mellitus: (8) HTN (hypertension): (9) Pulmonary hypertension: Admission and Anticipated Discharge Date Admission Date: August 12, 2019 Supervising Physician Co-Signing Physician Notes I personally examined the patient and verified all banks points of history and exam, discussed case, and agree with decision making with Dr. Landeros with the following additions/exceptions: Patient feeling much improved and was weaned from high flow nasal cannula this afternoon to nasal cannula at 5 L however he did desaturate to 77% with exertion with physical therapy today while on 5 L. He did recover back to 90% after a minute and half of rest. He is adamant about leaving tomorrow and feels overall much improved. Vitals reviewed NAD RRR, no MGR Still with some peripheral edema that is trace pitting on the legs bilaterally Lungs with fine crackles to the lower and middle lung nathan bilaterally, no wheezes 78-year-old male with history of ILD, severe pulmonary hypertension and right- sided heart failure, HTN, DM 2, HL, here with acute on chronic respiratory failure with hypoxia and aspiration pneumonia with a syncopal episode. Also with acute on chronic right-sided heart failure with volume overload Much improved with diuresis and treatment for pneumonia also likely contributing to improvement Increase torsemide to 20 mg daily, no IV Lasix needed today Hopeful to wean down to oxygen level that he can tolerate at home even with exertion as he is adamant about leaving tomorrow We will order a two-step walk test in the morning to see if he is able to do this on 5-6 L nasal cannula Subjective ON had one episode of hypoxia to 89% which quickly resolved without adjustment to his HFNC. Still on HFNC but reports subjectively feeling much better today, able to get out of bed without as much tiredness and shortness of breath. Eating fairly well. No subjective fevers or chills. No orthopnea, though does feel he can "clear his throat" better while sitting up. No change in taste or smell, no GI complaints. Former smoker, for about 30 years prior to quitting about 40 years ago. Reports that to prevent his sugar from going low at night he will sometimes have a few tablespoons of maple syrup, and soon after having this at home had what the patient believes is a syncopal event which he believes could account for "food going down the wrong pipe". He does not recall what his BSG was prior to taking in the maple syrup. Review of Systems Constitutional: no fever and no chills Respiratory: + dyspnea; no cough and no wheezing Cardiovascular: no chest pain, no palpitations and no edema Gastrointestinal: no abdominal pain, no nausea, no vomiting, no constipation and no diarrhea/loose stools Genitourinary: no dysuria Physical Exam Constitutional: WD/WN, vitals as above Eyes: + anicteric sclerae Respiratory: normal respiratory effort; does not use accessory muscles and no cough Auscultation: + rales (scattered throughout); no wheezes Cardiovascular: Rate/Rhythm: regular rate and regular rhythm Heart Sounds: no murmur Extremities: + edema (1+) Gastrointestinal (Abdomen): normal bowel sounds, soft, nontender, no hepatosplenomegaly Skin: no rashes, warm and dry Psychiatric: A+Ox3, euthymic affect Results & Data ([facility]) Vital Signs (Past 12 Hours) Vital Signs Temp Pulse Pulse Resp BP BP Pulse Ox 08/16/19 11:22 36.6 C 93 H 20 118/75 92 08/16/19 11:17 87 18 95 08/16/19 08:07 36.4 C L 57 L 20 110/62 92 08/16/19 07:20 79 08/16/19 07:16 81 18 89 L 08/16/19 03:29 82 18 95 08/16/19 03:18 36.4 C L 83 20 111/70 94 Resident Activity Tracking Resident Involvement: Resident Care Provided Care Provided: Adult Hospital Medicine (1) Type 2 diabetes mellitus 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
[2019-08-16] MEDS ORDERED: TORSEMIDE 10 MG TAB PO ONE (15:00)
[2019-08-16] MEDS: AMOXICILLIN/CLAVULANATE 875 MG TAB PO SCH (17:03)
--- NOTE | 2019-08-16 19:39 | Billing Data ---
Date of Service August 16, 2019 Coding Level of Care Code 81380 Subseq Hosp Care Lvl 3
[2019-08-16] MEDS ORDERED: PHARMACY GLYCEMIC MGMT CONSULT PRN (20:48)
[2019-08-16] MEDS: INSULIN GLARGINE SOLOSTAR 100 UNITS/ML 3 ML PEN SC SCH (20:59)
[2019-08-17 05:49] LABS: Basophils # (auto) 0.04 K/uL (0-0.2); Basophils % (auto) 0.3 %; Eosinophils # (auto) 0.55 K/uL (0-0.5); Eosinophils % (auto) 4.2 %; Hematocrit (blood only) 49.1 % (42-52); Hemoglobin 16.7 g/dL (14.0-18.0); Immature Granulocytes # (auto) 0.07 K/uL (0.00-0.02); Immature Granulocytes % (auto) 0.5 %; Lymphocytes # (auto) 2.22 K/uL (1.2-3.4); Lymphocytes % (auto) 16.8 %; Mean Corpuscular Hemoglobin 32.8 pg (25-34); Mean Corpuscular Volume 96.5 fL (80-100); Mean Platelet Volume 10.2 fL (7.4-10.4); Monocytes % (auto) 9.8 %; Neutrophils # (auto) 9.05 K/uL (1.4-6.5); Neutrophils % (auto) 68.4 %; Platelet Count 200 K/uL (130-400); RDW Coefficient of Variation 16.4 % (11.5-14.5); RDW Standard Deviation 58.5 fL (36.4-46.3); Red Blood Count 5.09 M/uL (4.7-6.1); White Blood Count 13.23 K/uL (4.8-10.8)
[2019-08-17 06:21] LABS: BUN Creatinine Ratio 26.3 (10-20); Calcium 9.7 mg/dl (8.5-10.1); Creatinine Clr Calc Pharmacy 49.3 ml/min; Est GFR (African American) 69.3; Est GFR (Non-African American) 59.8; Potassium 3.7 mmol/L (3.5-5.1)
[2019-08-17] MEDS: ALBUT/IPRATROP 3MG/0.5MG NEB 3 ML VIAL NEB SCH ×2 (07:00→11:22)
[2019-08-17] MEDS: ATORVASTATIN 20 MG TAB PO SCH (08:06)
[2019-08-17] MEDS: CLOPIDOGREL BISULFATE 75 MG TAB PO SCH (08:07)
[2019-08-17] MEDS: FAMOTIDINE 20 MG TAB PO SCH (08:07)
[2019-08-17] MEDS: AMOXICILLIN/CLAVULANATE 875 MG TAB PO SCH (08:08)
[2019-08-17] MEDS ORDERED: TORSEMIDE 10 MG TAB PO SCH (09:00)
[2019-08-17] MEDS: INSULIN ASPART 100 UNITS/ML 3 ML PEN SC SCH ×2 (09:15→12:44)
[2019-08-17] MEDS: ENOXAPARIN INJ 40 MG/0.4 ML SYR SQ SCH (09:16)
--- NOTE | 2019-08-17 09:26 | Discharge Summary ---
Date of Service August 17, 2019 Admission HPI Per Admitting Provider 78 yo M with PMH pulm HTN, right sided heart failure, interstitial lung disease, dyslipidemia brought to the ED by ambulance for peripheral cyanosis. Per patient, he measured his blood sugar prior to bed and found it to be "low" in the 100s. He proceeded to eat some sugar packets and raisins, which didn't increase his blood sugar. He then proceeded to pour some pancake syrup in his mouth to try and increase his BSG. He remembers walking over to his sink after this, and then woke up on the floor sometime later. He denies hitting his head on anything, but doesn't remember passing out or falling asleep. Upon getting up, he had a severe cough but was able to ambulate back to his bedroom, whereupon he noticed his hands were blue and he called 911. He denies any recent fevers or chills, night sweats, sick contacts, dyspnea prior to the aspiration event, chest pain, palpitations. He currently still has a strong cough but denies any pain with taking a deep breath or positional improvement in breathing. He attests to feeling very warm despite not having any blankets on him and having a normal temperature. Primary Care Provider: Mp Yeboah MD Admission Exam Per Admitting Provider Constitutional: + acute distress, + ill appearing and cooperative reddened face secondary to frequent strong coughs Neck: normal visual inspection Respiratory: + labored breathing and + cough; + abnormal respiratory effort, no respiratory distress, no retractions, + not able to speak in complete sentence and no audible wheezes Auscultation: lungs clear to auscultation bilaterally and + rhonchi; no crackles, no rales and no wheezes Cardiovascular: Rate/Rhythm: regular rhythm and + tachycardic Heart Sounds: normal S1 and normal S2; no gallop, no murmur and no cardiac rub Vessels: posterior tibial pulses present Extremities: normal capillary refill, + pedal edema and + edema Gastrointestinal (Abdomen): Inspection/Auscultation: abdomen normal to inspection and normal bowel sounds; abdomen not distended Percussion/Palpation: abdomen soft; abdomen nontender, no guarding, abdomen not rigid and no abdominal mass Skin: + skin tightening and + nails discolored stasis dermatitis changes of skin at lower legs bilaterally Principal Diagnosis Acute on chronic respiratory failure secondary to aspiration pneumonia vs. pulmonary HTN, Acute on chronic right sided heart failure Discharge Exam Constitutional WD/WN, vitals as above Respiratory normal respiratory effort, lungs clear to auscultation Cardiovascular RRR, no murmur, no edema Gastrointestinal (Abdomen) normal bowel sounds, soft, nontender, no hepatosplenomegaly Skin no rashes, warm and dry Psychiatric A+Ox3, euthymic affect Discharge Data Allergies Allergy/AdvReac Type Severity Reaction Status Date / Time cyanocobalamin (vitamin B12) Allergy Mild Rash Verified 08/12/19 01:30 niacinamide Allergy Unknown RASH Verified 08/12/19 01:30 pyridoxine Allergy Unknown RASH Verified 08/12/19 01:30 riboflavin (vitamin B2) Allergy Unknown RASH Verified 08/12/19 01:30 tetracycline Allergy Unknown RASH Verified 08/12/19 01:30 thiamine (vitamin B1) Allergy Unknown RASH Verified 08/12/19 01:30 Consultations 08/12/19 03:58 ED Decision to Admit Stat Hospital Course (1) Dyslipidemia: 78 yo M with PMH pulm HTN, right sided heart failure, dyslipidemia, interstitial lung disease admitted for hypoxemic respiratory failure 2/2 aspiration pneumonia in the setting of chronic ILD. Acute on chronic respiratory failure secondary to aspiration pneumonia vs. pulmonary HTN and acute on chronic right sided heart failure: - CXR showing left lower lobe opacity likely pneumonitis vs pneumonia secondary to aspiration event. - Lactate elevated at 4.3 admission, trended down throughout admission. - Empirically treated with Unasyn on admission however transitioned to ceftriaxone/Flagyl, and then to Augmentin 875mg BID for a total of 7 days of antibiotic therapy (to complete 08/20/2019). A prescription for this was sent to his pharmacy. Also given albuterol nebs QIDR scheduled. - WBC elevated at 16.15 on admission; elevated still at 13.23 today however upon chart review patient is consistently elevated since 2014 in the 11-13 range, perhaps 2/2 inflammation from his chronic ILD. Did not perform a peripheral smear on this patient, and his spleen was normal in size. - COVID 19 testing negative. - Element of right heart failure, as well as Hx pulmonary HTN 2/2 ILD likely contributory given loss of 6kg since arrival, likely fluid 2/2 diuretics. - Home Torsemide 10mg daily increased to 20mg daily this admission due to continued peripheral edema, without FELICITAS despite this increase.Will continue this following discharge. - 2 Step this morning showed pt is stable with 5LNC at rest and 6LNC with exertion. Provided prescription for this and to receive his new condenser from [employer] shortly following discharge to home. - Has appointment with Pulmonology scheduled for 09/17 which he will keep. Pulm HTN with Right Heart Failure: - Last Echo 05/2019 with normal LV function, severe RV dilation, moderate TR, RVP overload. -he was given intermittent IV lasix with good success and weight loss, diuresis - Continue ramipril 2.5mg daily at home. - Torsemide 20mg daily as above. - Urged to restrict fluid intake both in the hospital and at home to about 1800mL/day. Educated on low sodium diet, reading food labels. - Would be of benefit to include a BMP about a week following discharge after TCM visit to follow kidney function. Syncopal event: - Pt reports syncopal event on day of his admission prior to arrival via EMS; was a few seconds, did not hit his head. - Telemetry monitoring has been sinus in 70s during daytime, overnight sinus with 1st degree block with HR 80s. - Per EMS on arrival patient was hypoxic in 70s, with BSG 400s. Pt had been sitting for some time before standing and having the syncopal event. - syncopal event likely secondary to hyper/hypoglycemic event vs. orthostatic hypotension. - Educated patient on warning signs of syncope, to stay properly hydrated within his fluid restriction guidelines, and to check his sugars and be seated or lying down when he has symptoms suggestive of hypoglycemia. - If patient has further syncopal episodes that cannot be explained by hypotension or glycemic events, would benefit from 30 day Holter monitor to evaluate for arrhythmias. DM2: - Hgb A1c 8.2 in May. - Metformin 500 held this admission. - Diabetic education consult ordered. Pt was unclear on when to take snacks; i.e. what sugar is too low and should be treated. Has Dexcom G6. - Pt will return to home regimen of SSI and 45u Lantus at bedtime with metformin PO. Elevated Troponin: - 0.077 on admission, did not have further elevation. - Likely secondary to increased myocardial demand with coughing fits and hypoxia. - Denies any chest pain, normal EKG. - Continue home Plavix. FEN/GI: Educated on DM2, low Sodium, Fluid Restriction 1800cc diet. Sent home with plastic fluid cup with mL marked to measure fluids daily. Code status: Full code Dispo: Home with home health services. Pt will have Home PT/OT and nursing to visit to assess breathing (2) Obesity (BMI 30.0-34.9): (3) Right heart failure: (4) Interstitial lung disease: (5) Type 2 diabetes mellitus: (6) HTN (hypertension): (7) Pulmonary hypertension: (8) Hypoxia: (9) Aspiration pneumonia: Total Time Total Time Spent Total Time Spent (In Minutes): see attending attestation. Discharge Plan Discharge Items Patient Disposition: Home - Home Health Services Reason For Visit: HYPOXIA Discharge Diagnosis: aspiration pneumonia, right heart failure Activity: Resume your previous activity Non-emergency contact: Primary Care Provider Call non-emergency contact if: you have any medication questions, your symptoms worsen and your temperature is above 101 Follow-up/Referrals: Mp Yeboah MD [Primary Care Provider] - Diet: Carb Consistent or DM2 and Low Sodium (2gm) Fluids: 1800ml (7 cups) Addtl Attending Provider Instructions: You were admitted to the hospital via an ambulance for an episode of passing out and low oxygen levels. You were found on chest xray to have a pneumonia in your lung, likely due to food going down the wrong tube when you passed out. We started you on antibiotics and gave you extra oxygen and your symptoms started to improve. Please find your recommendations for discharge below: 1) You will require a little bit more oxygen with exertion after discharge. Our respiratory team recommends 5 liters of oxygen at rest, and 6 liters of oxygen with exertion such as walking in the grocery store or around your house. The supplier from [employer] will come to your house shortly after discharge to supply you with what you need for these new settings. 2) Please keep your follow up appointments with the [facility]ender and Ruby Crow iabetic Educator for August. You will be contacted by Dr. Yeboah's office regarding a follow up appointment within a week of discharge. 3) Continue your home regimen of insulin that you were on before (your sliding scale with meals, and 45 units at bedtime). 4) If you have symptoms such as dizziness, shortness of breath, chest pains or palpitations, nausea or vomiting, please check your sugar prior to taking your snack with your Dexcom to make sure your sugar is low and you need the snack. Use the recommendations from the parent educator for how much of a snack to have when your sugar is low. 5) I have sent in a prescription for your new Torsemide pill. You will take two 10 milligram pills daily, for a total of 20 milligrams per day for your dose. Dr. Yeboah's office will check your kidney function with labwork in about a week to make sure that your dose does not need to be changed. 6) You will continue taking your Augmentin, the antibiotic for your lung infection. [facility] You will take one pill every twelve hours with meals, starting with dinner tonight. You should complete this antibiotic until all 5 pills are gone regardless of how you feel. Pending Studies at Discharge: No Stand-Alone Forms: [facility], Smoking Cessation Medications and DC Order Prescriptions: New torsemide 10 mg tablet 20 mg PO QAM Qty: 30 RF: 0 amoxicillin-pot clavulanate [Augmentin] 875-125 mg Tablet 1 tab PO BIDM Qty: 5 RF: 0 Continued omeprazole 20 mg tablet,delayed release (DR/EC) 20 mg PO QAM Qty: 90 RF: 3 ramipril 2.5 mg capsule 2.5 mg PO QAM Qty: 90 RF: 4 (DME) pen needle, diabetic [BD Ultra-Fine Shelly Pen Needle] 32 gauge x 5/32" needle See Dose Instructions .ROUTE .MEDSUPPLY Qty: 400 RF: 3 Novolog Flexpen U-100 Insulin 100 unit/mL (3 mL) insulin pen See Rx Instructions .ROUTE .COMPLEX 90 Days Qty: 3 RF: 3 hydrocortisone [Proctosol HC] 2.5 % cream with perineal applicator 1 appln [place] BID PRN (Reason: hemorrhoids) Qty: 28.35 RF: 1 (DME) Miscellaneous Pulmonary Supply Misc See Rx Instructions .ROUTE .MEDSUPPLY Qty: 1 RF: 0 clopidogrel 75 mg tablet 75 mg PO QAM Qty: 90 RF: 1 potassium 99 mg Tablet 99 mg PO QAM RF: 0 cholecalciferol (vitamin D3) [Vitamin D3] 2,000 unit Tablet 2,000 unit PO QAM RF: 0 amoxicillin 500 mg tablet 2,000 mg PO UD PRN (Reason: prior to dental appointment) RF: 0 atorvastatin 20 mg tablet 20 mg PO DAILY RF: 0 metformin 500 mg tablet extended release 24 hr 500 mg PO DAILY RF: 0 Discontinued Lantus U-100 Insulin 100 unit/mL solution 55 units SUBCUT HS RF: 0 torsemide 10 mg tablet 10 mg PO DAILY Qty: 90 RF: 3 No Action Lantus U-100 Insulin 100 unit/mL solution 45 units SUBCUT HS RF: 0 Discharge Orders: Discharge Order (Routine); Ordered 08/17/19 Ordered By: Tiara Garcia/Other Patient Handouts: Diabetes and Heart Disease, Hypoglycemia, Diabetes Healthy Meals, Heart Failure Making Changes to Your Diet Admission Data Admit Date/Time: 08/12/19 03:33 Attending Provider: Anita Simon Admit Provider: Jack Velasquez Primary Care Provider: Mp Yeboah Other Providers: Francis Martinez ; [facility],Home Healthcare Other Interventions: Discharge Summary Assessment (RN) Last Done: 08/17/19 12:35 DC Date/Time DO NOT enter until pt leaves facility: 08/17/19 13:33 Supervising Physician Co-Signing Physician Notes I personally examined the patient and verified all banks points of history and exam, discussed case, and agree with decision making with Dr. Landeros with the following additions/exceptions: Patient feeling much improved and walked the halls today and only required 6LNC with exertion with POx 90%. is eating and drinking, understands fluid restriction and ready to go home Vitals reviewed NAD RRR, no MGR Lungs with fine crackles to the lower and middle lung nathan bilaterally, no wheezes Ext no edema Skin no rashes 78-year-old male with history of ILD, severe pulmonary hypertension and right- sided heart failure, HTN, DM 2, HL, here with acute on chronic respiratory failure with hypoxia and aspiration pneumonia with a syncopal episode. Also with acute on chronic right-sided heart failure with volume overload Much improved with diuresis and treatment for pneumonia also likely contributing to improvement Increase torsemide to 20 mg daily for now nad can be adjusted by PCP as needed Dc to home on 5-6LNC with rest and exertion, respectively Close follow up Resident Activity Tracking Resident Involvement: Resident Care Provided Care Provided: Adult Hospital Medicine
--- NOTE | 2019-08-18 12:35 | Billing Data ---
Date of Service August 17, 2019 Coding Level of Care Code D/C Day Management >30 mins
== END 2019-08-17 13:33 | disposition home health service (06) | DRG 177 ==
LOC: ED 01:15 → 2N 03:33 → SUATTDRO 03:33 → 2N 04:03 → 2S 10:03 → 2N 22:15

== ENCOUNTER 2020-09-15 15:05 | Observation (INO) ==
[~2020-09-15 15:05] MED LIST changes: -AMOX500C3 PO; -ATOR-22 PO; -CHOL100041 PO; -CLIN1LOT TOP; -CLOP1TAB15 PO; -CYAN10005 PO; -HYDR25SU20 PR; +MAGNESIUM SULFATE / D5W 1 GM/100 ML BAG IV STA; -METF500T5 PO; -NVLGI7030 SC; -OMEP20CA9 PO; -POTASSIUM PO; -RAMI2.5C PO
--- NOTE | 2020-09-15 15:59 | Emergency Department Note ---
History of Present Illness General Chief complaint: Swelling/Edema to Extremity Stated complaint: SWELLING IN BOTH LEGS Time Seen by Provider: 09/15/20 15:26 Source: patient Mode of arrival: wheelchair Limitations: no limitations History of Present Illness Provider complaint: LE edema Onset (ago): day(s) Location: lower extremity Radiation: non-radiation Maximum Pain Intensity: 0 This is an 79-year-old male who was referred to the emergency room for new onset lower extremity edema. Patient states he had not noticed any edema earlier this week. Patient with chronic pulmonary issues and does follow with Dr. Moran. Patient was being seen as an outpatient and due to the concern for lower extremity edema, they contacted Dr. Moran who suggested he come to the emergency department for additional evaluation. Patient does take torsemide daily. He denies any prior history of kidney problems or congestive heart failure. No other new medications recently, states 2 of his medications have been decreased in dosing. Patient is on chronic home oxygen at 8 L/min. Patient denies any accompanying pain or paresthesias to the lower extremities. Patient denies noting any swelling anywhere else. Patient denies any use of anticoagulation. Pt seen during a time of high acuity and national emergency pandemic while we aring PPE. Home Medications Medication Instructions Recorded Confirmed Type cholecalciferol (vitamin D3) 2,000 unit PO QAM 07/06/18 09/15/20 History [Vitamin D3] amoxicillin 500 mg tablet 2,000 mg PO UD PRN tab 02/05/19 09/15/20 History meclizine 12.5 mg tablet 12.5 mg PO BID PRN #30 tab 10/13/19 09/15/20 Rx Novolog Flexpen U-100 Insulin 100 See Rx Instructions .ROUTE 03/13/20 09/15/20 Rx unit/mL (3 mL) subcutaneous .COMPLEX 90 Days #3 box NS clopidogrel 75 mg tablet 75 mg PO QAM #90 tab 06/05/20 09/15/20 Rx hydrocortisone 2.5 % topical cream 1 applic KS BID PRN #28.35 gm 06/05/20 09/15/20 Rx with perineal applicator insulin glargine 100 unit/mL (3 16 unit SUBCUT QPM ml 08/31/20 09/15/20 History mL) subcutaneous pen nintedanib 100 mg capsule 100 mg PO DAILY #60 cap 08/31/20 09/15/20 Rx atorvastatin 20 mg tablet 20 mg PO DAILY #90 tab 09/04/20 09/15/20 Rx torsemide 20 mg tablet 20 mg PO QAM #90 tab 09/04/20 09/15/20 Rx pantoprazole 40 mg PO DAILY 09/15/20 09/15/20 History potassium chloride 10 meq PO DAILY #30 tab 09/17/20 Rx Allergies Allergy/AdvReac Type Severity Reaction Status Date / Time cyanocobalamin (vitamin B12) Allergy Mild Rash Verified 09/15/20 13:28 niacinamide Allergy Unknown RASH Verified 09/15/20 13:28 pyridoxine Allergy Unknown RASH Verified 09/15/20 13:28 riboflavin (vitamin B2) Allergy Unknown RASH Verified 09/15/20 13:28 tetracycline Allergy Unknown RASH Verified 09/15/20 13:28 thiamine (vitamin B1) Allergy Unknown RASH Verified 09/15/20 13:28 Past Med/Surg History Medical History (Updated 09/17/20 @ 22:20 by Renata Matson, DO) Aspiration pneumonia Carotid artery plaque Chronic interstitial lung disease severe, 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; dx 2019; follows with Dr Amos Moran Chronic respiratory failure with hypoxia, on home O2 therapy 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 Chronic right-sided congestive heart failure Diabetes mellitus, type 2 Disequilibrium Dyslipidemia GERD (gastroesophageal reflux disease) Hilar adenopathy Hyperlipidemia Primary osteoarthritis of right knee Pulmonary hypertension OFEV TREATMENT Rosacea Solitary pulmonary nodule Stenosis of right carotid artery reason for plavix Symptomatic vertebral artery stenosis without infarction Type 2 diabetes mellitus Vertigo Surgical History History of bilateral cataract extraction History of cholecystectomy 1975 History of colonoscopy History of esophagogastroduodenoscopy (EGD) History of tonsillectomy History of total right knee replacement (TKR) 2002 Family History Sister Family hx of colon cancer Breast cancer Colorectal cancer Father , resulting in at age 53 Myocardial infarction Mother Asthma Heart disease Hearing loss Other Kidney stones No family history of adverse response to anesthesia No family history of bleeding disorder Social History (Updated 09/15/20 @ 18:21 by Romero Ramachandran) Smoking Status: Never smoker Age Started Using Tobacco: 15; Age Quit Using Tobacco: 39; packs per day: 2; Years Smoked: 24; Second Hand Exposure: No; Hx Alcohol Use: No Hx Substance Use: No Preferred Language: Khmer Communication Ability: Effective Visual Impairment: No Limitations Hearing Ability: Normal Astrophysics Teacher Required: No Beliefs That Will Affect Care: None marital status: Single Current Living Situation: Alone current occupational status: retired other: 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 and A total of 10 systems reviewed and were otherwise negative Physical Exam Vital Signs Vital Signs - 24 hr 09/15/20 15:06 Temperature 36.7 C Temperature Source Temporal Artery Scan Pulse Rate 93 H Respiratory Rate 22 Blood Pressure 117/71 Blood Pressure Mean 86 Pulse Oximetry 88 L Oxygen Delivery Method Nasal Cannula Oxygen Flow Rate 4 Sepsis Recent Fever Within 48 Hours No Sepsis New/Unexplained Change in Mental Status No Sepsis Action Taken by Nursing No Action Required GENERAL: alert, well appearing, well nourished, no distress, non-toxic EYE EXAM: normal conjunctiva, PERRL and EOM's grossly intact OROPHARYNX: no exudate, no erythema, lips, buccal mucosa, and tongue normal and mucous membranes are moist NECK: supple, no nuchal rigidity, no adenopathy, non-tender LUNGS: Clear to auscultation. Normal chest wall mechanics, no w/r/r HEART: no murmurs, S1 normal and S2 normal ABDOMEN: abdomen soft, non-tender, normo-active bowel sounds, no masses, no jorge ound or guarding. BACK: Back is symmetrical on inspection and there is no deformity, no midline tenderness, no CVA tenderness. SKIN: no rashes and no bruising UPPER EXTREMITIES: upper extremities are grossly normal. FROM, nml pulses b/l. LOWER EXTREMITIES: 2+ b/l pitting edema. FROM, nml pulses b/l. NEURO EXAM: Normal sensorium, cranial nerves II-XII grossly intact, normal speech, no gross weakness of arms, no gross weakness of legs. Gross sensation intact. Course Administered Medications Discontinued Medications Clopidogrel Bisulfate (Clopidogrel Bisulfate 75 Mg Tab) 75 mg PO QAM CHRISTIANO Stop: 10/16/20 08:59 Last Admin: 09/17/20 08:37 Dose: 75 mg Documented by: [id number] Admin: 09/16/20 07:53 Dose: 75 mg Documented by: [id number] Heparin Sodium (Porcine) (Heparin Sod 5,000 Unit/0.5 Ml Vial) 5,000 units SQ Q8 [facility]IANO Stop: 10/15/20 21:59 Last Admin: 09/17/20 06:08 Dose: 5,000 units Documented by: [id number] Admin: 09/16/20 21:19 Dose: 5,000 units Documented by: [id number] Admin: 09/16/20 14:11 Dose: 5,000 units Documented by: [id number] Admin: 09/16/20 06:43 Dose: 5,000 units Documented by: [id number] Admin: 09/15/20 22:57 Dose: 5,000 units Documented by: [id number] Magnesium Sulfate/Dextrose (Magnesium Sulfate / D5w) 1 gm in 100 mls @ 100 mls/hr IV Q1H [facility]RISTIANO Stop: 09/15/20 19:20 Last Infusion: 09/16/20 04:44 Dose: 0 mls/hr Documented by: [id number] Infusion: 09/15/20 19:53 Dose: 0 mls/hr Documented by: [id number] Admin: 09/15/20 19:29 Dose: 100 mls/hr Documented by: [id number] Infusion: 09/15/20 19:29 Dose: 100 mls/hr Documented by: [id number] Admin: 09/15/20 18:41 Dose: 100 mls/hr Documented by: [id number] Potassium Chloride 40 meq/ (Sodium Chloride) 1,020 mls @ 100 mls/hr IV .[id number] ONE Stop: 09/16/20 04:11 Last Infusion: 09/16/20 04:43 Dose: 0 mls/hr Documented by: [id number] Infusion: 09/15/20 19:53 Dose: 0 mls/hr Documented by: [id number] Admin: 09/15/20 19:30 Dose: 100 mls/hr Documented by: [id number] Magnesium Sulfate/Dextrose (Magnesium Sulfate / D5w) 1 gm in 100 mls @ 100 mls/hr IV NOW STA Stop: 09/15/20 08:14 Last Infusion: 09/15/20 19:33 Dose: 0 mls/hr Documented by: [id number] Admin: 09/15/20 19:10 Dose: 100 mls/hr Documented by: [id number] Potassium Chloride (K Cal / Wtr) 10 meq in 100 mls @ 100 mls/hr IV Q1H [facility]IANO Stop: 09/15/20 21:44 Last Infusion: 09/16/20 02:06 Dose: 0 mls/hr Documented by: [id number] Admin: 09/15/20 23:56 Dose: 50 mls/hr Documented by: [id number] Infusion: 09/15/20 23:53 Dose: 0 mls/hr Documented by: [id number] Admin: 09/15/20 20:25 Dose: 100 mls/hr Documented by: [id number] Magnesium Sulfate/Dextrose (Magnesium Sulfate / D5w) 1 gm in 100 mls @ 50 mls/hr IV Q2H [facility]IANO Stop: 09/16/20 04:25 Last Infusion: 09/16/20 06:21 Dose: 0 mls/hr Documented by: [id number] Admin: 09/16/20 04:01 Dose: 50 mls/hr Documented by: [id number] Infusion: 09/16/20 04:01 Dose: 0 mls/hr Documented by: [id number] Admin: 09/16/20 01:59 Dose: 50 mls/hr Documented by: [id number] Potassium Chloride (K Cal / Wtr) 10 meq in 100 mls @ 100 mls/hr IV Q1H [facility]IANO Stop: 09/16/20 09:29 Last Infusion: 09/16/20 10:46 Dose: 0 mls/hr Documented by: [id number] Admin: 09/16/20 08:50 Dose: 100 mls/hr Documented by: [id number] Infusion: 09/16/20 08:50 Dose: 100 mls/hr Documented by: [id number] Admin: 09/16/20 07:51 Dose: 100 mls/hr Documented by: [id number] Potassium Chloride (K Cal / Wtr) 10 meq in 100 mls @ 100 mls/hr IV Q1H [facility]STIANO Stop: 09/16/20 12:59 Last Infusion: 09/16/20 13:52 Dose: 0 mls/hr Documented by: [id number] Admin: 09/16/20 12:52 Dose: 100 mls/hr Documented by: [id number] Infusion: 09/16/20 12:51 Dose: 0 mls/hr Documented by: [id number] Admin: 09/16/20 11:41 Dose: 100 mls/hr Documented by: [id number] Insulin Aspart (Insulin Aspart 100 Units/Ml 3 Ml Pen) 0 units SC ACHS CHRISTIANO; Protocol Stop: 10/15/20 22:44 Last Admin: 09/17/20 12:13 Dose: 7 units Documented by: [id number] Cosigned by: [id number] Admin: 09/17/20 08:37 Dose: 2 units Documented by: [id number] Cosigned by: [id number] Admin: 09/16/20 21:21 Dose: 2 units Documented by: [id number] Cosigned by: [id number] Admin: 09/16/20 18:11 Dose: 10 units Documented by: [id number] Cosigned by: [id number] Admin: 09/16/20 12:32 Dose: 6 units Documented by: [id number] Cosigned by: [id number] Admin: 09/16/20 08:49 Dose: Not Given Documented by: [id number] Cosigned by: [id number] Admin: 09/15/20 22:52 Dose: 4 units Documented by: [id number] Cosigned by: [id number] Insulin Glargine (Insulin Glargine Solostar 100 Units/Ml 3 Ml Pen) 16 units SQ QPM [facility] Stop: 10/15/20 22:14 Last Admin: 09/16/20 21:21 Dose: 16 units Documented by: [id number] Cosigned by: [id number] Admin: 09/15/20 22:51 Dose: 16 units Documented by: [id number] Cosigned by: [id number] Melatonin (Melatonin 3 Mg Tab) 3 mg PO HS PRN PRN Reason: Sleep Stop: 10/16/20 01:06 Last Admin: 09/16/20 22:59 Dose: 3 mg Documented by: [id number] Admin: 09/16/20 01:47 Dose: 3 mg Documented by: [id number] Miscellaneous (Nintedanib [Ofev]: Order Awaiting Action) 1 ea N/A QS [facility] Stop: 10/16/20 00:00 Last Admin: 09/17/20 08:38 Dose: Not Given Documented by: [id number] Admin: 09/17/20 00:26 Dose: Not Given Documented by: [id number] Admin: 09/16/20 18:10 Dose: Not Given Documented by: [id number] Admin: 09/16/20 08:49 Dose: Not Given Documented by: [id number] Admin: 09/16/20 02:07 Dose: Not Given Documented by: [id number] Miscellaneous Information (Pharmacy Glycemic Mgmt Consult) 1 ea N/A NOW STA Stop: 09/15/20 19:03 Last Admin: 09/16/20 07:05 Dose: Not Given Documented by: [id number] Pantoprazole Sodium (Pantoprazole 40 Mg Tab) 40 mg PO DAILY [facility]IAN[facility] Stop: 10/16/20 08:59 Last Admin: 09/17/20 08:37 Dose: 40 mg Documented by: [id number] Admin: 09/16/20 07:54 Dose: 40 mg Documented by: [id number] Potassium Chloride (Potassium Chloride Crtab 20 Meq Tabcr) 40 meq PO NOW STA Stop: 09/15/20 17:22 Last Admin: 09/15/20 18:40 Dose: 40 meq Documented by: [id number] Potassium Chloride (Potassium Chloride Crtab 20 Meq Tabcr) 40 meq PO TID [facility]IANO Stop: 09/16/20 14:01 Last Admin: 09/16/20 14:10 Dose: 40 meq Documented by: [id number] Admin: 09/16/20 10:46 Dose: Not Given Documented by: [id number] Admin: 09/15/20 22:57 Dose: 40 meq Documented by: [id number] Potassium Chloride (Potassium Chloride Crtab 20 Meq Tabcr) 40 meq PO TODAY@0730 [facility] Stop: 09/16/20 23:59 Last Admin: 09/16/20 07:52 Dose: 40 meq Documented by: [id number] Potassium Chloride (Potassium Chloride Crtab 20 Meq Tabcr) 20 meq PO NOW STA Stop: 09/16/20 17:08 Last Admin: 09/16/20 18:22 Dose: Not Given Documented by: [id number] Potassium Chloride (Potassium Chloride 20 Meq/15 Ml Udc) 20 meq PO TID CHRISTIANO Stop: 09/18/20 14:01 Last Admin: 09/17/20 08:37 Dose: 20 meq Documented by: [id number] Admin: 09/16/20 21:19 Dose: 20 meq Documented by: [id number] Vitamin D (Cholecalciferol 1,000 Units 25 Mcg Tab) 2,000 [facility] [place] Stop: 10/16/20 08:59 Last Admin: 09/17/20 08:38 Dose: 2,000 units Documented by: [id number] Admin: 09/16/20 07:54 Dose: 2,000 units Documented by: [id number] Medical Decision Making Differential Diagnosis Differential: DVT, CHF, Arterial Occlusion, Infectious, Joint Effusion, Trauma, Lymphedema, Idiopathic, Trauma, amongst other pathologies entertained. Medical Records Attestation: I reviewed the patient's medical records. Home Medications Current Medication List: was personally reviewed by me Laboratory Data Attestation: I reviewed the patient's lab results. Result diagrams: 09/17/20 08:55 09/17/20 08:55 Lab Results 09/15/20 09/15/20 09/15/20 Range/Units 16:20 16:20 18:45 WBC 10.14 (4.8-10.8) K/uL RBC 4.59 L (4.7-6.1) M/uL Hgb 13.9 L (14.0-18.0) g/dL Hct 43.4 (42-52) % MCV 94.6 (80-100) fL MCH 30.3 (25-34) pg MCHC 32.0 (32-36) g/dL RDW Std Deviation 62.2 H (36.4-46.3) fL RDW Coeff of Ron 18.2 H (11.5-14.5) % Plt Count 208 (130-400) K/uL MPV 10.4 (7.4-10.4) fL Immature Gran % (Auto) 0.2 % Neut % (Auto) 64.9 % Lymph % (Auto) 24.6 % Johnston % (Auto) 9.5 % Eos % (Auto) 0.6 % Baso % (Auto) 0.2 % Neut # (Auto) 6.59 H (1.4-6.5) K/uL Lymph # (Auto) 2.49 (1.2-3.4) K/uL Johnston # (Auto) 0.96 H (0.11-0.59) K/uL Eos # (Auto) 0.06 (0-0.5) K/uL Baso # (Auto) 0.02 (0-0.2) K/uL Immature Gran # (Auto) 0.02 (0.00-0.02) K/uL Sodium 141 (136-145) mmol/L Potassium 2.2 L* (3.5-5.1) mmol/L Chloride 100 (98-107) mmol/L Carbon Dioxide 33 H (21-32) mmol/L Anion Gap 8.0 (3-11) BUN 24 H (7-18) mg/dl Creatinine 1.64 H (0.6-1.4) mg/dl Est Cr Clr Drug Dosing Not Reportable Est GFR ( Amer) 44.8 ml/min Est GFR (Non-Af Amer) 38.6 ml/min BUN/Creatinine Ratio 14.3 (10-20) Glucose 173 H (70-99) mg/dl Calcium 7.7 L (8.5-10.1) mg/dl Magnesium 1.3 L (1.8-2.4) mg/dl Total Bilirubin 1.5 H (0.2-1) mg/dl AST 31 (15-37) U/L ALT 26 (12-78) U/L Alkaline Phosphatase 250 H (45-117) U/L Troponin I 0.067 H* (0-0.045) ng/ml NT-Pro-B Natriuret Pep 2518 H (0-1800) pg/ml Total Protein 6.8 (6.4-8.2) gm/dl Albumin 2.8 L (3.4-5.0) gm/dl Globulin 4.0 (2.5-4.0) gm/dl Albumin/Globulin Ratio 0.7 L (0.9-2) COVID-19 Eval Order Covid19 at [facility] SARS-CoV-2 (PCR) (Negative) 09/15/20 Range/Units 18:45 WBC (4.8-10.8) K/uL RBC (4.7-6.1) M/uL Hgb (14.0-18.0) g/dL Hct (42-52) % MCV (80-100) fL MCH (25-34) pg MCHC (32-36) g/dL RDW Std Deviation (36.4-46.3) fL RDW Coeff of Ron (11.5-14.5) % Plt Count (130-400) K/uL MPV (7.4-10.4) fL Immature Gran % (Auto) % Neut % (Auto) % Lymph % (Auto) % Johnston % (Auto) % Eos % (Auto) % Baso % (Auto) % Neut # (Auto) (1.4-6.5) K/uL Lymph # (Auto) (1.2-3.4) K/uL Johnston # (Auto) (0.11-0.59) K/uL Eos # (Auto) (0-0.5) K/uL Baso # (Auto) (0-0.2) K/uL Immature Gran # (Auto) (0.00-0.02) K/uL Sodium (136-145) mmol/L Potassium (3.5-5.1) mmol/L Chloride (98-107) mmol/L Carbon Dioxide (21-32) mmol/L Anion Gap (3-11) BUN (7-18) mg/dl Creatinine (0.6-1.4) mg/dl Est Cr Clr Drug Dosing Est GFR ( Amer) ml/min Est GFR (Non-Af Amer) ml/min BUN/Creatinine Ratio (10-20) Glucose (70-99) mg/dl Calcium (8.5-10.1) mg/dl Magnesium (1.8-2.4) mg/dl Total Bilirubin (0.2-1) mg/dl AST (15-37) U/L ALT (12-78) U/L Alkaline Phosphatase (45-117) U/L Troponin I (0-0.045) ng/ml NT-Pro-B Natriuret Pep (0-1800) pg/ml Total Protein (6.4-8.2) gm/dl Albumin (3.4-5.0) gm/dl Globulin (2.5-4.0) gm/dl Albumin/Globulin Ratio (0.9-2) COVID-19 Eval Order SARS-CoV-2 (PCR) NEGATIVE (Negative) ECG Data Attestation: I personally reviewed and interpreted this ECG as follows: Indication: + other Rate (beats per minute): 79 Rhythm: + normal sinus ECG Intervals/blocks: + Right Bundle branch block and + Normal QT ECG Weston: + Left axis deviation ECG ST segments: + Nonspecific ST abnormalities MDM Narrative Patient here due to concern for LE edema. Patient denies complaints or concerns. Labs drawn and sent to evaluate for FELICITAS and CHF initially. Significant electrolyte abnormalities noted. No ekg changes or ectopy/dysrythmia. Pt updated on results. Pt given oral potassium and IV mag repletion and IVF with potassium both ordered to begin repletion. Updated pt on labs and need for additional inpatient monitoring. Patient verbalized understanding. Case discussed with hospitalist. An order was placed for continuous cardiac monitoring. The monitor shows a rate of _80__ with _normal sinus__ rhythm. Impression & Plan Hypokalemia, Hypomagnesemia, Elevated troponin, Bilateral edema of lower extremity Discharge Plan Visit Data Chief Complaint: Swelling/Edema to Extremity Stated Complaint: SWELLING IN BOTH LEGS ED Provider: Renata Matson Discharge Problem: Hypokalemia, Hypomagnesemia, Elevated troponin, Bilateral edema of lower extremity Patient Disposition: Admitted As Inpatient Discharge Instructions Interventions: ED Discharge Assessment Last Done: 09/15/20 21:01
[2020-09-15 16:30] LABS: Basophils # (auto) 0.02 K/uL (0-0.2); Basophils % (auto) 0.2 %; Eosinophils # (auto) 0.06 K/uL (0-0.5); Eosinophils % (auto) 0.6 %; Hematocrit (blood only) 43.4 % (42-52); Hemoglobin 13.9 g/dL (14.0-18.0); Immature Granulocytes # (auto) 0.02 K/uL (0.00-0.02); Immature Granulocytes % (auto) 0.2 %; Lymphocytes # (auto) 2.49 K/uL (1.2-3.4); Lymphocytes % (auto) 24.6 %; Mean Corpuscular Hemoglobin 30.3 pg (25-34); Mean Corpuscular Volume 94.6 fL (80-100); Mean Platelet Volume 10.4 fL (7.4-10.4); Monocytes # (auto) 0.96 K/uL (0.11-0.59); Monocytes % (auto) 9.5 %; Neutrophils # (auto) 6.59 K/uL (1.4-6.5); Neutrophils % (auto) 64.9 %; Platelet Count 208 K/uL (130-400); RDW Coefficient of Variation 18.2 % (11.5-14.5); RDW Standard Deviation 62.2 fL (36.4-46.3); Red Blood Count 4.59 M/uL (4.7-6.1); White Blood Count 10.14 K/uL (4.8-10.8)
--- NOTE | 2020-09-15 16:31 | XRay Report ---
XR chest 1V portable HISTORY: Lower extremity edema. Shortness of breath. COMPARISON: Chest 08/12/2019. FINDINGS: No pneumothorax. No pleural fusions. The cardiac silhouette remains enlarged. There are low lung volumes. Diffuse interstitial thickening persists. This most pronounced within the left lower l obe. This favors a chronic interstitial pneumonitis. No new focal lung consolidations to suggest pneu monia. No evidence for superimposed pulmonary edema. Possible 7 mm nodule within the left midlung zon e. IMPRESSION: 1. Low lung volumes with diffuse interstitial thickening, unchanged. This is consistent with the tete ent's known chronic interstitial lung disease. 2. No evidence for superimposed pulmonary edema. 3. Possible 7 mm nodule within the left midlung zone. This was described on a prior chest CT and appe ars stable. ACT 112: Negative or not required by law. Electronically signed by: Ibrahima Kellogg M.D. 09/15/2020 4:30 PM
[2020-09-15 16:56] LABS: Alanine Aminotransferase 26 U/L (12-78); Albumin Globulin Ratio 0.7 (0.9-2); Albumin Level 2.8 gm/dl (3.4-5.0); Alkaline Phosphatase 250 U/L (45-117); Aspartate Aminotransferase 31 U/L (15-37); BUN Creatinine Ratio 14.3 (10-20); Bilirubin,Total 1.5 mg/dl (0.2-1); Blood Urea Nitrogen 24 mg/dl (7-18); Calcium 7.7 mg/dl (8.5-10.1); Carbon Dioxide 33 mmol/L (21-32); Chloride 100 mmol/L (98-107); Est GFR (African American) 44.8 ml/min; Est GFR (Non-African American) 38.6 ml/min; Glucose 173 mg/dl (70-99); Magnesium 1.3 mg/dl (1.8-2.4); NT Pro B Type Natriuretic Pept 2518 pg/ml (0-1800); Potassium 2.2 mmol/L (3.5-5.1); Sodium 141 mmol/L (136-145); Total Protein 6.8 gm/dl (6.4-8.2); Troponin I 0.067 ng/ml (0-0.045)
--- NOTE | 2020-09-15 17:05 | Electrocardiogram Report ---
Test Reason : Blood Pressure : / mmHG Vent. Rate : 079 BPM Atrial Rate : 079 BPM P-R Int : 230 ms QRS Dur : 158 ms QT Int : 452 ms P-R-T Axes : 020 134 -10 degrees QTc Int : 518 ms Sinus rhythm with 1st degree A-V block Right bundle branch block Left posterior fascicular block Bifascicular block Abnormal ECG When compared with ECG of 12-AUG-2019 01:20, MT interval has increased Right bundle branch block has replaced Incomplete right bundle branch block Confirmed by Jose Alberto Robb ([id number] on 09/15/2020 5:05:34 PM Referred By: Confirmed By:Ivan Robb
[2020-09-15] MEDS ORDERED: POTASSIUM CHLORIDE CRTAB 20 MEQ TABCR PO STA (17:21)
--- NOTE | 2020-09-15 17:46 | History & Physical Report ---
Date of Service September 15, 2020 Assessment & Plan (1) Edema: Likely 2nd to severe cor pulmonale/chronic right-sided CHF. ECHO in 2019 showed SEVERE pulmonary HTN and severe right-sided ventricular dysfunction. To be complete will check a TSH as well as dopplers to r/o DVT. Due to severe hypokalemia and hypomagnesemia need to HOLD the torsemide until the electrolytes have normalized. Explained to patient that if the edema is due to cor pulmonale he will likely always have some element of edema. Will recheck echo in am. (2) Chronic right-sided congestive heart failure: SEVERE, based on 2019 echo. Repeat echo in am. Right heart disease 2nd to severe ILD / pulmonary HTN. (3) Chronic interstitial lung disease: Idiopathic. Follows with Dr Moran. On nintedanib 100mg daily. Deemed not a lung transplant candidate. No ILD exacerbation at this time. Continue NC O2 as previous. (4) Hypokalemia: severe. suspect combination of daily diuretic, poor oral intake, and diarrhea. nintedanib does not appear to directly cause low K or low Mag (but it causes diarrhea which in turn can waste the electrolytes). give KCL 20meq IV x 1 now. received 40meq PO K in ER. then place on KCL 40meq TID x 3 additional doses. repeat K later tonight and in am. replace low mag. (5) Hypomagnesemia: severe. replace with 3 grams mag sulfate x 1 now. repeat mag level tonight. (6) Type 2 diabetes mellitus: cont lantus cont novolog pharmacy glycemic management consult (7) Pulmonary hypertension: severe; PA pressure >100 on 2019 echo. repeat echo this admission. Pulm HTN 2nd ILD. (8) Abnormal LFTs: likely due to passive congestion from right-sided CHF. nintedanib can cause LFT abnormalities but this is less likely. (9) Prolonged QT interval: 2nd low K and low mag. replete both. consider repeat EKG later in admission. (10) Elevated troponin: no ischemic symptoms at presentation. likely 2nd to cor pulmonale in the setting of low K and low mag. (11) DVT prophylaxis: heparin [address] on observation status History of Present Illness Chief Complaint: LE edema Primary Care Provider: Mp Yeboah MD 79yo male with history of interstitial lung disease and resulting chronic hypoxic respiratory failure on home O2 for several years, 6-8 liters continuously, presents from his PCP's office with LE edema. The patient had had a nurse visit for ear irrigation due to cerumen impaction and it was noted that he had LE edema. Dr Moran, his it application administrator, was contacted and he advised going to the ER due to the worsening edema. Patient is uncertain how long he has had edema. Denies any abdominal bloating or ascites. PADILLA has been at baseline of late - walking 5-10 feet causes dyspnea. This is unchanged. No recent prednisone use. No recent new medications added. While in the ER he had routine blood work showing severe hypomagnesemia and hypokalemia. Allergies Allergy/AdvReac Type Severity Reaction Status Date / Time cyanocobalamin (vitamin B12) Allergy Mild Rash Verified 09/15/20 13:28 niacinamide Allergy Unknown RASH Verified 09/15/20 13:28 pyridoxine Allergy Unknown RASH Verified 09/15/20 13:28 riboflavin (vitamin B2) Allergy Unknown RASH Verified 09/15/20 13:28 tetracycline Allergy Unknown RASH Verified 09/15/20 13:28 thiamine (vitamin B1) Allergy Unknown RASH Verified 09/15/20 13:28 Home Medications Medication Instructions Recorded Confirmed Type cholecalciferol (vitamin D3) 2,000 unit PO QAM 07/06/18 09/15/20 History [Vitamin D3] amoxicillin 500 mg tablet 2,000 mg PO UD PRN tab 02/05/19 09/15/20 History meclizine 12.5 mg tablet 12.5 mg PO BID PRN #30 tab 10/13/19 09/15/20 Rx Novolog Flexpen U-100 Insulin 100 See Rx Instructions .ROUTE 03/13/20 09/15/20 Rx unit/mL (3 mL) subcutaneous .COMPLEX 90 Days #3 box NS clopidogrel 75 mg tablet 75 mg PO QAM #90 tab 06/05/20 09/15/20 Rx hydrocortisone 2.5 % topical cream 1 applic OH BID PRN #28.35 gm 06/05/20 09/15/20 Rx with perineal applicator insulin glargine 100 unit/mL (3 16 unit SUBCUT QPM ml 08/31/20 09/15/20 History mL) subcutaneous pen nintedanib 100 mg capsule 100 mg PO DAILY #60 cap 08/31/20 09/15/20 Rx atorvastatin 20 mg tablet 20 mg PO DAILY #90 tab 09/04/20 09/15/20 Rx torsemide 20 mg tablet 20 mg PO QAM #90 tab 09/04/20 09/15/20 Rx potassium 99 mg tablet 99 mg PO QAM tab 09/13/20 09/15/20 History pantoprazole 40 mg PO DAILY 09/15/20 09/15/20 History Past Med/Surg History Medical History (Updated 09/15/20 @ 22:57 by Romero Ramachandran) Aspiration pneumonia Carotid artery plaque Chronic interstitial lung disease severe, 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; dx 2019; follows with Dr Amos Moran Chronic respiratory failure with hypoxia, on home O2 therapy 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 Chronic right-sided congestive heart failure Diabetes mellitus, type 2 Disequilibrium Dyslipidemia GERD (gastroesophageal reflux disease) Hilar adenopathy Hyperlipidemia Primary osteoarthritis of right knee Pulmonary hypertension OFEV TREATMENT Rosacea Solitary pulmonary nodule Stenosis of right carotid artery reason for plavix Symptomatic vertebral artery stenosis without infarction Type 2 diabetes mellitus Vertigo Surgical History History of bilateral cataract extraction History of cholecystectomy 1975 History of colonoscopy History of esophagogastroduodenoscopy (EGD) History of tonsillectomy History of total right knee replacement (TKR) 2002 Family History Sister Family hx of colon cancer Breast cancer Colorectal cancer Father , resulting in at age 53 Myocardial infarction Mother Asthma Heart disease Hearing loss Other Kidney stones No family history of adverse response to anesthesia No family history of bleeding disorder Social History (Updated 09/15/20 @ 18:21 by Romero Ramachandran) Smoking Status: Never smoker Age Started Using Tobacco: 15; Age Quit Using Tobacco: 39; packs per day: 2; Years Smoked: 24; Second Hand Exposure: No; Hx Alcohol Use: No Hx Substance Use: No Preferred Language: Romansh Communication Ability: Effective Visual Impairment: No Limitations Hearing Ability: Normal Film Drying 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 Operator Required: No Beliefs That Will Affect Care: None marital status: Single Current Living Situation: Alone 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) Feels Safe at Home: Yes Safety Concerns: Feels Safe At This Time Childhood Exposure to Second-Hand Smoke: Yes caffeine: No Dental Care, Regularly: Yes Physical Activity Frequency: Does not Exercise Physical Activity Frequency Comment: due to left knee Seatbelt Use: always Sunscreen Use: No Assistive Devices: None Review of Systems Constitutional: + anorexia and + weight loss (35 pounds since his ILD diagnosis ); no fever, no chills and no fatigue Eyes: + worsening vision (with hypoglycemia ) Ear, Nose, Mouth, Throat: + dysphagia (sees GI - Dr Osborne - cold items cause it ) no sores in mouth Respiratory: + dyspnea on exertion; no cough Cardiovascular: + edema; no chest pain, no orthopnea and no paroxysmal nocturnal dyspnea Gastrointestinal: + nausea, + vomiting (dry heaves ) and + diarrhea/loose stools (1-2x's/day); no abdominal pain, no bloating and no blood in stools Genitourinary: no difficulty urinating Musculoskeletal: + joint pain (left knee ); no back pain, no myalgia and no body aches Integumentary: no rash Neurologic: no tingling and no numbness Psychiatric: no depression and no anxiety Endocrine: has diabetes; follows with Dr Ruby Ruffin Hematologic / Lymphatic: no easy bruising Physical Exam Constitutional: no acute distress and no altered mental status Eyes: PERRL ENMT: external ear and nose normal, oropharynx normal Neck: trachea midline, no thyromegaly Respiratory: no respiratory distress Auscultation: + rales (b/l bases, about 1/[address] up back); no wheezes Cardiovascular: Rate/Rhythm: regular rate and regular rhythm Heart Sounds: normal S1, normal S2 and + murmur (3/6 holosystolic LSB ) Vessels: + JVD (to the jaw ), posterior tibial pulses present and dorsalis pedis pulses present Extremities: + edema (<1+ b/l ) Gastrointestinal (Abdomen): normal bowel sounds, soft, nontender, no hepatosplenomegaly Musculoskeletal: Extremities: + clubbing Skin: mild venous stasis changes b/l legs Neurologic: deep tendon reflexes 2+ bilaterally and moves all extremities Psychiatric: Orientation: alert and oriented x 3 Lymphatic: no cervical lymphadenopathy Results & Data Results & Data ([facility]) Vital Signs (Past 12 Hours) Vital Signs Temp Pulse Resp BP Pulse Ox 09/15/20 16:30 80 18 94 09/15/20 16:00 80 20 96 09/15/20 15:30 83 21 96 09/15/20 15:06 36.7 C 93 H 22 117/71 88 L Laboratory Results Labs 09/15/20 09/15/20 09/15/20 16:20 16:20 18:45 WBC 10.14 RBC 4.59 L Hgb 13.9 L Hct 43.4 MCV 94.6 MCH 30.3 MCHC 32.0 RDW Std Deviation 62.2 H RDW Coeff of Ron 18.2 H Plt Count 208 MPV 10.4 Immature Gran % (Auto) 0.2 Neut % (Auto) 64.9 Lymph % (Auto) 24.6 [place] % (Auto) 9.5 Eos % (Auto) 0.6 Baso % (Auto) 0.2 Neut # (Auto) 6.59 H Lymph # (Auto) 2.49 [place] # (Auto) 0.96 H Eos # (Auto) 0.06 Baso # (Auto) 0.02 Immature Gran # (Auto) 0.02 Sodium 141 Potassium 2.2 L* Chloride 100 Carbon Dioxide 33 H Anion Gap 8.0 BUN 24 H Creatinine 1.64 H Est Cr Clr Drug Dosing Not Reportable Est GFR ( Amer) 44.8 Est GFR (Non-Af Amer) 38.6 BUN/Creatinine Ratio 14.3 Glucose 173 H POC Glucose Calcium 7.7 L Magnesium 1.3 L Total Bilirubin 1.5 H AST 31 ALT 26 Alkaline Phosphatase 250 H Troponin I 0.067 H* NT-Pro-B Natriuret Pep 2518 H Total Protein 6.8 Albumin 2.8 L Globulin 4.0 Albumin/Globulin Ratio 0.7 L COVID-19 Eval Order Covid19 at [facility] SARS-CoV-2 (PCR) 09/15/20 09/15/20 09/15/20 18:45 20:32 21:58 WBC RBC Hgb Hct MCV MCH MCHC RDW Std Deviation RDW Coeff of Ron Plt Count MPV Immature Gran % (Auto) Neut % (Auto) Lymph % (Auto) Carl[place] % (Auto) Eos % (Auto) Baso % (Auto) Neut # (Auto) Lymph # (Auto) [place] # (Auto) Eos # (Auto) Baso # (Auto) Immature Gran # (Auto) Sodium Potassium Chloride Carbon Dioxide Anion Gap BUN Creatinine Est Cr Clr Drug Dosing Est GFR ( Amer) Est GFR (Non-Af Amer) BUN/Creatinine Ratio Glucose POC Glucose 117 H 109 H Calcium Magnesium Total Bilirubin AST ALT Alkaline Phosphatase Troponin I NT-Pro-B Natriuret Pep Total Protein Albumin Globulin Albumin/Globulin Ratio COVID-19 Eval Order SARS-CoV-2 (PCR) NEGATIVE Diagnostic Findings Chest X-Ray 09/15/20 15:55 XR chest 1V portable HISTORY: Lower extremity edema. Shortness of breath. COMPARISON: Chest 08/12/2019. FINDINGS: No pneumothorax. No pleural fusions. The cardiac silhouette remains enlarged. There are low lung volumes. Diffuse interstitial thickening persists. This most pronounced within the left lower lobe. This favors a chronic interstitial pneumonitis. No new focal lung consolidations to suggest pneumonia. No evidence for superimposed pulmonary edema. Possible 7 mm nodule within the left midlung zone. IMPRESSION: 1. Low lung volumes with diffuse interstitial thickening, unchanged. This is consistent with the patient's known chronic interstitial lung disease. 2. No evidence for superimposed pulmonary edema. 3. Possible 7 mm nodule within the left midlung zone. This was described on a prior chest CT and appears stable. ACT 112: Negative or not required by law. Electronically signed by: Ibrahima Kellogg M.D. 09/15/2020 4:30 PM EKG - NSR, first degree AV block, RBBB, prolonged QT Code Status & VTE Plan Code Status full code VTE Prophylaxis Plan VTE Prophylaxis will be ordered: Yes PG Care Time/CCT Total # of Minutes Spent Total Time Spent with Patient: Total time spent is greater than 50% in coordination of care (as documented) at patient's floor/unit and/or counseling patient: Coding Level of Care Code 26801 OBS Care - Level 3 Diagnoses Edema R60.9 Edema type: unspecified Chronic right-sided congestive heart failure I50.812 Chronic interstitial lung disease J84.9 Hypokalemia E87.6 Hypomagnesemia E83.42 Type 2 diabetes mellitus E11.9 Diabetes mellitus long term care pharmacist insulin use: with long term care pharmacist use Pulmonary hypertension I27.20 Abnormal LFTs R94.5 Prolonged QT interval R94.31 Elevated troponin R77.8 DVT prophylaxis Z29.9 (1) Type 2 diabetes mellitus Diabetes mellitus mcc insulin use: with long term care pharmacist use (2) Edema Edema type: unspecified Qualified Code(s): R60.9 - Edema, unspecified
[2020-09-15] MEDS ORDERED: POTASSIUM CHLORIDE 40 MEQ in SODIUM CHLORIDE 0.9% 1000ML 1,000 ML IV ONE (18:00)
[2020-09-15] MEDS: MAGNESIUM SULFATE / D5W 1 GM/100 ML BAG IV SCH ×2 (18:41→19:29)
[2020-09-15] MEDS ORDERED: PHARMACY GLYCEMIC MGMT CONSULT STA (19:02)
[2020-09-15] MEDS: POTASSIUM CHLORIDE / WTR 10 MEQ/100 ML PLCT IV SCH ×2 (20:25→23:56)
[2020-09-15] MEDS ORDERED: PHARMACY GLYCEMIC MGMT CONSULT PRN ×2 (20:29→21:57)
[2020-09-15] MEDS ORDERED: MECLIZINE 12.5 MG TAB PO PRN (21:52)
[2020-09-15] MEDS ORDERED: ONDANSETRON INJ 2 MG/ML 2 ML VIAL IV PRN (21:52)
[2020-09-15] MEDS ORDERED: CARBOHYDRATES FOR HYPOGLYCEMIA PO PRN (22:00)
[2020-09-15] MEDS ORDERED: GLUCOSE 40% GEL 15 GM TUBE PO PRN (22:00)
[2020-09-15] MEDS ORDERED: DEXTROSE 50% 50 ML SYRINGE IV PRN (22:00)
[2020-09-15] MEDS ORDERED: GLUCAGON FOR INJ 1 MG VIAL IM PRN (22:00)
[2020-09-15] MEDS ORDERED: GLUCOSE 10 TABS/TUBE PO PRN (22:00)
[2020-09-15] MEDS: INSULIN GLARGINE SOLOSTAR 100 UNITS/ML 3 ML PEN SQ SCH (22:51)
[2020-09-15] MEDS: INSULIN ASPART 100 UNITS/ML 3 ML PEN SC SCH (22:52)
[2020-09-15] MEDS: HEPARIN SOD 5,000 UNIT/0.5 ML VIAL SQ SCH (22:57)
[2020-09-15] MEDS: POTASSIUM CHLORIDE CRTAB 20 MEQ TABCR PO SCH (22:57)
[2020-09-16 00:05] LABS: Potassium 2.4 mmol/L (3.5-5.1)
[2020-09-16 00:14] LABS: Magnesium 1.8 mg/dl (1.8-2.4); Thyroid Stimulating Hormone 2.18 uIu/ml (0.300-4.500)
[2020-09-16] MEDS: MELATONIN 3 MG TAB PO PRN ×2 (01:47→22:59)
[2020-09-16] MEDS: MAGNESIUM SULFATE / D5W 1 GM/100 ML BAG IV SCH ×2 (01:59→04:01)
[2020-09-16] MEDS: HEPARIN SOD 5,000 UNIT/0.5 ML VIAL SQ SCH ×3 (06:43→21:19)
[2020-09-16 06:44] LABS: Albumin Globulin Ratio 0.7 (0.9-2); Albumin Level 2.4 gm/dl (3.4-5.0); Bilirubin,Total 1.3 mg/dl (0.2-1); Calcium 7.2 mg/dl (8.5-10.1); Creatinine Clr Calc Pharmacy 37.1 ml/min; Est GFR (African American) 52.9 ml/min; Est GFR (Non-African American) 45.6 ml/min; Globulin 3.5 gm/dl (2.5-4.0); Magnesium 2.6 mg/dl (1.8-2.4); Potassium 2.4 mmol/L (3.5-5.1); Total Protein 5.9 gm/dl (6.4-8.2)
[2020-09-16] MEDS ORDERED: POTASSIUM CHLORIDE CRTAB 20 MEQ TABCR PO SCH ×2 (07:30→21:00)
[2020-09-16] MEDS: POTASSIUM CHLORIDE / WTR 10 MEQ/100 ML PLCT IV SCH ×4 (07:51→12:52)
[2020-09-16] MEDS: CLOPIDOGREL BISULFATE 75 MG TAB PO SCH (07:53)
[2020-09-16] MEDS: CHOLECALCIFEROL 1,000 UNITS 25 MCG TAB PO SCH (07:54)
[2020-09-16] MEDS: PANTOprazole 40 MG TAB PO SCH (07:54)
[2020-09-16 08:21] LABS: Estimated Average Glucose 177 mg/dl; Hemoglobin A1C 7.8 % (4.5-5.6)
[2020-09-16] MEDS: INSULIN ASPART 100 UNITS/ML 3 ML PEN SC SCH ×4 (08:49→21:21)
--- NOTE | 2020-09-16 10:34 | XCELERA ---
[id number]
[2020-09-16] MEDS: POTASSIUM CHLORIDE CRTAB 20 MEQ TABCR PO SCH ×2 (10:46→14:10)
[2020-09-16] MEDS ORDERED: POTASSIUM CHLORIDE / WTR 10 MEQ/100 ML PLCT IV SCH (11:00)
--- NOTE | 2020-09-16 11:45 | Pharmacy Report ---
Pharmacy Glycemic Short Note 2 - Date of Service September 16, 2020 - Glycemic Short BSG Results (Last 24 hours): 09/15/20 09/15/20 09/15/20 16:20 20:32 21:58 Glucose 173 H POC Glucose 117 H 109 H 09/16/20 09/16/20 05:33 07:09 Glucose 139 H POC Glucose 136 H OUTPATIENT ANTIDIABETIC REGIMEN: * Lantus 16 units SQ HS * NovoLog per scale (up to 50 units/day) * A1c = 8.1% on 06/07/20 * A1c = 7.8% on 09/16/20 ASSESSMENT: * 79yo T2DM male with adequate outpatient control per A1c * Outpatient regimen is SQ basal bolus insulin regimen. Regimen is weighted towards prandial insulin (16 units basal vs up to 50 units prandial). * Will continue outpatient basal insulin dosing as patient received this dosing last evening and AM fasting BSG is in goal range this morning at 136 mg/dl. * Will use NovLog per weight based CF/CR and titrate based on BSG trends. PLAN FOR INPATIENT GLYCEMIC CONTROL: * Basal insulin * Lantus 16 units SQ HS * Bolus insulin * NovoLog per scale ACHS or Q6hrs while NPO * Goal Range: Low 110 mg/dL - High 140 mg/dL * Correction Factor: 30 mg/dL/unit * Nutritional / Prandial insulin per carb ratio of 1 unit per 12 grams CHO consumed PLAN FOR DISCHARGE: * A1c is in goal range for patient based on age/co-morbidities. No changes needed to outpatient regimen at ID
--- NOTE | 2020-09-16 11:48 | Ultrasound Report ---
BILATERAL LOWER EXTREMITY VENOUS DOPPLER CLINICAL HISTORY: edema of LEs; eval DVT COMPARISON STUDY: Right lower extremity venous Doppler ultrasound June 21, 2015. TECHNIQUE: Sonography of the deep venous system of the bilateral lower extremities was performed. Co mpression and augmentation were evaluated. FINDINGS: The bilateral common femoral, superficial femoral and popliteal veins were compressible. A ugmentation was normal. Flow was shown within the deep calf vessels. IMPRESSION: No evidence of deep venous thrombus within the bilateral lower extremities. ACT 112: Negative or not required by law. Electronically signed by: Star Hughes M.D. 09/16/2020 11:47 AM
[2020-09-16] MEDS ORDERED: POTASSIUM CHLORIDE CRTAB 20 MEQ TABCR PO STA (17:07)
[2020-09-16] MEDS: POTASSIUM CHLORIDE 20 MEQ/15 ML UDC PO SCH (21:19)
[2020-09-16] MEDS: INSULIN GLARGINE SOLOSTAR 100 UNITS/ML 3 ML PEN SQ SCH (21:21)
[2020-09-16] MEDS ORDERED: INSULIN ASPART 100 UNITS/ML 3 ML PEN SC SCH (22:15)
--- NOTE | 2020-09-16 22:52 | Hospitalist Progress Note ---
Date of Service September 16, 2020 Assessment & Plan (1) Edema: Likely 2nd to severe cor pulmonale/chronic right-sided CHF. ECHO in 2019 showed SEVERE pulmonary HTN and severe right-sided ventricular dysfunction. To be complete will check a TSH as well as dopplers to r/o DVT. Due to severe hypokalemia and hypomagnesemia need to HOLD the torsemide until the electrolytes have normalized. Explained to patient that if the edema is due to cor pulmonale he will likely always have some element of edema. Echo does not show much change. (2) Chronic right-sided congestive heart failure: SEVERE, based on 2019 echo. Repeat echo in am. Right heart disease 2nd to severe ILD / pulmonary HTN. (3) Chronic interstitial lung disease: Idiopathic. Follows with Dr Moran. On nintedanib 100mg daily. Deemed not a lung transplant candidate. No ILD exacerbation at this time. Continue NC O2 as previous. (4) Hypokalemia: severe. suspect combination of daily diuretic, poor oral intake, and diarrhea. nintedanib does not appear to directly cause low K or low Mag (but it causes diarrhea which in turn can waste the electrolytes). will continue Potassium 10 meq x4. (5) Hypomagnesemia: severe. replace with 3 grams mag sulfate x 1 now. repeat mag level tonight. (6) Type 2 diabetes mellitus: cont lanluisus cont novolog pharmacy glycemic management consult (7) Pulmonary hypertension: severe; PA pressure >100 on 2019 echo. repeat echo this admission. Pulm HTN 2nd ILD. (8) Abnormal LFTs: likely due to passive congestion from right-sided CHF. nintedanib can cause LFT abnormalities but this is less likely. (9) Prolonged QT interval: 2nd low K and low mag. replete both. consider repeat EKG later in admission. (10) Elevated troponin: no ischemic symptoms at presentation. likely 2nd to cor pulmonale in the setting of low K and low mag. (11) DVT prophylaxis: heparin [address] on observation status Admission and Anticipated Discharge Date Admission Date: September 15, 2020 Subjective Patient is 79 yo male is feeling well. Patient has no new complaints. Review of Systems Review of Systems: All systems reviewed & are unremarkable except as noted in HPI & below Physical Exam Physical Exam: Constitutional: no acute distress and no altered mental status Eyes: PERRL ENMT: external ear and nose normal, oropharynx normal Neck: trachea midline, no thyromegaly Respiratory: no respiratory distress Auscultation: + rales (b/l bases, about 1/[address] up back); no wheezes Cardiovascular: Rate/Rhythm: regular rate and regular rhythm Heart Sounds: normal S1, normal S2 and + murmur (3/6 holosystolic LSB ) Vessels: + JVD (to the jaw ), posterior tibial pulses present and dorsalis pedis pulses present Extremities: + edema (<1+ b/l ) Gastrointestinal (Abdomen): normal bowel sounds, soft, nontender, no hepatosplenomegaly Musculoskeletal: Extremities: + clubbing Skin: mild venous stasis changes b/l legs Neurologic: deep tendon reflexes 2+ bilaterally and moves all extremities Psychiatric: Orientation: alert and oriented x 3 Lymphatic: no cervical lymphadenopathy Results & Data Results & Data ([facility]) Vital Signs (Past 12 Hours) Vital Signs Temp Pulse Resp BP BP Pulse Ox 09/16/20 19:17 36.5 C 78 24 113/75 90 09/16/20 15:49 36.6 C 77 20 109/75 90 09/16/20 11:51 36.4 C L 74 20 118/72 91 PG Care Time/CCT Total # of Minutes Spent Total Time Spent with Patient: Total time spent is greater than 50% in coordination of care (as documented) at patient's floor/unit and/or counseling patient: Coding Level of Care Code 71304 Subseq Obs Care Lvl 2 Diagnoses Edema R60.9 Edema type: unspecified Chronic right-sided congestive heart failure I50.812 Chronic interstitial lung disease J84.9 Hypokalemia E87.6 Hypomagnesemia E83.42 Type 2 diabetes mellitus E11.9 Diabetes mellitus usp insulin use: with regional sales director use Pulmonary hypertension I27.20 Abnormal LFTs R94.5 Prolonged QT interval R94.31 Elevated troponin R77.8 DVT prophylaxis Z29.9 Time Spent (min) 25 (1) Type 2 diabetes mellitus Diabetes mellitus usp insulin use: with usp use (2) Edema Edema type: unspecified Qualified Code(s): R60.9 - Edema, unspecified
[2020-09-17] MEDS: HEPARIN SOD 5,000 UNIT/0.5 ML VIAL SQ SCH (06:08)
[2020-09-17] MEDS: CLOPIDOGREL BISULFATE 75 MG TAB PO SCH (08:37)
[2020-09-17] MEDS: POTASSIUM CHLORIDE 20 MEQ/15 ML UDC PO SCH (08:37)
[2020-09-17] MEDS: INSULIN ASPART 100 UNITS/ML 3 ML PEN SC SCH ×2 (08:37→12:13)
[2020-09-17] MEDS: PANTOprazole 40 MG TAB PO SCH (08:37)
[2020-09-17] MEDS: CHOLECALCIFEROL 1,000 UNITS 25 MCG TAB PO SCH (08:38)
[2020-09-17 09:13] LABS: Hematocrit (blood only) 42.9 % (42-52); Hemoglobin 13.7 g/dL (14.0-18.0); Mean Corpuscular Hemoglobin 30.6 pg (25-34); Mean Corpuscular Hgb Conc 31.9 g/dL (32-36); Mean Platelet Volume 10.8 fL (7.4-10.4); Platelet Count 199 K/uL (130-400); RDW Coefficient of Variation 18.7 % (11.5-14.5); RDW Standard Deviation 65.1 fL (36.4-46.3); Red Blood Count 4.47 M/uL (4.7-6.1); White Blood Count 8.94 K/uL (4.8-10.8)
[2020-09-17 09:32] LABS: BUN Creatinine Ratio 17.9 (10-20); Calcium 8.2 mg/dl (8.5-10.1); Creatinine Clr Calc Pharmacy 41.9 ml/min; Est GFR (Non-African American) 52.6 ml/min; Potassium 3.8 mmol/L (3.5-5.1)
--- NOTE | 2020-09-17 11:25 | Pharmacy Report ---
Pharmacy Glycemic Short Note 2 - Date of Service September 17, 2020 - Glycemic Short BSG Results (Last 24 hours): 09/16/20 09/16/20 09/16/20 11:26 16:24 20:20 Glucose POC Glucose 160 H 242 H 160 H 09/17/20 09/17/20 09/17/20 07:36 08:55 11:10 Glucose 173 H POC Glucose 93 126 H OUTPATIENT ANTIDIABETIC REGIMEN: * Lantus 16 units SQ HS * NovoLog per scale (up to 50 units/day) * A1c = 8.1% on 06/07/20 * A1c = 7.8% on 09/16/20 ASSESSMENT: 09/17: * Miguel received a total of 34 units of insulin over the last 24 hours * 16 units basal + 18 units bolus * BSGs were acceptable yesterday: [phone] mg/dL * Fasting BSG was 93 mg/dL this AM. * Will reduce Lantus slightly today * Will also tighten CR slightly to account for postprandial hyperglycemia yesterday 09/16: * 79yo T2DM male with adequate outpatient control per A1c * Outpatient regimen is SQ basal bolus insulin regimen. Regimen is weighted towards prandial insulin (16 units basal vs up to 50 units prandial). * Will continue outpatient basal insulin dosing as patient received this dosing last evening and AM fasting BSG is in goal range this morning at 136 mg/dl. * Will use NovLog per weight based CF/CR and titrate based on BSG trends. PLAN FOR INPATIENT GLYCEMIC CONTROL: * Basal insulin - decreased * Lantus 14 units SC HS * Bolus insulin - tightened CR * NovoLog per scale ACHS or Q6hrs while NPO * Goal Range: Low 110 mg/dL - High 140 mg/dL * Correction Factor: 30 mg/dL/unit * Nutritional / Prandial insulin per carb ratio of 1 unit per 10 grams CHO consumed PLAN FOR DISCHARGE: * A1c is in goal range for patient based on age/co-morbidities. No changes needed to outpatient regimen at ID.
[2020-09-17] MEDS ORDERED: INSULIN GLARGINE SOLOSTAR 100 UNITS/ML 3 ML PEN SQ SCH (21:00)
--- NOTE | 2020-09-19 14:37 | Discharge Summary ---
Date of Service September 17, 2020 Admission HPI Per Admitting Provider 79yo male with history of interstitial lung disease and resulting chronic hypoxic respiratory failure on home O2 for several years, 6-8 liters continuously, presents from his PCP's office with LE edema. The patient had had a nurse visit for ear irrigation due to cerumen impaction and it was noted that he had LE edema. Dr Moran, his conveyor mechanic, was contacted and he advised going to the ER due to the worsening edema. Patient is uncertain how long he has had edema. Denies any abdominal bloating or ascites. PADILLA has been at baseline of late - walking 5-10 feet causes dyspnea. This is unchanged. No recent prednisone use. No recent new medications added. While in the ER he had routine blood work showing severe hypomagnesemia and hypokalemia. Principal Diagnosis Edema Discharge Exam Constitutional: no acute distress and no altered mental status Eyes: PERRL ENMT: external ear and nose normal, oropharynx normal Neck: trachea midline, no thyromegaly Respiratory: no respiratory distress Auscultation: + rales (b/l bases, about 1/[address] up back); no wheezes Cardiovascular: Rate/Rhythm: regular rate and regular rhythm Heart Sounds: normal S1, normal S2 and + murmur (3/6 holosystolic LSB ) Vessels: + JVD (to the jaw ), posterior tibial pulses present and dorsalis pedis pulses present Extremities: + edema (<1+ b/l ) Gastrointestinal (Abdomen): normal bowel sounds, soft, nontender, no hepatosplenomegaly Musculoskeletal: Extremities: + clubbing Skin: mild venous stasis changes b/l legs Neurologic: deep tendon reflexes 2+ bilaterally and moves all extremities Psychiatric: Orientation: alert and oriented x 3 Lymphatic: no cervical lymphadenopathy Discharge Data Allergies Allergy/AdvReac Type Severity Reaction Status Date / Time cyanocobalamin (vitamin B12) Allergy Mild Rash Verified 09/15/20 13:28 niacinamide Allergy Unknown RASH Verified 09/15/20 13:28 pyridoxine Allergy Unknown RASH Verified 09/15/20 13:28 riboflavin (vitamin B2) Allergy Unknown RASH Verified 09/15/20 13:28 tetracycline Allergy Unknown RASH Verified 09/15/20 13:28 thiamine (vitamin B1) Allergy Unknown RASH Verified 09/15/20 13:28 Consultations 09/15/20 18:59 ED Decision to Admit Stat Ordered Studies 09/16/20 US venous doppler LE BI Routine Hospital Course (1) Edema: Likely 2nd to severe cor pulmonale/chronic right-sided CHF. ECHO in 2019 showed SEVERE pulmonary HTN and severe right-sided ventricular dysfunction. TSH as well as dopplers to r/o DVT: negative. Due to severe hypokalemia and hypomagnesemia, held the torsemide until the electrolytes normalized. Explained to patient that if the edema is due to cor pulmonale he will likely always have some element of edema. Echo does not show much change. will resume home meds: and continue potassium supplementation as described be low. Recheck BMP within this week. (2) Chronic right-sided congestive heart failure: SEVERE, based on 2019 echo. Right heart disease 2nd to severe ILD / pulmonary HTN. (3) Chronic interstitial lung disease: Idiopathic. Follows with Dr Moran. On nintedanib 100mg daily. Deemed not a lung transplant candidate. No ILD exacerbation at this time. Continue NC O2 as previous. (4) Hypokalemia: severe. suspect combination of daily diuretic, poor oral intake, and diarrhea. nintedanib does not appear to directly cause low K or low Mag (but it causes diarrhea which in turn can waste the electrolytes). required MULTIPLE DOSES OF IV POTASSIUM. (5) Hypomagnesemia: severe. replace with 3 grams mag sulfate x 1 now. resolved. (6) Type 2 diabetes mellitus: cont lantus cont novolog pharmacy glycemic management consult (7) Pulmonary hypertension: severe; PA pressure >100 on 2019 echo. repeat echo this admission. Pulm HTN 2nd ILD. (8) Abnormal LFTs: likely due to passive congestion from right-sided CHF. nintedanib can cause LFT abnormalities but this is less likely. (9) Prolonged QT interval: 2nd low K and low mag. replete both. (10) Elevated troponin: no ischemic symptoms at presentation. likely 2nd to cor pulmonale in the setting of low K and low mag. (11) DVT prophylaxis: heparin 5000 TID Total Time Total Time Spent Total Time Spent (In Minutes): 32 Total Time Includes: Examination of the Patient, Discharge Planning and Medication Reconciliation Discharge Plan Discharge Items Patient Disposition: Home - Self-Care Reason For Visit: HYPOKALEMIA, HYPOMAGNESEMIA, CHRONIC COR PULMONALE Discharge Diagnosis: ELECTROLYTE IMBALANCE Activity: Resume your previous activity Non-emergency contact: Primary Care Provider Call non-emergency contact if: you have any medication questions Follow-up/Referrals: Mp Yeboah MD [Primary Care Provider] - (Dr. Yeboah is unavailable.) Zehra Edmond PA-C [Physician Chemical Etching Processor] - 09/25/20 11:00 am (Dr. Yeboah is unavailable. Follow up appointment scheduled with Zehra Edmond PA-C on Friday09/25/20 at 11:00 am.) Diet: Carb Consistent or DM2 Addtl Attending Provider Instructions: You have been hospitalized for an acute medical problem. During your stay at [facility], we have made an effort to correct the problem that brought you to the hospital while keeping you as comfortable as possible. Medications were used to bring your condition under control and your discharge instructions will include directions for any medications you should take after leaving the hospital. Please make sure you see your Primary Care Provider as part of your follow up plan. Recommend you continue your current medication regimen, however I will continue potassium supplements for now. will recheck magnesium level and potassium level in 4 days. Pending Studies at Discharge: No Stand-Alone Forms: [facility], Smoking Cessation Medications and DC Order Prescriptions: New potassium chloride 10 mEq tablet extended release 10 meq PO DAILY Qty: 30 RF: 0 Continued Novolog Flexpen U-100 Insulin 100 unit/mL (3 mL) insulin pen See Rx Instructions .ROUTE .COMPLEX 90 Days Qty: 3 RF: 3 clopidogrel 75 mg tablet 75 mg PO QAM Qty: 90 RF: 1 hydrocortisone [Proctosol HC] 2.5 % cream with perineal applicator 1 applic MD BID PRN (Reason: hemorrhoids) Qty: 28.35 RF: 1 atorvastatin 20 mg tablet 20 mg PO DAILY Qty: 90 RF: 3 torsemide 20 mg tablet 20 mg PO QAM Qty: 90 RF: 3 meclizine 12.5 mg tablet 12.5 mg PO BID PRN (Reason: dizziness) Qty: 30 RF: 1 Lantus Solostar U-100 Insulin 100 unit/mL (3 mL) insulin pen 16 unit subcut QPM RF: 0 Ofev 100 mg capsule 100 mg PO DAILY Qty: 60 RF: 10 cholecalciferol (vitamin D3) [Vitamin D3] 2,000 unit Tablet 2,000 unit PO QAM RF: 0 amoxicillin 500 mg tablet 2,000 mg PO UD PRN (Reason: prior to dental appointment) RF: 0 pantoprazole 40 mg tablet,delayed release (DR/EC) 40 mg PO DAILY RF: 0 Discontinued potassium 99 mg tablet 99 mg PO QAM RF: 0 Discharge Orders: Discharge Order (Routine); Ordered 09/17/20 Ordered By: Dawson Garcia/Other Patient Handouts: Managing Type 2 Diabetes, A1C Admission Data Admit Date/Time: 09/15/20 19:02 Attending Provider: Dawson Beckham Admit Provider: Romero Ramachandran Primary Care Provider: Mp Yeboah Other Providers: Romero Ramachandran Other Interventions: Discharge Summary Assessment (RN) Last Done: 09/17/20 14:39 Coding Level of Care Code 00210 OBS Care - Discharge Diagnoses Edema R60.9 Edema type: unspecified Chronic right-sided congestive heart failure I50.812 Chronic interstitial lung disease J84.9 Hypokalemia E87.6 Hypomagnesemia E83.42 Type 2 diabetes mellitus E11.9 Diabetes mellitus skilled nursing insulin use: with skilled nursing use Pulmonary hypertension I27.20 Abnormal LFTs R94.5 Prolonged QT interval R94.31 Elevated troponin R77.8 DVT prophylaxis Z29.9
== END 2020-09-17 15:07 | disposition home or self-care (01) ==
LOC: 2S 15:05 → ED 15:05 → SUATTDRO 19:02 → 2S 21:01